=== PATIENT | male | born 1960 | race Caucasian/White ===

== ENCOUNTER → 2016-07-30 | Outpatient (CLI) | payer MEDICARE, MEDICAID ==
[~2016-07-30] MED LIST: /ADVA50050 INH; /RISE35TA OR; ADV250INH INH; ADVA45AE IN; ALBU17IN2 INH; BABY81CH OR; CALA240T PO; CALC12502; CHLO25TA PO; CLAR5CHW; CLAR5CHW OR; CLARITIN D; CRES5TAB OR; EFFE150C OR; EPI PEN SC; FERR325T OR; FLEXERIL OR; FLUT1SPR2; HYDR-3713 PO; LIDO5DIS EXT; LOPERAMIDE OR; LORA0.5T OR; LOSA25TA8 PO; LOVA1CAP17 PO; LOVAZA OR; MS C30TA2 OR; NAPR500T OR; NASONEX; ONDA4TAB6 PO; PREG100CA; RECL5INJ2 IV; RELP40TA PO; RELPAX OR; ROBA750T4 PO; SING10TA31; SING10TA31 OR; SOLARAZE; THERGRAN OR; TRAZ100T; TRAZ50TA PO; TRIA1CR TOP; TRIC145T19 OR; VENL150T PO; VICO5TAB OR; VITA-113 SL; VITA1CAP25 PO; VITATAB11 PO; ZANA4CAP OR; ZYRT10TA6 OR; [UNRECOGNIZED DRUG - OTHER] OR; amitiza PO; drisdol PO; lovaza PO; reclast INJ
--- NOTE | 2016-07-31 01:13 | ECWPNPC ---
PATIENT NAME: SHERON BACON : 1960 GENDER: MALE VISIT DATE: 07/30/2016 DISCHARGE DATE: 07/30/16 1137 VISIT LOCKED DATE TIME: PHYSICIAN: SHAKILA PEDERSEN PHYSICIAN PAGER NO: [phone] RESOURCE: SHAKILA PEDERSEN REASON FOR APPOINTMENT 1. NECK/BACK PAIN HISTORY OF PRESENT ILLNESS HISTORY OF PRESENT ILLNESS: PAIN THE PATIENT DESCRIBES THE PAIN... 55 YEAR OLD MALE PATIENT WITH HISTORY OF CHRONIC NECK AND BACK PAIN. PATIENT DESCRIBES THE PAIN ACHING WITH A PAIN SCORE OF 1/10. PATIENT HAS A CERVICAL FACET BLOCK DONE ON 05/11/16 AND REPORTS THE INJECTION HELPING SIGNIFICANTLY WITH HIS PAIN. MR. BACON REPORTS HAVING MINIMAL PAIN DUE TO THE LAST INJECTIONS. CURRENTLY THE PATIENT IS USING HYDROCODONE PRESCRIBED BY HIS PRIMARY CARE DOCTOR . PATIENT REPORTS HAVING A LITTLE ACHINESS IN HIS LOWER BACK AT TIMES BUT STATES HE IS ABLE TO MANAGE. PATIENT DENIES UNEXPLAINABLE WEIGHT LOSS, FEVER, CHILLS, NEW CHANGES ON HIS URINARY OR BOWEL CONTROL. FALL RISK SCREENING: SCREENING :NO FALLS IN THE PAST YEAR CURRENT MEDICATIONS TAKING EFFEXOR XR 150 MG CAPSULE EXTENDED RELEASE 24 HOUR 2 CAPSULES WITH FOOD ORALLY DAILY TAKING TRIAMCINOLONE ACETONIDE 0.1 % CREAM 1 APPLICATION TO AFFECTED AREA EXTERNALLY TO FACE TWICE A DAY PRN ECZEMA TAKING MULTIVITAMINS OTC TABLET 1 TAB ORALLY DAILY TAKING ZOFRAN 4 MG TABLET 1 TAB ORALLY EVERY 8 HOURS NEEDED TAKING LOSARTAN POTASSIUM 50 MG TABLET 1 TABLET ORALLY TWICE A DAY TAKING CHLORTHALIDONE 25 MG TABLET 1 TABLET IN THE MORNING ORALLY ONCE A DAY TAKING BLOOD GLUCOSE TEST STRIP 1 ONE TOUCH TEST STRIP 250.02 SUBCUTANEOUSLY DAILY TAKING LANCETS 1 LANCTES DEVICE DX:250.02 SUBCUTANEOUSLY DAILY TAKING METFORMIN HCL ER 500 MG TABLET EXTENDED RELEASE 24 HOUR 1 TABLET ORALLY TWICE DAILY TAKING DRISDOL 73862 UNIT CAPSULE 1 CAPSULE ORALLY EVERY OTHER WEEK TAKING CRESTOR 20 MG TABLET 1 TABLET ORALLY ONCE A DAY TAKING LOVAZA 1 GM CAPSULE 2 CAPSULES ORALLY TWICE A DAY TAKING VITAMIN B-12 1000 MCG TABLET 1 TABLET ORALLY ONCE A DAY TAKING ASPIR-81 81 MG TABLET DELAYED RELEASE 1 TABLET ORALLY ONCE A DAY TAKING ADVAIR DISKUS 250-50 MCG/DOSE MISCELLANEOUS 1 INHALATION EVERY 12 HRS TAKING PROVENTIL HFA 108 (90 BASE) MCG/ACT AEROSOL SOLUTION 2 PUFFS NEEDED INHALATION EVERY 4 HRS PRN WHEEZE TAKING LIDODERM 5 % PATCH 1 PATCH TO BOTH HIPS EXTERNALLY ONCE A DAY NEEDED ON 12 HOURS OFF 12 HOURS TAKING TENS UNIT ELECTRO PADS . . DIRECTED . NEEDED TAKING INDUSTRIAL BELT XL DX: 724.2 LUMBAR SUPPORT BELT DIRECTED . DAILY DURING WORK HOURS TAKING ZANAFLEX 4 MG TABLET 1 TABLET ORALLY EVERY 8 HOURS NEEDED FOR MUSCLE SPASTICITY MDD:3 TAKING HYDROCODONE-ACETAMINOPHEN 5-325 MG TABLET 1 TABLET NEEDED ORALLY EVERY 12 HRS PRN PAIN, MDD 2 TAKING EPIPEN 2-OSEAS 0.3 MG/0.3ML (1:1000) DEVICE INJECTABLE INTRAMUSCULAR ONCE NEEDED TAKING ZYRTEC ALLERGY 10 MG TABLET 1 TABLET ORALLY ONCE A DAY TAKING FLONASE 50 MCG/ACT SUSPENSION 2 NASALLY EVERY MORNING TAKING RELPAX 40 MG TABLET 1 TABLET AT ONSET OF HEADACHE, MAY REPEAT AFTER 2 HOURS IF HEADACHE RETURNS ORALLY DAILY PRN HEADACHE, NOTES: > 1 YEAR TAKING VOLTAREN 1 % GEL DIRECTED TRANSDERMAL FOUR TIMES DAILY TAKING TRAZODONE HCL 50 MG TABLET 2 TABLETS AT BEDTIME NEEDED ORALLY ONCE A DAY TAKING LACTULOSE 10 GM PACKET 1 PACKET ORALLY ONCE A DAY - STATES TAKES 15 GM MEDICATION LIST REVIEWED AND RECONCILED WITH THE PATIENT PAST MEDICAL HISTORY LUMBAR DJD-DIFFUSE, 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, DIFFUSE L2/3 AND L5/S1 BULGES BY 07/2014 MRI CHRONIC KIDNEY DISEASE STAGE III HYPERLIPIDEMIA 2B OSTEOPOROSIS NONALCOHOLIC FATTY LIVER DISEASE-SEEN BY AUGUST 2010 CT, FS 2010 FS2 LEVEL OF 45/NEGATIVE W/U-09/2010-REINDL/SEEN 10/2010 LIVER BIOPSY-MILDLY 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 (STAGE 2-3/4)//10/2014 FS 2 17 ANEMIA SECONDARY TO IRON DEFICIENCY MIGRAINE HEADACHES, COMMON TYPE-DECEMBER 2010 NORMAL MRA OF THE BRAIN/01/2011 NORMAL CTA BRAIN HISTORY OF BILATERAL NEPHROLITHIASIS ASTHMA MILD PERSISTENT CONSTIPATION CHRONIC OBSTRUCTIVE SLEEP APNEA VITAMIN B12 DEFICIENCY MUSHROOM ANAPHYLAXIS DYSPEPSIA/GERD ALLERGIC RHINITIS CHRONIC LEUKOPENIA DIABETES MELLITUS TYPE 2 HISTORY OF SBO, FEBRUARY 2010-LADI HISTORY OF NEPHROLITHIASIS-SEPTEMBER 2008, 24H URINE REMARKABLE FOR MILDLY ELEVATED CALCIUM AND URIC ACID ERECTILE DYSFUNCTION HISTORY OF HYPERCALCEMIA WITH SUPPRESSED PTH-SEPTEMBER 2009 WHOLE-BODY BONE SCAN WITH FOCAL UPTAKE BILATERAL RIBS AND COSTOVERTEBRAL JUNCTION/SEPTEMBER 2009 NEGATIVE WHOLE-BODY PET/CT SCAN AND BILATERAL RIB AND CHEST X-RAY ADENOMATOUS POLYP BY COLONOSCOPY OCTOBER 2010-REINDL/10/2011 NORMAL COLONOSCOPY-REINDL R HIP OA-MILD C CAM DEFORMITY SL FEMORAL HEAD BY 09/2013 BILATERAL TROCHANTERIC BURSITIS-MILD BY 09/2013 XRAY H/O GRANULOMA ANNULARE L DORSAL HAND ARTHRITIS TOES ALLERGIES CECLOR: HIVES: ALLERGY ERYTHROMYCIN: HIVES: ALLERGY PCN: HIVES: ALLERGY REGLAN: HIVES: ALLERGY MUSHROOMS: ANAPHYLAXIS: ALLERGY WATERMELON: HIVES: ALLERGY SURGICAL HISTORY NO SURGICAL HISTORY DOCUMENTED. FAMILY HISTORY NO FAMILY HISTORY DOCUMENTED. SOCIAL HISTORY GENERAL: TOBACCO USE ARE YOU A:NONSMOKER LEARNING BARRIERS / SPECIAL NEEDS ORIENTED TO PLAN OF CARE: PATIENT, PAIN MANAGEMENT PATIENT, ORIENTED TO PLAN OF CARE: PATIENT, PAIN MANAGEMENT PATIENT. NEW PATIENT PAIN DIARY TODAY'S VISITNOTES FROM 0-10, WHAT LEVEL IS YOUR PAIN TODAY?0 PAIN CLINIC PFS, CLERGY, PUBLIC HEALTH REFERRALS PFS REFERRAL NEEDED?NO CLERGY REFERRAL NEEDED?NO PUBLIC HEALTH REFERRAL NEEDED?NO WAS THE PROVIDER NOTIFIED OF ANY PERTINENT INFO?NO PFS REFERRAL NEEDED?NO CLERGY REFERRAL NEEDED?NO PUBLIC HEALTH REFERRAL NEEDED?NO WAS THE PROVIDER NOTIFIED OF ANY PERTINENT INFO?NO HOSPITALIZATION/MAJOR DIAGNOSTIC PROCEDURE NONE REVIEW OF SYSTEMS CONSTITUTIONAL: ANY CHANGE IN YOUR MEDICAL CONDITION? NO . CHILLS NO . FEVER NO . INFECTION: DO YOU HAVE NEW INFECTIONS? NO . DO YOU HAVE HISTORY OF MRSA? NO . MUSCULOSKELETAL: ANY NEW PATTERNS OF PAIN OR NUMBNESS? NO . GASTROENTEROLOGY: ANY NEW CHANGE IN BOWEL CONTROL? NO . GENITOURINARY: ANY NEW CHANGE IN BLADDER CONTROL? NO . IS THERE A CHANCE YOU COULD BE ? NO . HEMATOLOGY/LYMPH: DO YOU TAKE ANY BLOOD THINNERS? (FOR EXAMPLE- COUMADIN, PLAVIX, AGGRENOX, PLATEL, PRADAXA, OR XARELTO) NO . WHEN WAS YOUR LAST DOSE? DATE: TIME: . NEUROLOGY: HAVE YOU FALLEN IN THE PAST 6 MONTHS? NO . ANY NEW EXTREMITY NUMBNESS OR WEAKNESS? NO . CARDIOLOGY: DO YOU HAVE A PACEMAKER OR DEFIBRILLATOR? NO . RESPIRATORY: HAVE YOU BEEN SICK IN THE PAST WEEK? NO . FEVER NO . FLU LIKE SYMPTOMS? NO . COUGH NO . INTEGUMENTARY: DO YOU HAVE ANY RASHES OR OPEN SORES? NO . ALLERGIC/IMMUNO: ARE YOU ALLERGIC TO SHELLFISH OR IV DYE? NO . ANY NEW ALLERGIES? NO . PSYCHIATRIC: DO YOU HAVE THOUGHTS OF HURTING YOURSELF OR SOMEONE ELSE? NO . ARE YOU ABUSED, NEGLECTED, OR IN AN UNSAFE ENVIRONMENT? NO . ENDOCRINOLOGY: ARE YOU DIABETIC? YES . OTHER: DO YOU NEED ANY PRESCRIPTIONS? NO . IF YES, PLEASE LIST: ____ . ANY NEW PROBLEMS WITH YOUR MEDICATIONS? NO . WHEN DID YOU LAST EAT? ____ . WHEN DID YOU LAST DRINK? ____ . WHAT DID YOU LAST DRINK? ____ . NAME OF PERSON DRIVING YOU HOME? ____ . DO YOU HAVE ANY OTHER QUESTIONS OR CONCERNS NO . REVIEWED BY: PROVIDER: SHAKILA PEDERSEN MD . VITAL SIGNS WT 247 LBS, HT 74 IN, BMI 31.71 INDEX, BP 121/72 MM HG, HR 90 /MIN, RR 18 /MIN, TEMP 95.7 F, OXYGEN SAT % 95%, NA INITIALS SC 10:40, REVIEWED BY: CM. EXAMINATION : PATIENT IS ALERT O X 3 AND COOPERATIVE. TENDERNESS IN THE CERVICAL AREA. CT DONE ON 08/11/15 OF THE CERVICAL SPINE SHOWS OSTEOARTHRITIS AND BONE CYST IN RIGHT LAMINA OF C4. MRI OF THE LUMBAR SPINE DONE ON 08/09/14 SHOWS DISC BULGE AT L2-L3, L3-L4, L4-L5, AND L5-S1 WITH CANAL STENOSIS, AND FACET HYPERTROPHY. ASSESSMENTS SPONDYLOSIS WITHOUT MYELOPATHY OR RADICULOPATHY, CERVICAL REGION - M47.812 (PRIMARY) SPONDYLOSIS WITHOUT MYELOPATHY OR RADICULOPATHY, CERVICOTHORACIC REGION - M47.813 SPONDYLOSIS WITHOUT MYELOPATHY OR RADICULOPATHY, LUMBAR REGION - M47.816 SPONDYLOSIS WITHOUT MYELOPATHY OR RADICULOPATHY, LUMBOSACRAL REGION - M47.817 TREATMENT SPONDYLOSIS WITHOUT MYELOPATHY OR RADICULOPATHY, CERVICAL REGION NOTES: WE DISCUSSED SEVERAL ISSUES WITH MR. BACON'S PAIN MANAGEMENT CASE. AT THIS TIME THE PATIENT WILL CONTINUE USING THE SAME MEDICATION PRESCRIBED BY HIS PRIMARY DOCTOR. PATIENT AT THIS TIME DOES NOT NEED INTERVENTIONS HE HAS HAD A SIGNIFICANT DECREASE IN PAIN SINCE THE INJECTIONS. PATIENT WILL RETURN TO THE CLINIC IN 5 MONTHS BUT WAS ADVISED TO CALL IF PAIN WORSENS OR WITH ANY QUESTIONS OR CONCERNS. INSTRUCTIONS WERE GIVEN, QUESTIONS WERE ANSWERED, PATIENT REPORTS UNDERSTANDING AND AGREES WITH THE PLAN. I, LING MELISSA, DOCUMENTED THE ABOVE INFORMATION ACTING A SCRIBE FOR DR. PEDERSEN. I HAVE REVIEWED THE ABOVE DOCUMENT, WRITTEN BY LING DUNNE AND I VERIFY THAT IT IS ACCURATE. PROCEDURE CODES FA211 ESTABILISHED PATIENT [facility] CHARGE G8427 DOC MEDS VERIFIED W/PT OR RE G8708 PAIN ASSESS POS TOOL F/U PLAN DOC FOLLOW UP 4 MONTHS ELECTRONICALLY SIGNED BY SHAKILA PEDERSEN MD ON 07/30/2016 AT 06:04 PM EST DISCLAIMER : THIS IS A VISIT SUMMARY EXTRACTED FROM THE [employer] CHART. IT IS NOT A COPY OF THE [employer] PROGRESS NOTE. BRANDAN
== END ==
LOC: M PAIN 10:40
PROVIDERS: ATTEND Anesthesiology
DX: Z09 Encounter for follow-up examination after completed treatment for conditions other than malignant neoplasm (principal); M47.812 Spondylosis without myelopathy or radiculopathy, cervical region; M47.813 Spondylosis without myelopathy or radiculopathy, cervicothoracic region; M47.816 Spondylosis without myelopathy or radiculopathy, lumbar region; M47.817 Spondylosis without myelopathy or radiculopathy, lumbosacral region; M51.37 Other intervertebral disc degeneration, lumbosacral region; M51.27 Other intervertebral disc displacement, lumbosacral region; N18.3 Chronic kidney disease, stage 3 (moderate); E11.9 Type 2 diabetes mellitus without complications; E78.5 Hyperlipidemia, unspecified; M81.0 Age-related osteoporosis without current pathological fracture; K75.81 Nonalcoholic steatohepatitis (NASH); D50.9 Iron deficiency anemia, unspecified; G43.909 Migraine, unspecified, not intractable, without status migrainosus; J45.909 Unspecified asthma, uncomplicated; K59.04 Chronic idiopathic constipation; G47.33 Obstructive sleep apnea (adult) (pediatric); D51.9 Vitamin B12 deficiency anemia, unspecified; K30 Functional dyspepsia; D72.819 Decreased white blood cell count, unspecified; M16.11 Unilateral primary osteoarthritis, right hip; M19.079 Primary osteoarthritis, unspecified ankle and foot; Z91.018 Allergy to other foods; Z88.8 Allergy status to other drugs, medicaments and biological substances; Z79.84 Long term (current) use of oral hypoglycemic drugs; Z79.82 Long term (current) use of aspirin; Z79.891 Long term (current) use of opiate analgesic; Z87.19 Personal history of other diseases of the digestive system; Z87.2 Personal history of diseases of the skin and subcutaneous tissue

== ENCOUNTER → 2016-08-04 | Outpatient (CLI) | payer MEDICARE, MEDICAID ==
--- NOTE | 2016-08-06 12:42 | REP ---
PA and lateral views of the right hand 08/04/2016 Indication ganglion cyst of finger Comparison: Right hand series 09/29/2012 Findings: Flexion deformity is noted at the fifth DIP joint., with radial angulation of the fifth distal phalanx. There is mild flexion of the fifth PIP joint as well. There is focal nodular soft tissue prominence at the radial aspect of the mid portion of the fifth middle phalanx, which may be consistent with ganglion cyst. There is no acute fracture or dislocation within the right hand Carpal bones are intact. Impression: Flexion deformity within the fifth digit most pronounced at PIP joint. Small nodular focus of soft tissue prominence along the radial aspect of the mid shaft of fifth middle phalanx consistent with ganglion cyst. Consider Orthopedic evaluation Signed by Rosemarie Simms MD 08/06/2016 12:33 P
== END ==
LOC: M WUC 08:26
PROVIDERS: ATTEND Physician Assistant Medical
DX: M67.441 Ganglion, right hand (principal)
CPT/HCPCS: 73120; G0463

== ENCOUNTER → 2016-10-10 | Outpatient (CLI) | payer MEDICARE, MEDICAID ==
--- NOTE | 2016-10-14 07:37 | SLEEPCENT ---
DATE OF PROCEDURE: 10/10/2016 ORDERED BY: Maddie Lui. Nocturnal polysomnography was performed due to concern for the obstructive sleep apnea syndrome in this patient with a prior history of same who has not used pressure therapy in greater than 5 years. 8 hours and 51 minutes of data were reviewed. There were 503 minutes of sleep identified. Sleep latency was short at 5 minutes. Rapid eye movement (REM) sleep was delayed at 370 minutes. Sleep architecture showed poor progression and some fragmentation and sleep efficiency was good at 95.7% but REM time was reduced to one-third. Patient EKG showed a sinus mechanism with an average heart rate of 66 beats per minute. Rate variability was seen surrounding respiratory events. EEG showed course wave forms, possibly medication effect. No focal advert abnormalities were appreciated. There were only 51 respiratory events identified of 10 seconds in duration or greater for an apnea-hypopnea index of 6.1. The events were more central than obstructive, in total 40 central and mixed apneas to 11 obstructive events. Respiratory events were not stage related but were more frequent in the supine posture. Arousals from respiratory events occurred 4.3 times per hour when arousals from snoring were included. Oxygen saturations remained acceptable for much of the study. Occasional drops below 90% were seen. There was, however, some limb activity quite frequent in the early portion of the study. At least three trains of events and limb movement arousal index was 9.5. IMPRESSION: 1. Complex albeit mild sleep apnea (G47.31, G47.33). Apnea-hypopnea index 6.1 - supine predominant. 2. Periodic limb movement disorder (G47.61). Limb movement arousal index 9.5. RECOMMENDATION: Physician retraining for avoidance of the supine posture may be efficient to address this patient's respiratory events. Given that they were central in description, this may be a preferable approach than pressure therapy would. Interventions to reduce the frequency of arousal from limb activity is likely to result in improved efficiency of sleep.
== END ==
LOC: M SLEEP 20:00
PROVIDERS: ATTEND Nurse Practitioner Adult Health
DX: G47.31 Primary central sleep apnea (principal); G47.33 Obstructive sleep apnea (adult) (pediatric); G47.61 Periodic limb movement disorder

== ENCOUNTER → 2016-11-08 | Outpatient (REF) | payer MEDICARE, MEDICAID, OTHER | LOC: M SFHCPLAZ 11:41 | PROVIDERS: ATTEND Physician Assistant Medical | DX: L02.11 Cutaneous abscess of neck (principal) | CPT/HCPCS: 10060; 87070; 87077; 87186; 87205; G0463 ==

== ENCOUNTER → 2016-11-27 | Outpatient (CLI) | payer OTHER, MEDICAID ==
--- NOTE | 2016-11-30 11:02 | SLEEPCENT ---
DATE OF PROCEDURE: 11/27/2016 ORDERED BY: Maddie Lui. Nocturnal polysomnography was performed for the titration of pressure therapy in this patient with obstructive sleep apnea syndrome. For testing, the patient was fit with a ResMed AirFit F20 full face mask of medium size, 4 cm of water pressure was initially applied to the circuit and the lights were extinguished. 7 hours and 41 minutes of data were reviewed. There were 258 minutes of sleep identified. Sleep latency was prolonged at 147 minutes. REM latency was mildly prolonged at 201 minutes. Sleep architecture showed poor progression, some fragmentation early in study. Best sleep was seen late in the test. There was one rapid eye movement (REM) episode appreciated. Overall sleep efficiency was 56%. Patient's EKG showed a sinus rhythm with an average heart rate of 78 beats per minute. EEG showed normal wave forms for wake and sleep. Multiple pressure applications were made for a period of time late in the study. A Bilevel device was applied with the addition of backup rate due to central apneas. Best sleep was seen on a CPAP pressure of +8. Some mild snoring was noted despite this pressure but the patient did sleep through REM without respiratory event or significant oxygen desaturation. IMPRESSION: Obstructive sleep apnea syndrome (G47.33). RECOMMENDATION: Nightly use of pressure therapy 8 cm of water.
== END ==
LOC: M SLEEP 20:00
PROVIDERS: ATTEND Nurse Practitioner Adult Health
DX: G47.33 Obstructive sleep apnea (adult) (pediatric) (principal)

== ENCOUNTER → 2016-12-27 | Outpatient (CLI) | payer MEDICARE, MEDICAID | END | disposition home or self-care (01) | LOC: M PAIN 09:00 | PROVIDERS: ATTEND Anesthesiology | DX: G89.29 Other chronic pain (principal); M47.812 Spondylosis without myelopathy or radiculopathy, cervical region; M47.813 Spondylosis without myelopathy or radiculopathy, cervicothoracic region; M47.816 Spondylosis without myelopathy or radiculopathy, lumbar region; M47.817 Spondylosis without myelopathy or radiculopathy, lumbosacral region; M51.37 Other intervertebral disc degeneration, lumbosacral region; M51.27 Other intervertebral disc displacement, lumbosacral region; N18.3 Chronic kidney disease, stage 3 (moderate); E11.9 Type 2 diabetes mellitus without complications; E78.5 Hyperlipidemia, unspecified; M81.0 Age-related osteoporosis without current pathological fracture; K75.81 Nonalcoholic steatohepatitis (NASH); D50.9 Iron deficiency anemia, unspecified; G43.909 Migraine, unspecified, not intractable, without status migrainosus; J45.909 Unspecified asthma, uncomplicated; K59.04 Chronic idiopathic constipation; G47.33 Obstructive sleep apnea (adult) (pediatric); D51.9 Vitamin B12 deficiency anemia, unspecified; K30 Functional dyspepsia; D72.819 Decreased white blood cell count, unspecified; M16.11 Unilateral primary osteoarthritis, right hip; M19.079 Primary osteoarthritis, unspecified ankle and foot; Z91.018 Allergy to other foods; Z88.8 Allergy status to other drugs, medicaments and biological substances; Z79.84 Long term (current) use of oral hypoglycemic drugs; Z79.82 Long term (current) use of aspirin; Z79.891 Long term (current) use of opiate analgesic; Z87.19 Personal history of other diseases of the digestive system; Z87.2 Personal history of diseases of the skin and subcutaneous tissue ==

== ENCOUNTER → 2017-01-07 | Outpatient (CLI) | payer MEDICARE, MEDICAID ==
[~2017-01-07] MED LIST changes: +ASPI1TAB PO; +BUPIVACAINE HCL 0.25% 30 ML VIAL As Ordered ONE; +CRES20TA PO; +EFFE150C PO; +FLOM5CAP PO; +IMIT50TA PO; +ISOVUE-M 300 61% 15ML VIAL (Q9967) As Ordered ONE; +LACT10SO29 PO; +LIDO1OIN2 TOP; +LIDO5DIS41 TD; +LIDOCAINE 1% SDV INJ 30 ML VIAL As Ordered ONE; +METF-699 PO; +NAPR250T4 PO; +OMEG100011 PO; +THERTAB30 PO; +TIZA4CAP3 PO; +TRAZ50TA11 PO; +TRIAMCINOLONE ACETONIDE SUSP 40 MG/ML VIAL (J3301) As Ordered ONE; +TYLE650T35 PO; +VOLT1GEL15 TD; +ZYRT10CA PO
--- NOTE | 2017-01-18 23:21 | ECWPNPC ---
PATIENT NAME: SHERON BACON : 1960 GENDER: MALE VISIT DATE: 01/07/2017 DISCHARGE DATE: 01/07/17 1501 VISIT LOCKED DATE TIME: PHYSICIAN: SHAKILA PEDERSEN PHYSICIAN PAGER NO: [phone] RESOURCE: SHAKILA PEDERSEN REASON FOR APPOINTMENT 1. LFBT HISTORY OF PRESENT ILLNESS HISTORY OF PRESENT ILLNESS: PAIN THE PATIENT DESCRIBES THE PAIN... FALL RISK SCREENING: SCREENING :NO FALLS IN THE PAST YEAR CURRENT MEDICATIONS TAKING ZYRTEC ALLERGY 10 MG TABLET 1 TABLET ORALLY ONCE A DAY, NOTES: 01-07-17799 TAKING FLONASE 50 MCG/ACT SUSPENSION 2 NASALLY EVERY MORNING, NOTES: 01-06-172099 TAKING CRESTOR 20 MG TABLET 1 TABLET ORALLY ONCE A DAY, NOTES: 01-07-17799 TAKING BACTROBAN 2 % OINTMENT 1 THIN LAYER TO EACH NOSTRIL EXTERNALLY BID, NOTES: NONE TAKING HIBICLENS 4 % LIQUID APPLY TO BODY, SCALP FOR 10MIN.S IN SHOWER THEN RINSE EXTERNALLY DAILY, NOTES: NONE TAKING BLOOD GLUCOSE TEST STRIP 1 ONE TOUCH TEST STRIP 250.02 SUBCUTANEOUSLY DAILY TAKING METFORMIN HCL ER 500 MG TABLET EXTENDED RELEASE 24 HOUR 1 TABLET ORALLY TWICE DAILY, NOTES: 01-07-17799 TAKING DRISDOL 95241 UNIT CAPSULE 1 CAPSULE ORALLY EVERY OTHER WEEK, NOTES: 01-13-17 TAKING RECLAST 5 MG/100ML SOLUTION DIRECTED INTRAVENOUS YEARLY, NOTES: NOT YET TAKING EFFEXOR XR 150 MG CAPSULE EXTENDED RELEASE 24 HOUR 2 CAPSULES WITH FOOD ORALLY DAILY, NOTES: 01-06-172099 TAKING TRIAMCINOLONE ACETONIDE 0.1 % CREAM 1 APPLICATION TO AFFECTED AREA EXTERNALLY TO FACE TWICE A DAY PRN ECZEMA, NOTES: 01-07-17799 TAKING MULTIVITAMINS OTC TABLET 1 TAB ORALLY DAILY, NOTES: 01-07-17799 TAKING LANCETS 1 LANCTES DEVICE DX:250.02 SUBCUTANEOUSLY DAILY TAKING VITAMIN B-12 1000 MCG TABLET 1 TABLET ORALLY ONCE A DAY, NOTES: 01-06-172099 TAKING ASPIR-81 81 MG TABLET DELAYED RELEASE 1 TABLET ORALLY ONCE A DAY, NOTES: 01-06-172099 TAKING ADVAIR DISKUS 250-50 MCG/DOSE MISCELLANEOUS 1 INHALATION EVERY 12 HRS, NOTES: 01-06-172099 TAKING PROVENTIL HFA 108 (90 BASE) MCG/ACT AEROSOL SOLUTION 2 PUFFS NEEDED INHALATION EVERY 4 HRS PRN WHEEZE, NOTES: NONE TAKING INDUSTRIAL BELT XL DX: 724.2 LUMBAR SUPPORT BELT DIRECTED . DAILY DURING WORK HOURS TAKING HYDROCODONE-ACETAMINOPHEN 5-325 MG TABLET 1 TABLET NEEDED ORALLY EVERY 12 HRS PRN PAIN, MDD 2, NOTES: COUPLE WEEKS AGO TAKING EPIPEN 2-OSEAS 0.3 MG/0.3ML (1:1000) DEVICE INJECTABLE INTRAMUSCULAR ONCE NEEDED TAKING RELPAX 40 MG TABLET 1 TABLET AT ONSET OF HEADACHE, MAY REPEAT AFTER 2 HOURS IF HEADACHE RETURNS ORALLY DAILY PRN HEADACHE, NOTES: > 1 YEAR TAKING TRAZODONE HCL 50 MG TABLET 2 TABLETS AT BEDTIME NEEDED ORALLY ONCE A DAY, NOTES: NONE RECENT TAKING LACTULOSE 10 GM PACKET 1 PACKET ORALLY ONCE A DAY - STATES TAKES 15 GM TAKING VOLTAREN 1 % GEL DIRECTED TRANSDERMAL FOUR TIMES DAILY, NOTES: NONE RECENT TAKING TENS UNIT ELECTRO PADS . . DIRECTED . NEEDED TAKING LOSARTAN POTASSIUM 50 MG TABLET 1 TABLET ORALLY TWICE DAILY, NOTES: 01-07-17 0800 TAKING ZANAFLEX 4 MG TABLET 1 TABLET ORALLY EVERY 8 HOURS NEEDED FOR MUSCLE SPASTICITY MDD:3, NOTES: 01-06-17 2100 TAKING LOVAZA 1 GM CAPSULE TAKE TWO CAPSULES BY MOUTH TWICE A DAY , NOTES: 01-07-17 0800 TAKING ZOFRAN 4 MG TABLET 1 TAB USUALLY 1-2X/W ORALLY ONE TO TWO TIMES A WEEK NEEDED, NOTES: COUPLE DAYS AGO TAKING LIDODERM 5 % PATCH 2 PATCH TO BOTH HIPS EXTERNALLY ONCE A DAY NEEDED ON 12 HOURS OFF 12 HOURS, NOTES: 01-06-17 TAKING SASHA KNEE BRACE HINGED - MISCELLANEOUS DIRECTED WHILE OOBED WALKING R KNEE _ DAILY NOT-TAKING ZOFRAN 4 MG TABLET 1 TAB ORALLY EVERY 8 HOURS NEEDED MEDICATION LIST REVIEWED AND RECONCILED WITH THE PATIENT PAST MEDICAL HISTORY LUMBAR DJD-DIFFUSE, 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, DIFFUSE L2/3 AND L5/S1 BULGES BY 07/2014 MRI CHRONIC KIDNEY DISEASE STAGE III HYPERLIPIDEMIA 2B OSTEOPOROSIS NONALCOHOLIC FATTY LIVER DISEASE-SEEN BY AUGUST 2010 CT, FS 2010 FS2 LEVEL OF 45/NEGATIVE W/U-09/2010-REINDL/SEEN 10/2010 LIVER BIOPSY-MILDLY 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 (STAGE 2-3/4)//10/2014 FS 2 17 ANEMIA SECONDARY TO IRON DEFICIENCY MIGRAINE HEADACHES, COMMON TYPE-DECEMBER 2010 NORMAL MRA OF THE BRAIN/01/2011 NORMAL CTA BRAIN HISTORY OF BILATERAL NEPHROLITHIASIS ASTHMA MILD PERSISTENT CONSTIPATION CHRONIC OBSTRUCTIVE SLEEP APNEA VITAMIN B12 DEFICIENCY MUSHROOM ANAPHYLAXIS DYSPEPSIA/GERD ALLERGIC RHINITIS CHRONIC LEUKOPENIA DIABETES MELLITUS TYPE 2 HISTORY OF SBO, FEBRUARY 2010-LADI HISTORY OF NEPHROLITHIASIS-SEPTEMBER 2008, 24H URINE REMARKABLE FOR MILDLY ELEVATED CALCIUM AND URIC ACID ERECTILE DYSFUNCTION HISTORY OF HYPERCALCEMIA WITH SUPPRESSED PTH-SEPTEMBER 2009 WHOLE-BODY BONE SCAN WITH FOCAL UPTAKE BILATERAL RIBS AND COSTOVERTEBRAL JUNCTION/SEPTEMBER 2009 NEGATIVE WHOLE-BODY PET/CT SCAN AND BILATERAL RIB AND CHEST X-RAY ADENOMATOUS POLYP BY COLONOSCOPY OCTOBER 2010-REINDL/10/2011 NORMAL COLONOSCOPY-REINDL R HIP OA-MILD C CAM DEFORMITY SL FEMORAL HEAD BY 09/2013 BILATERAL TROCHANTERIC BURSITIS-MILD BY 09/2013 XRAY 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 CONSTITUTIONAL: ANY CHANGE IN YOUR MEDICAL CONDITION? NO . CHILLS NO . FEVER NO . INFECTION: DO YOU HAVE NEW INFECTIONS? NO . DO YOU HAVE HISTORY OF MRSA? NO . MUSCULOSKELETAL: ANY NEW PATTERNS OF PAIN OR NUMBNESS? NO . GASTROENTEROLOGY: ANY NEW CHANGE IN BOWEL CONTROL? NO . GENITOURINARY: ANY NEW CHANGE IN BLADDER CONTROL? NO . IS THERE A CHANCE YOU COULD BE ? NO . HEMATOLOGY/LYMPH: DO YOU TAKE ANY BLOOD THINNERS? (FOR EXAMPLE- COUMADIN, PLAVIX, AGGRENOX, PLATEL, PRADAXA, OR XARELTO) NO . WHEN WAS YOUR LAST DOSE? DATE: TIME: . NEUROLOGY: HAVE YOU FALLEN IN THE PAST 6 MONTHS? NO . ANY NEW EXTREMITY NUMBNESS OR WEAKNESS? NO . CARDIOLOGY: DO YOU HAVE A PACEMAKER OR DEFIBRILLATOR? NO . RESPIRATORY: HAVE YOU BEEN SICK IN THE PAST WEEK? NO . FEVER NO . FLU LIKE SYMPTOMS? NO . COUGH NO . INTEGUMENTARY: DO YOU HAVE ANY RASHES OR OPEN SORES? NO . ALLERGIC/IMMUNO: ARE YOU ALLERGIC TO SHELLFISH OR IV DYE? NO . ANY NEW ALLERGIES? NO . PSYCHIATRIC: DO YOU HAVE THOUGHTS OF HURTING YOURSELF OR SOMEONE ELSE? NO . ARE YOU ABUSED, NEGLECTED, OR IN AN UNSAFE ENVIRONMENT? NO . ENDOCRINOLOGY: ARE YOU DIABETIC? YES FSBS= 151 TOOK AM DIABETIC MEDS . OTHER: DO YOU NEED ANY PRESCRIPTIONS? NO . IF YES, PLEASE LIST: ____ . ANY NEW PROBLEMS WITH YOUR MEDICATIONS? NO . WHEN DID YOU LAST EAT? 01-06-17 7PM . WHEN DID YOU LAST DRINK? 01-07-17 10AM . WHAT DID YOU LAST DRINK? SODA . NAME OF PERSON DRIVING YOU HOME? DEVIN BACON . DO YOU HAVE ANY OTHER QUESTIONS OR CONCERNS NO . VITAL SIGNS WT 236.4 LBS, HT 74 IN, BMI 30.35 INDEX, BP 120/72 MM HG, HR 87 /MIN, RR 18 /MIN, TEMP 98.9 F, OXYGEN SAT % 99%, NA INITIALS SC 12:24, REVIEWED BY: CM. ASSESSMENTS SPONDYLOSIS WITHOUT MYELOPATHY OR RADICULOPATHY, LUMBAR REGION - M47.816 (PRIMARY) SPONDYLOSIS WITHOUT MYELOPATHY OR RADICULOPATHY, LUMBOSACRAL REGION - M47.817 PROCEDURES PN LUMBAR FACET BLOCK THERAPEUTIC PRE PROCEDURE DIAGNOSIS LUMBAR SPONDYLOSIS, LUMBOSACRAL SPONDYLOSIS POST PROCEDURE DIAGNOSIS LUMBAR SPONDYLOSIS, LUMBOSACRAL SPONDYLOSIS PROCEDURE BILATERAL L4-L5 AND BILATERAL L5-S1 LUMBAR FACET THERAPEUTIC BLOCK SURGEON DR. SHAKILA PEDERSEN LIFE EDUCATOR NONE ANESTHESIA LOCAL PRE PROCEDURE NOTE THE PATIENT HAS A HISTORY OF CHRONIC LOW BACK PAIN. I EVALUATE THE PATIENT AND REVIEWED THE CHART. I WENT OVER THE RISKS, ALTERNATIVES, AND BENEFITS ASSOCIATED WITH THIS PROCEDURE. THE PATIENT WOULD LIKE TO PROCEED AND GIVE CONSENT TO PERFORMED THE PROCEDURE. THE PATIENT DENIES UNEXPLAINABLE WEIGHT LOSS, FEVER, CHILLS, OR NEW CHANGES IN URINARY OR BOWEL CONTROL DESCRIPTION OF PROCEDURE THE PATIENT WAS BROUGHT TO THE PROCEDURE ROOM AND PLACED IN THE PRONE POSITION. THE LUMBOSACRAL AREA WAS CLEANED WITH CHLORAPREP SOLUTION AND DRAPED ASEPTICALLY. THE PROCEDURE WAS DONE UNDER STERILE CONDITIONS. I CHECKED LATERALITY AND THE LEVEL WHERE THE PROCEDURE WAS GOING TO BE PERFORMED WITH THE PATIENT AND THE SUPPORTING STAFF AT THE MOMENT OF THE TIME OUT IN THE PROCEDURE ROOM. UNDER FLUOROSCOPIC GUIDANCE, THE TARGET POINT WAS SELECTED AT THE RIGHT AND LEFT L4-L5 AND RIGHT AND LEFT L5-S1 FACET JOINT. TARGET POINT WAS SELECTED AFTER LATERAL ROTATION AND TILT OF THE MAGNIFIER OF THE C-ARM. LIDOCAINE 0.5% WAS USED TO NUMB THE SKIN AND THE SUBCUTANEOUS TISSUE BELOW IT. SPINAL NEEDLES, 22-GAUGE, WERE ADVANCED UNDER FLUOROSCOPIC GUIDANCE AND FOLLOWING PATIENT FEEDBACK UNTIL THE TARGETS WERE TOUCHED. THE POSITION OF THE NEEDLES WAS VERIFIED WITH AP AND LATERAL VIEWS. AFTER PROPER POSITION OF THE NEEDLES WAS ACHIEVED, ISOVUE-M DYE 30% 0.1 ML WAS INJECTED SHOWING ADEQUATE SPREAD OF THE DYE. THEN A SOLUTION OF 1.9 ML OF BUPIVACAINE 0.125% OF KENALOG 10 MG WAS INJECTED AT EACH SITE. THERE WAS NO EVIDENCE OF BLOOD, PARESTHESIA OR CEREBROSPINAL FLUID DURING THE PROCEDURE. THE PATIENT WAS SENT TO THE RECOVERY ROOM. THE PATIENT WAS MOVING THE EXTREMITIES AND DOING WELL. THERE WAS NO COMPLICATION DURING THE PROCEDURE. FLUOROSCOPY TIME WAS 13 SECONDS POST PROCEDURE NOTE THE PATIENT WILL BE SEEN IN A FOLLOW UP IN THE NEXT FEW WEEKS. INSTRUCTIONS WERE GIVEN, QUESTIONS WERE ANSWERED, AND THE PATIENT EXPRESSED UNDERSTANDING AND AGREES WITH THE PLAN. I, LING MELISSA, DOCUMENTED THE ABOVE INFORMATION ACTING A SCRIBE FOR DR. PEDERSEN. I HAVE REVIEWED THE ABOVE DOCUMENT, WRITTEN BY LING MELISSA SCRIBTirso AND I VERIFY THAT IT IS ACCURATE DIAGNOSTIC IMAGING [facility] FACET BLOCK (PAIN)[id number] PROCEDURE CODES 37200 INJ PARAVERT F JNT L/S 1 LEV 73227 INJ PARAVERT F JNT L/S 2 LEV 6045F RADXPS IN END [id number] PXD DISPOSITION & COMMUNICATION FOLLOW UP 3 WEEKS ELECTRONICALLY SIGNED BY SHAKILA PEDERSEN MD ON 01/18/2017 AT 08:51 PM EDT DISCLAIMER : THIS IS A VISIT SUMMARY EXTRACTED FROM THE [employer] CHART. IT IS NOT A COPY OF THE [employer] PROGRESS NOTE. MTDD
== END | disposition home or self-care (01) ==
LOC: M PAIN 11:40
PROVIDERS: ATTEND Anesthesiology
DX: G89.29 Other chronic pain (principal); M47.816 Spondylosis without myelopathy or radiculopathy, lumbar region; M47.817 Spondylosis without myelopathy or radiculopathy, lumbosacral region; M51.37 Other intervertebral disc degeneration, lumbosacral region; M51.27 Other intervertebral disc displacement, lumbosacral region; N18.3 Chronic kidney disease, stage 3 (moderate); E11.9 Type 2 diabetes mellitus without complications; E78.5 Hyperlipidemia, unspecified; M81.0 Age-related osteoporosis without current pathological fracture; K75.81 Nonalcoholic steatohepatitis (NASH); D50.9 Iron deficiency anemia, unspecified; G43.909 Migraine, unspecified, not intractable, without status migrainosus; J45.909 Unspecified asthma, uncomplicated; K59.04 Chronic idiopathic constipation; G47.33 Obstructive sleep apnea (adult) (pediatric); D51.9 Vitamin B12 deficiency anemia, unspecified; K30 Functional dyspepsia; D72.819 Decreased white blood cell count, unspecified; M16.11 Unilateral primary osteoarthritis, right hip; M19.079 Primary osteoarthritis, unspecified ankle and foot; Z91.018 Allergy to other foods; Z88.8 Allergy status to other drugs, medicaments and biological substances; Z79.84 Long term (current) use of oral hypoglycemic drugs; Z79.82 Long term (current) use of aspirin; Z79.891 Long term (current) use of opiate analgesic; Z87.19 Personal history of other diseases of the digestive system; Z87.2 Personal history of diseases of the skin and subcutaneous tissue; Z79.899 Other long term (current) drug therapy
CPT/HCPCS: 36415; 64493; 64494; 80053; 80061; 82105; 82747; 83036; 84443; 84550; 85025; 85610; 85730; J3301; Q9967

== ENCOUNTER → 2017-01-07 | Outpatient (REF) | payer MEDICARE, MEDICAID ==
[~2017-01-07] MED LIST changes: -ASPI1TAB PO; -BUPIVACAINE HCL 0.25% 30 ML VIAL As Ordered ONE; -CRES20TA PO; -EFFE150C PO; -FLOM5CAP PO; -IMIT50TA PO; -ISOVUE-M 300 61% 15ML VIAL (Q9967) As Ordered ONE; -LACT10SO29 PO; -LIDO1OIN2 TOP; -LIDO5DIS41 TD; -LIDOCAINE 1% SDV INJ 30 ML VIAL As Ordered ONE; -METF-699 PO; -NAPR250T4 PO; -OMEG100011 PO; -THERTAB30 PO; -TIZA4CAP3 PO; -TRAZ50TA11 PO; -TRIAMCINOLONE ACETONIDE SUSP 40 MG/ML VIAL (J3301) As Ordered ONE; -TYLE650T35 PO; -VOLT1GEL15 TD; -ZYRT10CA PO
[2017-01-07 12:13] LABS: BASO % 1.1 % (0.0-1.0); EOS # 0.2 K/mm3 (0.0-0.50); EOS % 5.3 % (0.0-3.0); LARGE UNSTAINED CELL # 0.1 K/mm3 (0.0-0.4); LARGE UNSTAINED CELL % 1.2 % (0.0-4.0); LYMPH # 0.7 K/mm3 (1.5-4.5); LYMPH % 13.7 % (24.0-44.0); MEAN CORPUSCULAR HEMOGLOBIN 29.3 pg (27.0-33.0); MEAN CORPUSCULAR HGB CONC 33.3 g/dl (32.0-36.5); MEAN CORPUSCULAR VOLUME 87.8 fl (80.0-96.0); MONO # 0.3 K/mm3 (0.0-0.8); MONO % 5.8 % (0.0-5.0); NEUTROPHILS # 3.4 K/mm3 (1.8-7.7); NEUTROPHILS % 72.9 % (36.0-66.0); PLATELET COUNT, AUTOMATED 187 k/mm3 (150-450); WHITE BLOOD COUNT 4.7 K/mm3 (4.0-10.0)
[2017-01-07 12:27] LABS: INR 0.91
[2017-01-07 12:39] LABS: ALBUMIN 4.1 GM/DL (3.2-5.2); ALBUMIN/GLOBULIN RATIO 1.41 (1.00-1.93); ALKALINE PHOSPHATASE 144 U/L (45-117); ALT/SGPT 62 U/L (12-78); ANION GAP 8 MEQ/L (8-16); AST/SGOT 35 U/L (15-37); BILIRUBIN,TOTAL 0.5 MG/DL (0.2-1.0); BLOOD UREA NITROGEN 14 MG/DL (7-18); CALCIUM LEVEL 9.5 MG/DL (8.5-10.1); CARBON DIOXIDE LEVEL 27 MEQ/L (21-32); CHLORIDE LEVEL 108 MEQ/L (98-107); CHOLESTEROL LEVEL 95 MG/DL (<200); CREATININE FOR GFR 1.04 MG/DL (0.70-1.30); GLOMERULAR FILTRATION RATE > 60.0 (>56); GLUCOSE, FASTING 130 MG/DL (70-105); POTASSIUM SERUM 4.5 MEQ/L (3.5-5.1); SODIUM LEVEL 143 MEQ/L (136-145); TRIGLYCERIDES LEVEL 143 MG/DL (<150); URIC ACID 5.9 MG/DL (3.5-7.2)
[2017-01-07 14:00] LABS: PRETREATED FOLATE FOR RBCFOL 23.9 NG/ML
--- NOTE | 2017-01-07 15:49 | REP ---
FACET BLOCK: The images were reviewed with Dr. Malhotra. The patient has a history of low back pain. The portable C-Arm is provided in the OR for Dr. Larios for fluoroscopic guidance. Two intraoperative fluoroscopic spot films were obtained for needle placement verification for bilateral lumbar facet injection. The films are on the PACs system and are available for review. 13 seconds of fluoroscopy time was utilized for this procedure.
== END ==
LOC: M SFHCPLAZ 07:52
PROVIDERS: ATTEND Family Medicine
DX: K76.0 Fatty (change of) liver, not elsewhere classified (principal); E11.9 Type 2 diabetes mellitus without complications; M19.90 Unspecified osteoarthritis, unspecified site

== ENCOUNTER → 2017-01-14 | Outpatient (REF) | payer MEDICARE, MEDICAID ==
[~2017-01-14] MED LIST changes: +ASPI1TAB PO; +CRES20TA PO; +EFFE150C PO; +FLOM5CAP PO; +IMIT50TA PO; +LACT10SO29 PO; +LIDO1OIN2 TOP; +LIDO5DIS41 TD; +METF-699 PO; +NAPR250T4 PO; +OMEG100011 PO; +THERTAB30 PO; +TIZA4CAP3 PO; +TRAZ50TA11 PO; +TYLE650T35 PO; +VOLT1GEL15 TD; +ZYRT10CA PO
[2017-01-14 11:44] LABS: BASO % 0.4 % (0.0-1.0); EOS # 0.2 K/mm3 (0.0-0.50); EOS % 2.4 % (0.0-3.0); LARGE UNSTAINED CELL # 0.1 K/mm3 (0.0-0.4); LARGE UNSTAINED CELL % 1.5 % (0.0-4.0); LYMPH # 1.2 K/mm3 (1.5-4.5); LYMPH % 12.5 % (24.0-44.0); MEAN CORPUSCULAR HEMOGLOBIN 30.6 pg (27.0-33.0); MEAN CORPUSCULAR HGB CONC 34.9 g/dl (32.0-36.5); MEAN CORPUSCULAR VOLUME 87.9 fl (80.0-96.0); MONO # 0.5 K/mm3 (0.0-0.8); MONO % 5.9 % (0.0-5.0); NEUTROPHILS # 6.8 K/mm3 (1.8-7.7); NEUTROPHILS % 77.1 % (36.0-66.0); PLATELET COUNT, AUTOMATED 194 k/mm3 (150-450); RED CELL DISTRIBUTION WIDTH 14.2 % (11.5-14.5); RETIC HEMOGLOBIN CONTENT CHr 33.4 PG (24-36); RETICULOCYTE ABSOLUTE ADVIA212 162 x10(9)/L (17-77); WHITE BLOOD COUNT 8.8 K/mm3 (4.0-10.0)
[2017-01-14 12:03] LABS: VITAMIN B12 LEVEL 1044 PG/ML (247-911)
[2017-01-14 12:27] LABS: FERRITIN 89 NG/ML (26-388); PERCENT SATURATION 13.5 % (19.7-37.4); TOTAL IRON BINDING CAPACITY 416 UG/DL (250-450); TOTAL PROTEIN 7.7 GM/DL (6.4-8.2)
[2017-01-20 10:29] LABS: ALBUMIN 4.67 GM/DL (3.29-5.55); ALBUMIN % 60.6 % (55.8-66.1); GAMMA GLOBULIN % 11.2 % (11.1-18.8)
== END ==
LOC: M SFHCPLAZ 09:17
PROVIDERS: ATTEND Family Medicine
DX: D64.9 Anemia, unspecified (principal)
CPT/HCPCS: 36415; 82607; 82728; 83550; 84165; 85025; 85046; G0463

== ENCOUNTER → 2017-01-24 | Outpatient (CLI) | payer MEDICARE, MEDICAID ==
--- NOTE | 2017-01-24 23:26 | REP ---
Clinical: Nephrolithiasis. Comparison: 07/01/2014. Findings: Evaluation of the urinary check system demonstrates 12 mm nonobstructing left intrarenal calculus along with mild bilateral chronic perinephric stranding and small bilateral hypodensities suggesting cysts. No hydroureteronephrosis or obstructing ureteral calculi identified. The bladder is normal. Liver, spleen, pancreas, and bilateral adrenal glands are normal for noncontrast evaluation. Splenic calcifications compatible with prior granulomatous disease. The enteric system is without obstruction or acute inflammatory process. Pelvis demonstrates normal bladder and age appropriate prostate/seminal vesicles. No free air. No free fluid. No significant intraperitoneal or retroperitoneal adenopathy. Abdominal aorta without aneurysm. Musculoskeletal structures are intact. Impression: 12 mm nonobstructing left renal calculus along with mild chronic-appearing bilateral perinephric stranding and subcentimeter bilateral renal cysts. Signed by Reggie Patel MD 01/24/2017 11:18 P
== END ==
LOC: M RAD 09:27
PROVIDERS: ATTEND Family Medicine
DX: N28.1 Cyst of kidney, acquired (principal)

== ENCOUNTER 2017-01-28 07:31 | Outpatient (CLI) | payer MEDICARE, MEDICAID ==
[~2017-01-28 07:31] MED LIST changes: -ASPI1TAB PO; -CRES20TA PO; -EFFE150C PO; -FLOM5CAP PO; -IMIT50TA PO; -LACT10SO29 PO; -LIDO1OIN2 TOP; -LIDO5DIS41 TD; -METF-699 PO; -NAPR250T4 PO; -OMEG100011 PO; -THERTAB30 PO; -TIZA4CAP3 PO; -TRAZ50TA11 PO; -TYLE650T35 PO; -VOLT1GEL15 TD; -ZYRT10CA PO
[2017-01-28] MEDS ORDERED: ZOLEDRONIC ACID 5 MG in APPROPRIATE DILUENT 1 EA IV ONE (08:00)
[2017-02-11] MEDS ORDERED: THERTAB30 PO (16:24)
[2017-02-11] MEDS ORDERED: LACT10SO29 PO (16:24)
[2017-02-11] MEDS ORDERED: TRAZ50TA11 PO (16:24)
[2017-02-11] MEDS ORDERED: METF-699 PO (16:24)
[2017-02-11] MEDS ORDERED: VOLT1GEL15 TD (16:24)
[2017-02-11] MEDS ORDERED: ZYRT10CA PO (16:24)
[2017-02-11] MEDS ORDERED: LIDO1OIN2 TOP (16:24)
[2017-02-11] MEDS ORDERED: CRES20TA PO (16:24)
[2017-02-11] MEDS ORDERED: CHLO25TA PO (16:24)
[2017-02-11] MEDS ORDERED: ASPI1TAB PO (16:24)
[2017-02-11] MEDS ORDERED: EFFE150C PO (16:24)
[2017-03-14] MEDS ORDERED: IMIT50TA PO (16:58)
[2017-03-14] MEDS ORDERED: LOVA1CAP17 PO (16:58)
[2017-04-11] MEDS ORDERED: TIZA4CAP3 PO (15:45)
[2017-04-11] MEDS ORDERED: LIDO5DIS41 TD (15:45)
[2017-04-11] MEDS ORDERED: EFFE150C PO (15:45)
[2017-04-11] MEDS ORDERED: NAPR250T4 PO (15:45)
[2017-04-11] MEDS ORDERED: ADV250INH INH (15:45)
[2017-04-11] MEDS ORDERED: OMEG100011 PO (15:47)
== END 2017-01-28 08:20 | disposition home or self-care (01) ==
LOC: M INFU 07:31
PROVIDERS: ATTEND Family Medicine
DX: M85.9 Disorder of bone density and structure, unspecified (principal); Z88.1 Allergy status to other antibiotic agents; Z88.8 Allergy status to other drugs, medicaments and biological substances; Z88.0 Allergy status to penicillin; Z91.048 Other nonmedicinal substance allergy status; Z91.018 Allergy to other foods; Z79.82 Long term (current) use of aspirin; Z79.899 Other long term (current) drug therapy
CPT/HCPCS: 96365; J3489

== ENCOUNTER → 2017-02-02 | Outpatient (CLI) | payer MEDICARE, MEDICAID ==
[~2017-02-02] MED LIST changes: +ASPI1TAB PO; +CRES20TA PO; +EFFE150C PO; +FLOM5CAP PO; +IMIT50TA PO; +LACT10SO29 PO; +LIDO1OIN2 TOP; +LIDO5DIS41 TD; +METF-699 PO; +NAPR250T4 PO; +OMEG100011 PO; +THERTAB30 PO; +TIZA4CAP3 PO; +TRAZ50TA11 PO; +TYLE650T35 PO; +VOLT1GEL15 TD; +ZYRT10CA PO
--- NOTE | 2017-02-17 00:47 | ECWPNPC ---
PATIENT NAME: SHERON BACON : 1960 GENDER: MALE VISIT DATE: 02/02/2017 DISCHARGE DATE: 02/02/17 1617 VISIT LOCKED DATE TIME: PHYSICIAN: SHAKILA PEDERSEN PHYSICIAN PAGER NO: [phone] RESOURCE: SHAKILA PEDERSEN REASON FOR APPOINTMENT 1. LOW BACK PAIN HISTORY OF PRESENT ILLNESS HISTORY OF PRESENT ILLNESS: PAIN THE PATIENT DESCRIBES THE PAIN... 56 YEAR OLD MALE PATIENT WITH HISTORY OF CHRONIC LOW BACK PAIN. PATIENT DESCRIBES THE PAIN ACHING AND THROBBING WITH A PAIN SCORE OF 2/10. PATIENT RECEIVED A LUMBAR FACET BLOCK ON 01/07/17 AND REPORTS HAVING OVER 50% RELIEF FROM PAIN WITH INCREASED MOBILITY AND FUNCTIONALITY SINCE THE INJECTION. PATIENT IS CURRENTLY USING HYDROCODONE NEEDED AND SOME DAYS NOT USE THE MEDICATION AT ALL. PATIENT DENIES UNEXPLAINABLE WEIGHT LOSS, FEVER, CHILLS, NEW CHANGES ON HER URINARY OR BOWEL CONTROL. FALL RISK SCREENING: SCREENING :NO FALLS IN THE PAST YEAR CURRENT MEDICATIONS TAKING LOSARTAN POTASSIUM 50 MG TABLET 1 TABLET ORALLY TWICE A DAY TAKING CHLORTHALIDONE 25 MG TABLET 1 TABLET IN THE MORNING ORALLY ONCE A DAY TAKING DRISDOL 33426 UNIT CAPSULE 1 CAPSULE ORALLY EVERY OTHER WEEK TAKING CRESTOR 20 MG TABLET 1 TABLET ORALLY ONCE A DAY TAKING VITAMIN B-12 1000 MCG TABLET 1 TABLET ORALLY ONCE A DAY TAKING ASPIR-81 81 MG TABLET DELAYED RELEASE 1 TABLET ORALLY ONCE A DAY TAKING ADVAIR DISKUS 250-50 MCG/DOSE MISCELLANEOUS 1 INHALATION EVERY 12 HRS TAKING PROVENTIL HFA 108 (90 BASE) MCG/ACT AEROSOL SOLUTION 2 PUFFS NEEDED INHALATION EVERY 4 HRS PRN WHEEZE TAKING LIDODERM 5 % PATCH 1 PATCH TO BOTH HIPS EXTERNALLY ONCE A DAY ON 12 HOURS OFF 12 HOURS TAKING TENS UNIT ELECTRO PADS . . DIRECTED . NEEDED TAKING INDUSTRIAL BELT XL DX: 724.2 LUMBAR SUPPORT BELT DIRECTED . DAILY DURING WORK HOURS TAKING HYDROCODONE-ACETAMINOPHEN 5-325 MG TABLET 1 TABLET NEEDED ORALLY EVERY 12 HRS PRN PAIN, MDD 2 TAKING EPIPEN 2-OSEAS 0.3 MG/0.3ML (1:1000) DEVICE INJECTABLE INTRAMUSCULAR ONCE NEEDED TAKING ZYRTEC ALLERGY 10 MG TABLET 1 TABLET ORALLY ONCE A DAY TAKING FLONASE 50 MCG/ACT SUSPENSION 2 NASALLY EVERY MORNING TAKING RELPAX 40 MG TABLET 1 TABLET AT ONSET OF HEADACHE, MAY REPEAT AFTER 2 HOURS IF HEADACHE RETURNS ORALLY QD PRN HEADACHE TAKING RECLAST 5 MG/100ML SOLUTION DIRECTED INTRAVENOUS YEARLY, NOTES: NOT YET TAKING EFFEXOR XR 150 MG CAPSULE EXTENDED RELEASE 24 HOUR 2 CAPSULES WITH FOOD ORALLY DAILY, NOTES: 01-06-172099 TAKING TRIAMCINOLONE ACETONIDE 0.1 % CREAM 1 APPLICATION TO AFFECTED AREA EXTERNALLY TO FACE TWICE A DAY PRN ECZEMA, NOTES: 01-07-17799 TAKING MULTIVITAMINS OTC TABLET 1 TAB ORALLY DAILY, NOTES: 01-07-17799 TAKING TRAZODONE HCL 50 MG TABLET 2 TABLETS AT BEDTIME NEEDED ORALLY ONCE A DAY, NOTES: NONE RECENT TAKING LOSARTAN POTASSIUM 50 MG TABLET 1 TABLET ORALLY TWICE DAILY, NOTES: 01-07-17799 TAKING ZOFRAN 4 MG TABLET 1 TAB USUALLY 1-2X/W ORALLY ONE TO TWO TIMES A WEEK NEEDED, NOTES: COUPLE DAYS AGO TAKING SASHA KNEE BRACE HINGED - MISCELLANEOUS DIRECTED WHILE OOBED WALKING R KNEE _ DAILY TAKING BLOOD GLUCOSE MONITOR SYSTEM W/DEVICE KIT ONE TOUCH VERIO FLEX DX: E11.9 DAILY TAKING LANCETS - MISCELLANEOUS DX: E11.9 ONE TOUCH VERIO FLEX INTRADERMALLY DAILY TAKING BLOOD GLUCOSE TEST - STRIP DIRECTED INTRADERMALLY DX: E11.9 DAILY TAKING LACTULOSE 10 GM/15ML SOLUTION 30 ML ORALLY ONCE A DAY - STATES TAKES 15 GM TAKING VOLTAREN 1 % GEL DIRECTED TRANSDERMAL FOUR TIMES DAILY TAKING BLOOD GLUCOSE TEST STRIP 1 ONE TOUCH TEST STRIP 250.02 SUBCUTANEOUSLY DAILY TAKING LANCETS 1 LANCTES DEVICE DX:250.02 SUBCUTANEOUSLY DAILY TAKING METFORMIN HCL ER 500 MG TABLET EXTENDED RELEASE 24 HOUR 1 TABLET ORALLY TWICE DAILY TAKING LOVAZA 1 GM CAPSULE 2 CAPSULES ORALLY TWICE A DAY TAKING ZANAFLEX 4 MG TABLET 1 TABLET ORALLY EVERY 8 HOURS NEEDED FOR MUSCLE SPASTICITY MDD:3 PAST MEDICAL HISTORY LUMBAR DJD-DIFFUSE, 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, DIFFUSE L2/3 AND L5/S1 BULGES BY 07/2014 MRI CHRONIC KIDNEY DISEASE STAGE III HYPERLIPIDEMIA 2B OSTEOPOROSIS NONALCOHOLIC FATTY LIVER DISEASE-SEEN BY AUGUST 2010 CT, FS 2010 FS2 LEVEL OF 45/NEGATIVE W/U-09/2010-REINDL/SEEN 10/2010 LIVER BIOPSY-MILDLY 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 (STAGE 2-3/4)//10/2014 FS 2 17 ANEMIA SECONDARY TO IRON DEFICIENCY MIGRAINE HEADACHES, COMMON TYPE-DECEMBER 2010 NORMAL MRA OF THE BRAIN/01/2011 NORMAL CTA BRAIN HISTORY OF BILATERAL NEPHROLITHIASIS ASTHMA MILD PERSISTENT CONSTIPATION CHRONIC OBSTRUCTIVE SLEEP APNEA VITAMIN B12 DEFICIENCY MUSHROOM ANAPHYLAXIS DYSPEPSIA/GERD ALLERGIC RHINITIS CHRONIC LEUKOPENIA DIABETES MELLITUS TYPE 2 HISTORY OF SBO, FEBRUARY 2010-LADI HISTORY OF NEPHROLITHIASIS-SEPTEMBER 2008, 24H URINE REMARKABLE FOR MILDLY ELEVATED CALCIUM AND URIC ACID ERECTILE DYSFUNCTION HISTORY OF HYPERCALCEMIA WITH SUPPRESSED PTH-SEPTEMBER 2009 WHOLE-BODY BONE SCAN WITH FOCAL UPTAKE BILATERAL RIBS AND COSTOVERTEBRAL JUNCTION/SEPTEMBER 2009 NEGATIVE WHOLE-BODY PET/CT SCAN AND BILATERAL RIB AND CHEST X-RAY ADENOMATOUS POLYP BY COLONOSCOPY OCTOBER 2010-REINDL/10/2011 NORMAL COLONOSCOPY-REINDL R HIP OA-MILD C CAM DEFORMITY SL FEMORAL HEAD BY 09/2013 BILATERAL TROCHANTERIC BURSITIS-MILD BY 09/2013 XRAY 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 SISTER ACQUIRED, A NURSE 10/2016 ALLERGIES CECLOR: HIVES: ALLERGY ERYTHROMYCIN: HIVES: ALLERGY PCN: HIVES: ALLERGY REGLAN: HIVES: ALLERGY MUSHROOMS: ANAPHYLAXIS: ALLERGY WATERMELON: HIVES: ALLERGY REVIEW OF SYSTEMS REVIEWED BY: PROVIDER: SHAKILA PEDERSEN MD . CONSTITUTIONAL: ANY CHANGE IN YOUR MEDICAL CONDITION? NO . CHILLS NO . FEVER NO . INFECTION: DO YOU HAVE NEW INFECTIONS? NO . DO YOU HAVE HISTORY OF MRSA? NO . MUSCULOSKELETAL: ANY NEW PATTERNS OF PAIN OR NUMBNESS? NO . GASTROENTEROLOGY: ANY NEW CHANGE IN BOWEL CONTROL? NO . GENITOURINARY: ANY NEW CHANGE IN BLADDER CONTROL? NO . IS THERE A CHANCE YOU COULD BE ? NO . HEMATOLOGY/LYMPH: DO YOU TAKE ANY BLOOD THINNERS? (FOR EXAMPLE- COUMADIN, PLAVIX, AGGRENOX, PLATEL, PRADAXA, OR XARELTO) NO . WHEN WAS YOUR LAST DOSE? DATE: TIME: . NEUROLOGY: HAVE YOU FALLEN IN THE PAST 6 MONTHS? NO . ANY NEW EXTREMITY NUMBNESS OR WEAKNESS? NO . CARDIOLOGY: DO YOU HAVE A PACEMAKER OR DEFIBRILLATOR? NO . RESPIRATORY: HAVE YOU BEEN SICK IN THE PAST WEEK? NO . FEVER NO . FLU LIKE SYMPTOMS? NO . COUGH NO . INTEGUMENTARY: DO YOU HAVE ANY RASHES OR OPEN SORES? NO . ALLERGIC/IMMUNO: ARE YOU ALLERGIC TO SHELLFISH OR IV DYE? NO . ANY NEW ALLERGIES? NO . PSYCHIATRIC: DO YOU HAVE THOUGHTS OF HURTING YOURSELF OR SOMEONE ELSE? NO . ARE YOU ABUSED, NEGLECTED, OR IN AN UNSAFE ENVIRONMENT? NO . ENDOCRINOLOGY: ARE YOU DIABETIC? YES . OTHER: DO YOU NEED ANY PRESCRIPTIONS? NO . IF YES, PLEASE LIST: ____ . ANY NEW PROBLEMS WITH YOUR MEDICATIONS? NO . WHEN DID YOU LAST EAT? ____ . WHEN DID YOU LAST DRINK? ____ . WHAT DID YOU LAST DRINK? ____ . NAME OF PERSON DRIVING YOU HOME? ____ . DO YOU HAVE ANY OTHER QUESTIONS OR CONCERNS NO . VITAL SIGNS WT 238.0 LBS, HT 74 IN, BMI 30.55 INDEX, BP 142/81 MM HG, HR 104 /MIN, RR 16 /MIN, TEMP 96.0 F, OXYGEN SAT % 98%, NA INITIALS TL 1514, REVIEWED BY: KG. EXAMINATION : PATIENT IS ALERT O X 3 AND COOPERATIVE. TENDERNESS IN THE CERVICAL AREA. BANDS OF TISSUE, RESTRICTION OF MOVEMENT, AND PRESENCE OF TRIGGER POINTS IN THE THORACIC AND LOWER BACK. CT DONE ON 08/11/15 OF THE CERVICAL SPINE SHOWS OSTEOARTHRITIS AND BONE CYST IN RIGHT LAMINA OF C4. MRI OF THE LUMBAR SPINE DONE ON 08/09/14 SHOWS DISC BULGE AT L2-L3, L3-L4, L4-L5, AND L5-S1 WITH CANAL STENOSIS, AND FACET HYPERTROPHY. ASSESSMENTS MYALGIA - M79.1 (PRIMARY) SPONDYLOSIS WITHOUT MYELOPATHY OR RADICULOPATHY, LUMBAR REGION - M47.816 SPONDYLOSIS WITHOUT MYELOPATHY OR RADICULOPATHY, LUMBOSACRAL REGION - M47.817 TREATMENT MYALGIA NOTES: WE DISCUSSED SEVERAL ISSUES WITH MR. BACON'S PAIN MANAGEMENT CASE. AT THIS TIME THE PATIENT WILL CONTINUE WITH THE SAME MEDICATION PRESCRIBED BY HIS PRIMARY DOCTOR. PATIENT REPORTS HIS LOWER BACK INCREASING IN PAIN. AT THIS TIME THE PATIENT IS STILL DOING VERY WELL FROM THE LUMBAR FACET ON 01/07/17 AND STATES THAT HE HAS HAD OVER 50% RELIEF FROM THE PAIN AND HAS NOT USED ANY PAIN MEDICATION SINCE. PATIENT WILL RETURN TO THE CLINIC IN 2 MONTHS BUT WAS ADVISED TO CALL IF THE PAINS SIGNIFICANTLY INCREASES. INSTRUCTIONS WERE GIVEN, QUESTIONS WERE ANSWERED, PATIENT REPORTS UNDERSTANDING AND AGREES WITH THE PLAN. ILING, DOCUMENTED THE ABOVE INFORMATION ACTING A SCRIBE FOR DR. PEDERSEN. I HAVE REVIEWED THE ABOVE DOCUMENT, WRITTEN BY LING DUNNE AND I VERIFY THAT IT IS ACCURATE. PROCEDURE CODES FA211 ESTABILISHED PATIENT [facility] FACILITY CHARGE G8427 DOC MEDS VERIFIED W/PT OR RE G8730 PAIN ASSESS POS TOOL F/U PLAN DOC DISPOSITION & COMMUNICATION ELECTRONICALLY SIGNED BY SHAKILA PEDERSEN MD ON 02/14/2017 AT 01:17 PM EDT DISCLAIMER : THIS IS A VISIT SUMMARY EXTRACTED FROM THE [employer] CHART. IT IS NOT A COPY OF THE [employer] PROGRESS NOTE. HERVED
== END ==
LOC: M PAIN 15:00
PROVIDERS: ATTEND Anesthesiology
DX: M79.1 Myalgia (principal); M47.816 Spondylosis without myelopathy or radiculopathy, lumbar region; M47.817 Spondylosis without myelopathy or radiculopathy, lumbosacral region; G89.29 Other chronic pain; M54.5 Low back pain; I12.9 Hypertensive chronic kidney disease with stage 1 through stage 4 chronic kidney disease, or unspecified chronic kidney disease; E11.9 Type 2 diabetes mellitus without complications; E78.5 Hyperlipidemia, unspecified; M81.0 Age-related osteoporosis without current pathological fracture; N18.2 Chronic kidney disease, stage 2 (mild); J45.30 Mild persistent asthma, uncomplicated; Z79.82 Long term (current) use of aspirin; Z79.891 Long term (current) use of opiate analgesic; Z79.84 Long term (current) use of oral hypoglycemic drugs; Z88.0 Allergy status to penicillin; Z88.8 Allergy status to other drugs, medicaments and biological substances; Z91.018 Allergy to other foods

== ENCOUNTER → 2017-02-07 | Outpatient (CLI) | payer MEDICARE, MEDICAID ==
[2017-02-07 19:25] LABS: ANION GAP 5 MEQ/L (8-16); BLOOD UREA NITROGEN 17 MG/DL (7-18); CALCIUM LEVEL 9.5 MG/DL (8.5-10.1); CARBON DIOXIDE LEVEL 24 MEQ/L (21-32); CHLORIDE LEVEL 109 MEQ/L (98-107); CREATININE FOR GFR 1.09 MG/DL (0.70-1.30); GLOMERULAR FILTRATION RATE > 60.0 (>56); GLUCOSE, FASTING 112 MG/DL (70-105); POTASSIUM SERUM 4.5 MEQ/L (3.5-5.1); SODIUM LEVEL 138 MEQ/L (136-145)
[2017-02-07 19:28] LABS: MICROSCOPIC INDICATED? MAN YES (NO)
[2017-02-07 20:00] LABS: MEAN CORPUSCULAR HEMOGLOBIN 29.8 pg (27.0-33.0); MEAN CORPUSCULAR HGB CONC 33.5 g/dl (32.0-36.5); MEAN CORPUSCULAR VOLUME 88.7 fl (80.0-96.0); WHITE BLOOD COUNT 7.1 K/mm3 (4.0-10.0)
[2017-02-07 20:47] LABS: RBC, URINE NONE SEEN /hpf (0-3); SQUAMOUS EPITHELIAL CELL URINE SMALL AMOUNT /hpf (SMALL AMT)
[2017-02-07 20:49] LABS: BACTERIA, URINE NONE SEEN; MICROSCOPIC EXAM PERFORMED
== END ==
LOC: M SMT 14:55
PROVIDERS: ATTEND Nurse Practitioner Women's Health
DX: Z01.818 Encounter for other preprocedural examination (principal); N20.0 Calculus of kidney
CPT/HCPCS: 36415; 80048; 81000; 85027; 87086; G0463

== ENCOUNTER 2017-02-17 06:03 | Day surgery (SDC) | payer MEDICARE, MEDICAID ==
[~2017-02-17] VITALS: Ht 188 cm; Wt 106.1 kg
[~2017-02-17 06:03] MED LIST changes: -FLOM5CAP PO; -IMIT50TA PO; -LIDO5DIS41 TD; -NAPR250T4 PO; -OMEG100011 PO; -TIZA4CAP3 PO; -TYLE650T35 PO
[2017-02-17] MEDS ORDERED: LR 1,000 ML IV SCH (06:30)
[2017-02-17] MEDS ORDERED: CLINDAMYCIN 900 MG/50 ML PREMIX BAG As Ordered ONE (06:52)
[2017-02-17] MEDS ORDERED: CLINDAMYCIN 900 MG in APPROPRIATE DILUENT 1 EA IV ONE (07:00)
--- NOTE | 2017-02-17 07:34 | REP ---
Clinical: Nephrolithiasis. Correlation: CT dated 01/24/2017. Findings: Single supine view of the abdomen and pelvis demonstrates nonspecific bowel gas pattern. Left renal calculi are again identified and essentially unchanged when correlated with recent CT. A 2 mm calcification in the left yadira pelvis correlates with phlebolith on CT imaging. Impression: Limited evaluation. Left intrarenal calcifications essentially unchanged compared to prior CT. Signed by Reggie Patel MD 02/17/2017 07:25 A
[2017-02-17] MEDS ORDERED: PROPOFOL 200 MG/20 ML VIAL As Ordered ONE (07:44)
[2017-02-17] MEDS ORDERED: ONDANSETRON 4MG/2ML VIAL (J2405) As Ordered ONE (07:44)
[2017-02-17] MEDS ORDERED: fentaNYL 100 MCG/2 ML INJECTION (J3010) As Ordered ONE (07:44)
[2017-02-17] MEDS ORDERED: LIDOCAINE 2% INJ 100 MG/5 ML SDV (FOR ANES.) As Ordered ONE (07:44)
[2017-02-17] MEDS ORDERED: MIDAZOLAM INJ 2 MG/2 ML VIAL (J2250) As Ordered ONE (07:44)
[2017-02-17] MEDS ORDERED: FLOM5CAP PO (07:48)
[2017-02-17 09:00] VITALS: BP 136/79
--- NOTE | 2017-02-17 18:18 | ECGEPIP ---
Stationary ECG Study [facility] Test Date: 2017-02-17 Pat Name: SHERON BACON Department: Room: - Gender: M Surgery Nurse: : 1960 Requested By: EMERSON Jean Order Number: [id number] Reading MD: Conrado Hyde Measurements Intervals Bedias Rate: 71 P: -11 GA: 169 QRS: -40 QRSD: 129 T: 42 QT: 374 QTc: 408 Interpretive Statements Normal sinus rhythm LA conduction disturbance? Left axis deviation, incomplete LBBB and voltage criteria for LVH by Shaji. Increased QRS duration from last tracing 08/11/15. Electronically Signed On 02-17-2017 18:18:12 EDT by Conrado Hyde
--- NOTE | 2017-02-18 10:26 | RO ---
DATE OF PROCEDURE: 02/17/2017 PREPROCEDURE DIAGNOSIS: Left kidney stone. POSTPROCEDURE DIAGNOSIS: Left kidney stone. FINDINGS: 1.2 cm left kidney stone in lower pole. PROCEDURE: Left extracorporeal shock wave lithotripsy. SURGEON: Pepe Harrell MD SHUTDOWN COORDINATOR: None. ANESTHESIA: MAC. COMPLICATIONS: None. ESTIMATED BLOOD LOSS: N/A. HISTORY OF THE PRESENT ILLNESS: This is a 56-year-old male patient that has a 1.2 cm left lower pole kidney stone. The patient has consented for a left extracorporeal shock wave lithotripsy. DESCRIPTION OF OPERATION: With the patient under MAC anesthesia in supine position after finding the stone with x-ray and ultrasound, we gave a total of 2500 impulses at a power of 1 to 20. The first 100 shockwave lithotripsies were done at a level of 1 to 5, the following 100 shockwave lithotripsies were at level of 5 to 10, and the following 2300 shockwave lithotripsies were done at a level of 10 to 20. The patient tolerated well the procedure. There were no complications. PLAN: The patient will go home with Vicodin that he already has at his house and Flomax once a day for 30 days. Followup at [facility] in about 2 to 3 weeks. At that moment in time, we will decide if he needs a second session or not of shockwave lithotripsy.
[2017-03-14] MEDS ORDERED: LOVA1CAP17 PO (16:58)
[2017-03-14] MEDS ORDERED: IMIT50TA PO (16:58)
[2017-04-11] MEDS ORDERED: EFFE150C PO (15:45)
[2017-04-11] MEDS ORDERED: NAPR250T4 PO (15:45)
[2017-04-11] MEDS ORDERED: TIZA4CAP3 PO (15:45)
[2017-04-11] MEDS ORDERED: ADV250INH INH (15:45)
[2017-04-11] MEDS ORDERED: LIDO5DIS41 TD (15:45)
[2017-04-11] MEDS ORDERED: OMEG100011 PO (15:47)
== END 2017-02-17 09:15 | disposition home or self-care (01) ==
LOC: M SDC 06:03
PROVIDERS: ATTEND Urology
DX: N20.0 Calculus of kidney (principal); E11.22 Type 2 diabetes mellitus with diabetic chronic kidney disease; I25.10 Atherosclerotic heart disease of native coronary artery without angina pectoris; I12.9 Hypertensive chronic kidney disease with stage 1 through stage 4 chronic kidney disease, or unspecified chronic kidney disease; N18.3 Chronic kidney disease, stage 3 (moderate); J45.909 Unspecified asthma, uncomplicated; F32.9 Major depressive disorder, single episode, unspecified; E78.00 Pure hypercholesterolemia, unspecified; G47.33 Obstructive sleep apnea (adult) (pediatric); M54.9 Dorsalgia, unspecified; K76.0 Fatty (change of) liver, not elsewhere classified; D50.9 Iron deficiency anemia, unspecified; D72.819 Decreased white blood cell count, unspecified; Z86.14 Personal history of Methicillin resistant Staphylococcus aureus infection; Z86.11 Personal history of tuberculosis; M19.90 Unspecified osteoarthritis, unspecified site; Z79.899 Other long term (current) drug therapy; Z79.84 Long term (current) use of oral hypoglycemic drugs; Z79.51 Long term (current) use of inhaled steroids; Z79.82 Long term (current) use of aspirin; Z91.018 Allergy to other foods; Z88.1 Allergy status to other antibiotic agents; Z88.8 Allergy status to other drugs, medicaments and biological substances; Z88.0 Allergy status to penicillin; Z91.048 Other nonmedicinal substance allergy status
CPT/HCPCS: 50590; 74000; 93005; J2250; J2405; J3010

== ENCOUNTER → 2017-03-11 | Outpatient (CLI) | payer MEDICARE ==
[~2017-03-11] MED LIST changes: +FLOM5CAP PO; +IMIT50TA PO; +LIDO5DIS41 TD; +NAPR250T4 PO; +OMEG100011 PO; +TIZA4CAP3 PO; +TYLE650T35 PO
--- NOTE | 2017-03-11 10:55 | REP ---
KUB: Two views. HISTORY: Kidney stone. COMPARISON STUDY: February 17, 2017. Comparison CT study January 24, 2017. FINDINGS: There is a surgical clip in the right lower quadrant and there are skin richard in the left inguinal region. There is more bowel gas overlying the kidneys today. However, there appears to be opaque calcific material projecting at the level of the lower pole and mid pole of the left kidney. This appears smaller suggesting interval treatment. The two calcific opacities measure 4 and 6 mm in greatest diameter in the mid and lower pole respectively. There is a 4 mm calcification over the left psoas muscle at the level of the transverse process of L4 which may be a left ureteral stone. This is a new finding. IMPRESSION: There are two areas of intrarenal calcification apparent in the left kidney. A possible left mid ureteral stone is seen. Signed by Duane Camargo MD 03/11/2017 11:50 A
== END ==
LOC: M SMT 08:47
PROVIDERS: ATTEND Nurse Practitioner Women's Health
DX: N20.0 Calculus of kidney (principal)

== ENCOUNTER → 2017-03-14 | Outpatient (REF) | payer MEDICARE, MEDICAID ==
[2017-03-14 18:58] LABS: INR 1.01
[2017-03-14 18:59] LABS: ANION GAP 11 MEQ/L (8-16); BLOOD UREA NITROGEN 14 MG/DL (7-18); CALCIUM LEVEL 9.6 MG/DL (8.5-10.1); CARBON DIOXIDE LEVEL 25 MEQ/L (21-32); CHLORIDE LEVEL 107 MEQ/L (98-107); GLOMERULAR FILTRATION RATE > 60.0 (>56); GLUCOSE, FASTING 191 MG/DL (70-105); POTASSIUM SERUM 4.9 MEQ/L (3.5-5.1); SODIUM LEVEL 143 MEQ/L (136-145)
[2017-03-14 19:42] LABS: MEAN CORPUSCULAR HGB CONC 33.8 g/dl (32.0-36.5); MEAN CORPUSCULAR VOLUME 88.9 fl (80.0-96.0); RED CELL DISTRIBUTION WIDTH 14.3 % (11.5-14.5); WHITE BLOOD COUNT 5.7 K/mm3 (4.0-10.0)
== END ==
LOC: M LAB REF 17:17
PROVIDERS: ATTEND Nurse Practitioner Women's Health
DX: Z01.818 Encounter for other preprocedural examination (principal); N20.0 Calculus of kidney; Z79.01 Long term (current) use of anticoagulants

== ENCOUNTER 2017-03-17 08:49 | Day surgery (SDC) | payer MEDICARE, MEDICAID ==
[~2017-03-17] VITALS: Ht 188 cm; Wt 108.0 kg
[~2017-03-17 08:49] MED LIST changes: -LIDO5DIS41 TD; -NAPR250T4 PO; -OMEG100011 PO; -TIZA4CAP3 PO; -TYLE650T35 PO
[2017-03-17] MEDS ORDERED: CIPROFLOXACIN 400 MG in APPROPRIATE DILUENT 1 EA IV ONE (09:00)
[2017-03-17] MEDS ORDERED: LR 1,000 ML IV SCH ×2 (09:00→12:15)
[2017-03-17] MEDS ORDERED: LIDOCAINE 2% INJ 100 MG/5 ML SDV (FOR ANES.) As Ordered ONE (10:05)
[2017-03-17] MEDS ORDERED: PROPOFOL 200 MG/20 ML VIAL As Ordered ONE (10:05)
[2017-03-17] MEDS ORDERED: MIDAZOLAM INJ 2 MG/2 ML VIAL (J2250) As Ordered ONE (10:06)
[2017-03-17] MEDS ORDERED: fentaNYL 100 MCG/2 ML INJECTION (J3010) As Ordered ONE (10:06)
[2017-03-17] MEDS ORDERED: FLOM5CAP PO (10:22)
[2017-03-17] MEDS ORDERED: TYLE650T35 PO (10:22)
[2017-03-17] MEDS ORDERED: KETAMINE HCL 200 MG/20 ML VIAL As Ordered ONE (11:09)
[2017-03-17] MEDS ORDERED: ONDANSETRON 4MG/2ML VIAL (J2405) As Ordered ONE (11:22)
--- NOTE | 2017-03-17 11:50 | RO ---
DATE OF PROCEDURE: 03/17/2017 PREPROCEDURE DIAGNOSIS: Left renal stone. POSTPROCEDURE DIAGNOSIS: Left ureteral stone of about 7 mm in diameter. SURGERY PERFORMED: Left extracorporeal shock wave lithotripsy (ESWL) of a left ureteral stone, 3000 shockwaves lithotripsy. SURGEON: Dr. Pepe Harrell BOTTOM FINISHER: None. ANESTHESIA: MAC. COMPLICATIONS: None. ESTIMATED BLOOD LOSS: N/A. HISTORY OF THE PRESENT ILLNESS: A 56-year-old male patient that has a 7 mm stone in the proximal ureter and has a left hydronephrosis. The patient has left flank pain. For this reason, he has consented for a left extracorporeal shock wave lithotripsy of a left ureteral stone. DESCRIPTION OF OPERATION: With the patient under general anesthesia in supine position after finding the stone with x-ray, we gave a total of 3000 impulses at a power of 1 to 20. The first 100 shockwave lithotripsies were at a level of 1 to 5, the following shockwave lithotripsies were done at a level of 6 t0 10, and the following 100 shockwave lithotripsies were done at a level of 11 to 15, the final 2700 shockwave lithotripsies were done at a level of 16 to 20. The patient tolerated well the procedure. He will go home today with Flomax and pain medication. Followup at [facility] in about 3 weeks.
[2017-03-17] MEDS ORDERED: NORCO, ANEXSIA 5/325MG TABLET (HYDROcodone/ACETAMINOPHEN) PO PRN (12:15)
[2017-03-17] MEDS ORDERED: ONDANSETRON 4MG/2ML VIAL (J2405) IV PRN (12:15)
[2017-03-17 12:45] VITALS: BP 146/76
--- NOTE | 2017-03-17 15:03 | REP ---
KUB: Single view. HISTORY: Left renal stones. COMPARISON STUDY: March 11, 2017. FINDINGS: There is no longer evidence of intrarenal calcific material. There are linearly aligned calcifications overlying the transverse process of L4 on the left at the level of the psoas. This may be a left ureteral calculi. There are skin richard in the left groin. A clip is noted on the right. IMPRESSION: Question linearly aligned calcifications in the left mid ureter. No upper tract calculi seen. Signed by Duane Camargo MD 03/18/2017 10:03 A
[2017-04-11] MEDS ORDERED: ADV250INH INH (15:45)
[2017-04-11] MEDS ORDERED: EFFE150C PO (15:45)
[2017-04-11] MEDS ORDERED: LIDO5DIS41 TD (15:45)
[2017-04-11] MEDS ORDERED: TIZA4CAP3 PO (15:45)
[2017-04-11] MEDS ORDERED: NAPR250T4 PO (15:45)
[2017-04-11] MEDS ORDERED: OMEG100011 PO (15:47)
== END 2017-03-17 12:52 | disposition home or self-care (01) ==
LOC: M SDC 08:49
PROVIDERS: ATTEND Urology
DX: N20.1 Calculus of ureter (principal); N13.30 Unspecified hydronephrosis; E11.22 Type 2 diabetes mellitus with diabetic chronic kidney disease; I25.10 Atherosclerotic heart disease of native coronary artery without angina pectoris; I12.9 Hypertensive chronic kidney disease with stage 1 through stage 4 chronic kidney disease, or unspecified chronic kidney disease; N18.3 Chronic kidney disease, stage 3 (moderate); J45.30 Mild persistent asthma, uncomplicated; F32.9 Major depressive disorder, single episode, unspecified; K59.04 Chronic idiopathic constipation; E53.8 Deficiency of other specified B group vitamins; K21.9 Gastro-esophageal reflux disease without esophagitis; E78.5 Hyperlipidemia, unspecified; M81.0 Age-related osteoporosis without current pathological fracture; G47.33 Obstructive sleep apnea (adult) (pediatric); M51.36 Other intervertebral disc degeneration, lumbar region; M51.27 Other intervertebral disc displacement, lumbosacral region; N52.9 Male erectile dysfunction, unspecified; K76.0 Fatty (change of) liver, not elsewhere classified; D50.9 Iron deficiency anemia, unspecified; D72.819 Decreased white blood cell count, unspecified; Z86.14 Personal history of Methicillin resistant Staphylococcus aureus infection; Z86.11 Personal history of tuberculosis; M19.90 Unspecified osteoarthritis, unspecified site; Z79.899 Other long term (current) drug therapy; Z79.84 Long term (current) use of oral hypoglycemic drugs; Z79.51 Long term (current) use of inhaled steroids; Z79.82 Long term (current) use of aspirin; Z91.018 Allergy to other foods; Z88.1 Allergy status to other antibiotic agents; Z88.8 Allergy status to other drugs, medicaments and biological substances; Z88.0 Allergy status to penicillin; Z91.048 Other nonmedicinal substance allergy status
CPT/HCPCS: 50590; 74000; J0744; J2250; J2405; J3010

== ENCOUNTER → 2017-04-08 | Outpatient (CLI) | payer MEDICARE, MEDICAID ==
[~2017-04-08] MED LIST changes: +LIDO5DIS41 TD; +NAPR250T4 PO; +OMEG100011 PO; +TIZA4CAP3 PO; +TYLE650T35 PO
--- NOTE | 2017-05-02 00:14 | ECWPNPC ---
PATIENT NAME: SHERON BACON : 1960 GENDER: MALE VISIT DATE: 04/08/2017 DISCHARGE DATE: 04/08/17 1619 VISIT LOCKED DATE TIME: PHYSICIAN: MERE ZURITA PHYSICIAN PAGER NO: [phone] RESOURCE: MERE ZURITA REASON FOR APPOINTMENT 1. LOW BACK HISTORY OF PRESENT ILLNESS HISTORY OF PRESENT ILLNESS: HERE FOR F/U OF CHRONIC LOW BACK PAIN WITH BILATERAL LEG PAIN L>R.RATING PAIN VAS 3/10.DESCRIBES PAIN SHARP,ACHING AND STABBING PAIN.PAIN IS AGGREVATED WITH INCRESED ACTIVITY AND IMPROVES WHEN HE LAYS ON HIS SIDE. PAIN THE PATIENT DESCRIBES THE PAIN... FALL RISK SCREENING: SCREENING :NO FALLS IN THE PAST YEAR CURRENT MEDICATIONS TAKING DRISDOL 11210 UNIT CAPSULE 1 CAPSULE ORALLY EVERY OTHER WEEK TAKING CRESTOR 20 MG TABLET 1 TABLET ORALLY ONCE A DAY TAKING VITAMIN B-12 1000 MCG TABLET 1 TABLET ORALLY ONCE A DAY TAKING ASPIR-81 81 MG TABLET DELAYED RELEASE 1 TABLET ORALLY ONCE A DAY TAKING ADVAIR DISKUS 250-50 MCG/DOSE MISCELLANEOUS 1 INHALATION EVERY 12 HRS TAKING PROVENTIL HFA 108 (90 BASE) MCG/ACT AEROSOL SOLUTION 2 PUFFS NEEDED INHALATION EVERY 4 HRS PRN WHEEZE TAKING LIDODERM 5 % PATCH 1 PATCH TO BOTH HIPS EXTERNALLY ONCE A DAY ON 12 HOURS OFF 12 HOURS TAKING TENS UNIT ELECTRO PADS . . DIRECTED . NEEDED TAKING INDUSTRIAL BELT XL DX: 724.2 LUMBAR SUPPORT BELT DIRECTED . DAILY DURING WORK HOURS TAKING HYDROCODONE-ACETAMINOPHEN 5-325 MG TABLET 1 TABLET NEEDED ORALLY EVERY 12 HRS PRN PAIN, MDD 2 TAKING EPIPEN 2-OSEAS 0.3 MG/0.3ML (1:1000) DEVICE INJECTABLE INTRAMUSCULAR ONCE NEEDED TAKING ZYRTEC ALLERGY 10 MG TABLET 1 TABLET ORALLY ONCE A DAY TAKING FLONASE 50 MCG/ACT SUSPENSION 2 NASALLY EVERY MORNING TAKING RELPAX 40 MG TABLET 1 TABLET AT ONSET OF HEADACHE, MAY REPEAT AFTER 2 HOURS IF HEADACHE RETURNS ORALLY QD PRN HEADACHE TAKING RECLAST 5 MG/100ML SOLUTION DIRECTED INTRAVENOUS YEARLY, NOTES: NOT YET TAKING EFFEXOR XR 150 MG CAPSULE EXTENDED RELEASE 24 HOUR 2 CAPSULES WITH FOOD ORALLY DAILY, NOTES: 01-06-172099 TAKING TRIAMCINOLONE ACETONIDE 0.1 % CREAM 1 APPLICATION TO AFFECTED AREA EXTERNALLY TO FACE TWICE A DAY PRN ECZEMA, NOTES: 01-07-17 0800 TAKING MULTIVITAMINS OTC TABLET 1 TAB ORALLY DAILY, NOTES: 01-07-17 08 TAKING TRAZODONE HCL 50 MG TABLET 2 TABLETS AT BEDTIME NEEDED ORALLY ONCE A DAY, NOTES: NONE RECENT TAKING SASHA KNEE BRACE HINGED - MISCELLANEOUS DIRECTED WHILE OOBED WALKING R KNEE _ DAILY TAKING BLOOD GLUCOSE MONITOR SYSTEM W/DEVICE KIT ONE TOUCH VERIO FLEX DX: E11.9 DAILY TAKING LANCETS - MISCELLANEOUS DX: E11.9 ONE TOUCH VERIO FLEX INTRADERMALLY DAILY TAKING BLOOD GLUCOSE TEST - STRIP DIRECTED INTRADERMALLY DX: E11.9 DAILY TAKING LACTULOSE 10 GM/15ML SOLUTION 30 ML ORALLY ONCE A DAY - STATES TAKES 15 GM TAKING VOLTAREN 1 % GEL DIRECTED TRANSDERMAL FOUR TIMES DAILY TAKING BLOOD GLUCOSE TEST STRIP 1 ONE TOUCH TEST STRIP 250.02 SUBCUTANEOUSLY DAILY TAKING LANCETS 1 LANCTES DEVICE DX:250.02 SUBCUTANEOUSLY DAILY TAKING METFORMIN HCL ER 500 MG TABLET EXTENDED RELEASE 24 HOUR 1 TABLET ORALLY TWICE DAILY TAKING LOVAZA 1 GM CAPSULE 2 CAPSULES ORALLY TWICE A DAY TAKING ZANAFLEX 4 MG TABLET 1 TABLET ORALLY EVERY 8 HOURS NEEDED FOR MUSCLE SPASTICITY MDD:3 TAKING LOSARTAN POTASSIUM 50 MG TABLET 1 TABLET ORALLY TWICE A DAY TAKING ZOFRAN 4 MG TABLET 1 TAB USUALLY 1-2X/W ORALLY ONE TO TWO TIMES A WEEK NEEDED TAKING SUMATRIPTAN SUCCINATE 50 MG TABLET 1 TABLET NEEDED ORALLY TWICE A DAY, PRN MIGRAINE-MAY TAKE SECOND DOSE 2H APART TAKING DICLOFENAC SODIUM 1 % GEL APPLY TO AFFECTED AREA(S) FOUR TIMES A DAY DIRECTED NOT-TAKING CHLORTHALIDONE 25 MG TABLET 1 TABLET IN THE MORNING ORALLY ONCE A DAY MEDICATION LIST REVIEWED AND RECONCILED WITH THE PATIENT PAST MEDICAL HISTORY LUMBAR DJD-DIFFUSE, 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, DIFFUSE L2/3 AND L5/S1 BULGES BY 07/2014 MRI CHRONIC KIDNEY DISEASE STAGE III HYPERLIPIDEMIA 2B OSTEOPOROSIS NONALCOHOLIC FATTY LIVER DISEASE-SEEN BY AUGUST 2010 CT, FS 2010 FS2 LEVEL OF 45/NEGATIVE W/U-09/2010-REINDL/SEEN 10/2010 LIVER BIOPSY-MILDLY 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 (STAGE 2-3/4)/ FS 2 17 ANEMIA SECONDARY TO IRON DEFICIENCY MIGRAINE HEADACHES, COMMON TYPE-DECEMBER 2010 NORMAL MRA OF THE BRAIN/01/2011 NORMAL CTA BRAIN HISTORY OF BILATERAL NEPHROLITHIASIS ASTHMA MILD PERSISTENT CONSTIPATION CHRONIC OBSTRUCTIVE SLEEP APNEA VITAMIN B12 DEFICIENCY MUSHROOM ANAPHYLAXIS DYSPEPSIA/GERD ALLERGIC RHINITIS CHRONIC LEUKOPENIA DIABETES MELLITUS TYPE 2 HISTORY OF SBO, FEBRUARY 2010-LADI HISTORY OF NEPHROLITHIASIS-SEPTEMBER 2008, 24H URINE REMARKABLE FOR MILDLY ELEVATED CALCIUM AND URIC ACID ERECTILE DYSFUNCTION HISTORY OF HYPERCALCEMIA WITH SUPPRESSED PTH-SEPTEMBER 2009 WHOLE-BODY BONE SCAN WITH FOCAL UPTAKE BILATERAL RIBS AND COSTOVERTEBRAL JUNCTION/SEPTEMBER 2009 NEGATIVE WHOLE-BODY PET/CT SCAN AND BILATERAL RIB AND CHEST X-RAY ADENOMATOUS POLYP BY COLONOSCOPY OCTOBER 2010-REINDL/10/2011 NORMAL COLONOSCOPY-REINDL R HIP OA-MILD C CAM DEFORMITY SL FEMORAL HEAD BY 09/2013 BILATERAL TROCHANTERIC BURSITIS-MILD BY 09/2013 XRAY 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 SISTER ACQUIRED, A NURSE 10/2016 ALLERGIES CECLOR: HIVES: ALLERGY ERYTHROMYCIN: HIVES: ALLERGY PCN: HIVES: ALLERGY REGLAN: HIVES: ALLERGY MUSHROOMS: ANAPHYLAXIS: ALLERGY WATERMELON: HIVES: ALLERGY REVIEW OF SYSTEMS REVIEWED BY: PROVIDER: MERE LIU . CONSTITUTIONAL: ANY CHANGE IN YOUR MEDICAL CONDITION? GOT RID OF KIDNEY STONES . CHILLS NO . FEVER NO . INFECTION: DO YOU HAVE NEW INFECTIONS? NO . DO YOU HAVE HISTORY OF MRSA? NO . MUSCULOSKELETAL: ANY NEW PATTERNS OF PAIN OR NUMBNESS? NO . GASTROENTEROLOGY: ANY NEW CHANGE IN BOWEL CONTROL? NO . GENITOURINARY: ANY NEW CHANGE IN BLADDER CONTROL? NO . IS THERE A CHANCE YOU COULD BE ? NO . HEMATOLOGY/LYMPH: DO YOU TAKE ANY BLOOD THINNERS? (FOR EXAMPLE- COUMADIN, PLAVIX, AGGRENOX, PLATEL, PRADAXA, OR XARELTO) NO . WHEN WAS YOUR LAST DOSE? DATE: TIME: . NEUROLOGY: HAVE YOU FALLEN IN THE PAST 6 MONTHS? NO . ANY NEW EXTREMITY NUMBNESS OR WEAKNESS? NO . CARDIOLOGY: DO YOU HAVE A PACEMAKER OR DEFIBRILLATOR? NO . RESPIRATORY: HAVE YOU BEEN SICK IN THE PAST WEEK? NO . FEVER NO . FLU LIKE SYMPTOMS? NO . COUGH NO . INTEGUMENTARY: DO YOU HAVE ANY RASHES OR OPEN SORES? NO . ALLERGIC/IMMUNO: ARE YOU ALLERGIC TO SHELLFISH OR IV DYE? NO . ANY NEW ALLERGIES? NO . PSYCHIATRIC: DO YOU HAVE THOUGHTS OF HURTING YOURSELF OR SOMEONE ELSE? NO . ARE YOU ABUSED, NEGLECTED, OR IN AN UNSAFE ENVIRONMENT? NO . ENDOCRINOLOGY: ARE YOU DIABETIC? NO . OTHER: DO YOU NEED ANY PRESCRIPTIONS? NO . IF YES, PLEASE LIST: ____ . ANY NEW PROBLEMS WITH YOUR MEDICATIONS? NO . WHEN DID YOU LAST EAT? ____ . WHEN DID YOU LAST DRINK? ____ . WHAT DID YOU LAST DRINK? ____ . NAME OF PERSON DRIVING YOU HOME? ____ . DO YOU HAVE ANY OTHER QUESTIONS OR CONCERNS NO . VITAL SIGNS WT 250 LBS, HT 74 IN, BMI 32.09 INDEX, BP 133/84 MM HG, HR 113 /MIN, RR 18 /MIN, TEMP 98.1 F, OXYGEN SAT % 98%, NA INITIALS SC 15:35, REVIEWED BY: NL. EXAMINATION GENERAL EXAMINATION: LUNGS:LUNG SOUNDS ARE CLEAR. HEART:HEART RATE REGULAR. MUSCULOSKELETAL:*, MUSCLE STRENGTH TESTING 5/5 BILATERAL, PALPATION: NEGATIVE FOR PAIN OVER L/S SPINE. NEGATIVE FOR PAIN OVER L/S PARSPINALS,SPECIFIC POINT TENDERNESS OVER BILATERAL SIJ. ASSESSMENTS SACROILIAC INFLAMMATION - M46.1 (PRIMARY) LUMBOSACRAL SPONDYLOSIS WITHOUT MYELOPATHY - M47.817 TREATMENT SACROILIAC INFLAMMATION NOTES: BILAT. SIJPT 2XWK [id number] BACK. PREVENTIVE MEDICINE DISCUSSED PRE PROCEDURE CARE WITH PT UNDERSTANDING EXPRESSED. PROCEDURE CODES FA211 ESTABILISHED PATIENT [facility] FACILITY CHARGE DISPOSITION & COMMUNICATION FOLLOW UP 2WK POST (REASON: BILAT. SIJ) ELECTRONICALLY SIGNED BY NOE IRVIN ON 05/01/2017 AT 07:27 PM EDT DISCLAIMER : THIS IS A VISIT SUMMARY EXTRACTED FROM THE [employer] CHART. IT IS NOT A COPY OF THE [employer] PROGRESS NOTE. BRANDAN
== END ==
LOC: M PAIN 15:00
PROVIDERS: ATTEND Nurse Practitioner Family
DX: M46.1 Sacroiliitis, not elsewhere classified (principal); M47.817 Spondylosis without myelopathy or radiculopathy, lumbosacral region; M54.5 Low back pain; M79.604 Pain in right leg; M79.605 Pain in left leg; G89.29 Other chronic pain; I12.9 Hypertensive chronic kidney disease with stage 1 through stage 4 chronic kidney disease, or unspecified chronic kidney disease; E11.9 Type 2 diabetes mellitus without complications; E78.5 Hyperlipidemia, unspecified; N18.2 Chronic kidney disease, stage 2 (mild); G43.009 Migraine without aura, not intractable, without status migrainosus; E55.9 Vitamin D deficiency, unspecified; J30.9 Allergic rhinitis, unspecified; Z79.82 Long term (current) use of aspirin; Z79.84 Long term (current) use of oral hypoglycemic drugs; Z79.891 Long term (current) use of opiate analgesic; Z79.899 Other long term (current) drug therapy; Z88.0 Allergy status to penicillin; Z88.1 Allergy status to other antibiotic agents; Z88.8 Allergy status to other drugs, medicaments and biological substances; Z91.018 Allergy to other foods

== ENCOUNTER → 2017-04-12 | Outpatient (CLI) | payer MEDICARE, MEDICAID ==
[2017-04-12 13:20] LABS: IONIZED CALCIUM 5.3 MG/DL (4.5-5.3)
[2017-04-12 13:59] LABS: ANION GAP 7 MEQ/L (8-16); BLOOD UREA NITROGEN 23 MG/DL (7-18); CALCIUM LEVEL 9.9 MG/DL (8.5-10.1); CARBON DIOXIDE LEVEL 29 MEQ/L (21-32); CHLORIDE LEVEL 110 MEQ/L (98-107); CREATININE FOR GFR 1.06 MG/DL (0.70-1.30); GLOMERULAR FILTRATION RATE > 60.0 (>56); GLUCOSE, FASTING 132 MG/DL (70-105); POTASSIUM SERUM 4.8 MEQ/L (3.5-5.1); SODIUM LEVEL 146 MEQ/L (136-145); URIC ACID 4.6 MG/DL (3.5-7.2)
--- NOTE | 2017-04-13 02:37 | REP ---
Clinical: Nephrolithiasis. Technique: Two supine views of the abdomen and pelvis. Findings: Evaluation is significantly limited by overlying bowel gas. However, small left intrarenal calculi measuring approximately up to 4 mm are suggested. No evidence for bowel obstruction. Skeletal structures are intact. Evidence for prior surgery. Impression: Findings suggest left intrarenal calculi and further evaluation of the urinary tract system is limited. Signed by Reggie Patel MD 04/13/2017 02:29 A
== END ==
LOC: M SMT 08:20
PROVIDERS: ATTEND Nurse Practitioner Women's Health
DX: N20.0 Calculus of kidney (principal)

== ENCOUNTER 2017-04-14 10:57 | Outpatient (CLI) | payer MEDICARE, MEDICAID ==
[~2017-04-14] VITALS: Ht 188 cm; Wt 113.4 kg
[2017-04-14] MEDS ORDERED: NS 1,000 ML IV ONE (11:15)
[2017-04-14] MEDS ORDERED: fentaNYL 100 MCG/2 ML INJECTION (J3010) As Ordered ONE (11:55)
[2017-04-14] MEDS ORDERED: PROPOFOL 200 MG/20 ML VIAL As Ordered ONE (11:57)
[2017-04-14] MEDS ORDERED: LIDOCAINE 2% INJ 100 MG/5 ML SDV (FOR ANES.) As Ordered ONE (11:57)
--- NOTE | 2017-04-14 12:13 | ROOR ---
Patient Name: Sim Strauss Procedure Date: 04/14/2017 11:55 AM Date of : 1960 Age: 56 Room: [facility] Gender: Male Note Status: Finalized Procedure: Upper GI endoscopy Indications: Acute post hemorrhagic anemia Providers: Dylan JALLOH MD Referring MD: Paramjit Jacobs MD Requesting Provider: Medicines: Monitored Anesthesia Care Complications: No immediate complications. Procedure: Pre-Anesthesia Assessment: - The heart rate, respiratory rate, oxygen saturations, blood pressure, adequacy of pulmonary ventilation, and response to care were monitored throughout the procedure. The Endoscope was introduced through the mouth, and advanced to the second part of duodenum. The upper GI endoscopy was accomplished without difficulty. The patient tolerated the procedure well. Findings: The esophagus was normal. The stomach was normal. The examined duodenum was normal. Impression: - Normal esophagus. - Normal stomach. - Normal examined duodenum. - No specimens collected. Recommendation: - Perform a colonoscopy today. Dylan Jalloh MD Dylan JALLOH MD 04/14/2017 12:12:47 PM This report has been signed electronically. Number of Addenda: 0 Note Initiated On: 04/14/2017 11:55 AM Estimated Blood Loss: Estimated blood loss: none.
--- NOTE | 2017-04-14 12:37 | ROOR ---
Patient Name: Sim Strauss Procedure Date: 04/14/2017 11:56 AM Date of : 1960 Age: 56 Room: [facility] Gender: Male Note Status: Finalized Procedure: Colonoscopy Indications: Acute post hemorrhagic anemia Providers: Dylan JALLOH MD Referring MD: Paramjit Jacobs MD Requesting Provider: Medicines: Monitored Anesthesia Care Complications: No immediate complications. Procedure: Pre-Anesthesia Assessment: - The heart rate, respiratory rate, oxygen saturations, blood pressure, adequacy of pulmonary ventilation, and response to care were monitored throughout the procedure. The Colonoscope was introduced through the anus and advanced to the terminal ileum, with identification of the appendiceal orifice and IC valve. The colonoscopy was performed without difficulty. The patient tolerated the procedure well. The quality of the bowel preparation was good. The bowel preparation used was GoLYTELY. (No results with 1 bottle of golytely, Pt eventually required 3 bottles of Golytely to clear colon) Findings: The perianal and digital rectal examinations were normal. (Exam: Complete, Prep: Good or Excellent.) Two sessile polyps were found in the sigmoid colon and splenic flexure. The polyps were diminutive in size. These polyps were removed with a cold snare. Resection and retrieval were complete. The exam was otherwise normal throughout the examined colon. The terminal ileum appeared normal. Impression: - (Exam: Complete, Prep: Good or Excellent.) - Two diminutive polyps in the sigmoid colon and at the splenic flexure, removed with a cold snare. Resected and retrieved. - The colon was otherwise normal. - The examined portion of the ileum was normal. Recommendation: - Await pathology results. - Telephone endoscopist for pathology results in 2 weeks. - If the pathology report reveals adenomatous tissue, then repeat the colonoscopy for surveillance in 5 years. Dylan Jalloh MD Dylan AJLLOH MD 04/14/2017 12:36:38 PM This report has been signed electronically. Number of Addenda: 0 Note Initiated On: 04/14/2017 11:56 AM Estimated Blood Loss: Estimated blood loss: none.
[2017-04-14 12:55] VITALS: BP 140/83
== END 2017-04-14 13:08 | disposition home or self-care (01) ==
LOC: M OPP 10:57
PROVIDERS: ATTEND Internal Medicine Gastroenterology
DX: D62 Acute posthemorrhagic anemia (principal); K63.5 Polyp of colon; D12.3 Benign neoplasm of transverse colon; E11.9 Type 2 diabetes mellitus without complications; I10 Essential (primary) hypertension; G43.909 Migraine, unspecified, not intractable, without status migrainosus; J45.909 Unspecified asthma, uncomplicated; F32.9 Major depressive disorder, single episode, unspecified; F41.9 Anxiety disorder, unspecified; D72.819 Decreased white blood cell count, unspecified; E78.00 Pure hypercholesterolemia, unspecified; I25.10 Atherosclerotic heart disease of native coronary artery without angina pectoris; G47.30 Sleep apnea, unspecified; K76.0 Fatty (change of) liver, not elsewhere classified; Z79.899 Other long term (current) drug therapy; Z86.14 Personal history of Methicillin resistant Staphylococcus aureus infection; Z86.11 Personal history of tuberculosis; K82.9 Disease of gallbladder, unspecified; D69.6 Thrombocytopenia, unspecified; Z88.0 Allergy status to penicillin; Z88.1 Allergy status to other antibiotic agents; Z91.018 Allergy to other foods; Z91.048 Other nonmedicinal substance allergy status
CPT/HCPCS: 43235; 45385; 88305; J3010

== ENCOUNTER → 2017-04-19 | Outpatient (CLI) | payer MEDICARE, MEDICAID ==
[~2017-04-19] MED LIST changes: +BUPIVACAINE HCL 0.25% 30 ML VIAL As Ordered ONE; +ISOVUE-M 300 61% 15ML VIAL (Q9967) As Ordered ONE; +LIDOCAINE 1% SDV INJ 30 ML VIAL As Ordered ONE; +TRIAMCINOLONE ACETONIDE SUSP 40 MG/ML VIAL (J3301) As Ordered ONE
--- NOTE | 2017-04-19 13:55 | REP ---
PARTIAL SI JOINT SERIES: SEVEN VIEWS. HISTORY: Injection procedure for pain. FINDINGS: A sequence of seven last image hold fluoroscopic spot radiographs of the SI joints document needle position and contrast injection for injection procedure. 34 seconds of fluoroscopy is reported. Signed by Duane Camargo MD 04/19/2017 03:33 P
--- NOTE | 2017-04-26 00:18 | ECWPNPC ---
PATIENT NAME: SHERON BACON : 1960 GENDER: MALE VISIT DATE: 04/19/2017 DISCHARGE DATE: 04/19/17 1324 VISIT LOCKED DATE TIME: PHYSICIAN: SHAKILA PEDERSEN PHYSICIAN PAGER NO: [phone] RESOURCE: SHAKILA PEDERSEN REASON FOR APPOINTMENT 1. BILAT. SIJ HISTORY OF PRESENT ILLNESS HISTORY OF PRESENT ILLNESS: PAIN THE PATIENT DESCRIBES THE PAIN... FALL RISK SCREENING: SCREENING :NO FALLS IN THE PAST YEAR CURRENT MEDICATIONS TAKING DRISDOL 85536 UNIT CAPSULE 1 CAPSULE ORALLY EVERY OTHER WEEK, NOTES: 04-12-17 TAKING CRESTOR 20 MG TABLET 1 TABLET ORALLY ONCE A DAY, NOTES: 04-19-17699 TAKING VITAMIN B-12 1000 MCG TABLET 1 TABLET ORALLY ONCE A DAY, NOTES: 04-18-172099 TAKING ASPIR-81 81 MG TABLET DELAYED RELEASE 1 TABLET ORALLY ONCE A DAY, NOTES: 04-18-172099 TAKING ADVAIR DISKUS 250-50 MCG/DOSE MISCELLANEOUS 1 INHALATION EVERY 12 HRS, NOTES: 04-19-17699 TAKING PROVENTIL HFA 108 (90 BASE) MCG/ACT AEROSOL SOLUTION 2 PUFFS NEEDED INHALATION EVERY 4 HRS PRN WHEEZE, NOTES: ONLY NEEDED OPT LATELY TAKING LIDODERM 5 % PATCH 1 PATCH TO BOTH HIPS EXTERNALLY ONCE A DAY ON 12 HOURS OFF 12 HOURS, NOTES: NOT LATELY TAKING TENS UNIT ELECTRO PADS . . DIRECTED . NEEDED, NOTES: NOT LATELY TAKING INDUSTRIAL BELT XL DX: 724.2 LUMBAR SUPPORT BELT DIRECTED . DAILY DURING WORK HOURS TAKING HYDROCODONE-ACETAMINOPHEN 5-325 MG TABLET 1 TABLET NEEDED ORALLY EVERY 12 HRS PRN PAIN, MDD 2, NOTES: A LONG TIME AGO TAKING EPIPEN 2-OSEAS 0.3 MG/0.3ML (1:1000) DEVICE INJECTABLE INTRAMUSCULAR ONCE NEEDED TAKING ZYRTEC ALLERGY 10 MG TABLET 1 TABLET ORALLY ONCE A DAY, NOTES: 04-19-17699 TAKING FLONASE 50 MCG/ACT SUSPENSION 2 NASALLY EVERY MORNING, NOTES: 04-19-17699 TAKING RELPAX 40 MG TABLET 1 TABLET AT ONSET OF HEADACHE, MAY REPEAT AFTER 2 HOURS IF HEADACHE RETURNS ORALLY QD PRN HEADACHE, NOTES: NOT LATELY TAKING RECLAST 5 MG/100ML SOLUTION DIRECTED INTRAVENOUS YEARLY, NOTES: OCTOBER 2016 TAKING EFFEXOR XR 150 MG CAPSULE EXTENDED RELEASE 24 HOUR 2 CAPSULES WITH FOOD ORALLY DAILY, NOTES: 04-18-172099 TAKING TRIAMCINOLONE ACETONIDE 0.1 % CREAM 1 APPLICATION TO AFFECTED AREA EXTERNALLY TO FACE TWICE A DAY PRN ECZEMA, NOTES: A COUPLE DAYS AGO TAKING MULTIVITAMINS OTC TABLET 1 TAB ORALLY DAILY, NOTES: 04-19-17699 TAKING TRAZODONE HCL 50 MG TABLET 2 TABLETS AT BEDTIME NEEDED ORALLY ONCE A DAY, NOTES: 04-18-172099 TAKING VOLTAREN 1 % GEL DIRECTED TRANSDERMAL FOUR TIMES DAILY, NOTES: A COUPLE DAYS AGO TAKING METFORMIN HCL ER 500 MG TABLET EXTENDED RELEASE 24 HOUR 1 TABLET ORALLY TWICE DAILY, NOTES: 04-17-172099 TAKING LOVAZA 1 GM CAPSULE 2 CAPSULES ORALLY TWICE A DAY, NOTES: 04-19-17699 TAKING SUMATRIPTAN SUCCINATE 50 MG TABLET 1 TABLET NEEDED ORALLY TWICE A DAY, PRN MIGRAINE-MAY TAKE SECOND DOSE 2H APART, NOTES: NOT LATEL TAKING DICLOFENAC SODIUM 1 % GEL APPLY TO AFFECTED AREA(S) FOUR TIMES A DAY DIRECTED , NOTES: NOT LATELY UNKNOWN SASHA KNEE BRACE HINGED - MISCELLANEOUS DIRECTED WHILE OOBED WALKING R KNEE _ DAILY UNKNOWN BLOOD GLUCOSE MONITOR SYSTEM W/DEVICE KIT ONE TOUCH VERIO FLEX DX: E11.9 DAILY UNKNOWN LANCETS - MISCELLANEOUS DX: E11.9 ONE TOUCH VERIO FLEX INTRADERMALLY DAILY UNKNOWN BLOOD GLUCOSE TEST - STRIP DIRECTED INTRADERMALLY DX: E11.9 DAILY UNKNOWN LACTULOSE 10 GM/15ML SOLUTION 30 ML ORALLY ONCE A DAY - STATES TAKES 15 GM, NOTES: NOT LATELY UNKNOWN BLOOD GLUCOSE TEST STRIP 1 ONE TOUCH TEST STRIP 250.02 SUBCUTANEOUSLY DAILY UNKNOWN LANCETS 1 LANCTES DEVICE DX:250.02 SUBCUTANEOUSLY DAILY UNKNOWN ZANAFLEX 4 MG TABLET 1 TABLET ORALLY EVERY 8 HOURS NEEDED FOR MUSCLE SPASTICITY MDD:3, NOTES: NOT LATELY UNKNOWN LOSARTAN POTASSIUM 50 MG TABLET 1 TABLET ORALLY TWICE A DAY, NOTES: 04-19-17699 UNKNOWN ZOFRAN 4 MG TABLET 1 TAB USUALLY 1-2X/W ORALLY ONE TO TWO TIMES A WEEK NEEDED, NOTES: NOT LATELY UNKNOWN CHLORTHALIDONE 25 MG TABLET 1 TABLET IN THE MORNING ORALLY ONCE A DAY MEDICATION LIST REVIEWED AND RECONCILED WITH THE PATIENT PAST MEDICAL HISTORY LUMBAR DJD-DIFFUSE, 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, DIFFUSE L2/3 AND L5/S1 BULGES BY 07/2014 MRI CHRONIC KIDNEY DISEASE STAGE III HYPERLIPIDEMIA 2B OSTEOPOROSIS NONALCOHOLIC FATTY LIVER DISEASE-SEEN BY AUGUST 2010 CT, FS 2010 FS2 LEVEL OF 45/NEGATIVE W/U-09/2010-REINDL/SEEN 10/2010 LIVER BIOPSY-MILDLY 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 (STAGE 2-3/4) FS 2 17 ANEMIA SECONDARY TO IRON DEFICIENCY MIGRAINE HEADACHES, COMMON TYPE-DECEMBER 2010 NORMAL MRA OF THE BRAIN/01/2011 NORMAL CTA BRAIN HISTORY OF BILATERAL NEPHROLITHIASIS ASTHMA MILD PERSISTENT CONSTIPATION CHRONIC OBSTRUCTIVE SLEEP APNEA VITAMIN B12 DEFICIENCY MUSHROOM ANAPHYLAXIS DYSPEPSIA/GERD ALLERGIC RHINITIS CHRONIC LEUKOPENIA DIABETES MELLITUS TYPE 2 HISTORY OF SBO, FEBRUARY 2010-LADI HISTORY OF NEPHROLITHIASIS-SEPTEMBER 2008, 24H URINE REMARKABLE FOR MILDLY ELEVATED CALCIUM AND URIC ACID ERECTILE DYSFUNCTION HISTORY OF HYPERCALCEMIA WITH SUPPRESSED PTH-SEPTEMBER 2009 WHOLE-BODY BONE SCAN WITH FOCAL UPTAKE BILATERAL RIBS AND COSTOVERTEBRAL JUNCTION/SEPTEMBER 2009 NEGATIVE WHOLE-BODY PET/CT SCAN AND BILATERAL RIB AND CHEST X-RAY ADENOMATOUS POLYP BY COLONOSCOPY OCTOBER 2010-REINDL/10/2011 NORMAL COLONOSCOPY-REINDL R HIP OA-MILD C CAM DEFORMITY SL FEMORAL HEAD BY 09/2013 BILATERAL TROCHANTERIC BURSITIS-MILD BY 09/2013 XRAY 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 SISTER ACQUIRED, A NURSE 10/2016 ALLERGIES CECLOR: HIVES: ALLERGY ERYTHROMYCIN: HIVES: ALLERGY PCN: HIVES: ALLERGY REGLAN: HIVES: ALLERGY MUSHROOMS: ANAPHYLAXIS: ALLERGY WATERMELON: HIVES: ALLERGY SOCIAL HISTORY GENERAL: TOBACCO USE ARE YOU A:NONSMOKER NEVER SMOKER ALCOHOL SCREENING DID YOU HAVE A DRINK CONTAINING ALCOHOL IN THE PAST YEAR?NO POINTS0 INTERPRETATIONNEGATIVE RECREATIONAL DRUG USE DRUG USE?NO CAFFEINE CAFFEINE USE?YES HOW OFTEN AND HOW MUCH? 2 LITER BOTTLE A DAY SEXUAL HX HAD SEX IN THE LAST 12 MONTHS (VAGINAL, ORAL, OR ANAL)?NO HAVE YOU EVER HAD AN STD?NO HIV / HEP-C SCREENING HIV TEST OFFERED TO PATIENT:YES DATE OFFERED:12/21/2016 TEST ACCEPTED:NO REASON:PATIENT DECLINED HEP-C TEST OFFERED TO PATIENT:YES DATE OFFERED:12/21/2016 TEST ACCEPTED:NO REASON:PATIENT DECLINED OCCUPATION: DISABLED. DIET: CARBOHYDRATE CONTROLLED. EXERCISE: NO REGULAR EXERCISE. MARITAL STATUS: SINGLE. TENRIISM TENRIISM CHURCH LANGUAGE LANGUAGES SPOKEN:[place]EN[place] EDUCATION LEVEL OF EDUCATION:NOT FINISHED COLLEGE LEARNING BARRIERS / SPECIAL NEEDS CHANGE FROM LAST VISIT?YES PAIN IN RIGHT PINKY FINGER WHEN USING BARRIERS TO LEARNING?NO HEARING IMPAIRED?NO VISION IMPAIRED?YES :CORRECTIVE LENSES NEW PATIENT PAIN DIARY TODAY'S VISITNOTES FROM 0-10, WHAT LEVEL IS YOUR PAIN TODAY?0 PAIN CLINIC PFS, CLERGY, PUBLIC HEALTH REFERRALS PFS REFERRAL NEEDED?NO CLERGY REFERRAL NEEDED?NO PUBLIC HEALTH REFERRAL NEEDED?NO WAS THE PROVIDER NOTIFIED OF ANY PERTINENT INFO?YES HAS THE PATIENT BEEN EDUCATED REGARDING HIS/HER PLAN OF CARE?YES PLEASE DOCUMENT ANY ADDTIONAL DETAILS. BILATERAL SACRO ILIAC JOINT INJ HAS THE PATIENT BEEN EDUCATED REGARDING PAIN, THE RISK FOR PAIN, THE IMPORTANCE OF EFFECTIVE PAIN MANAGEMENT, AND THE PAIN ASSESSMENT PROCESS?YES TRAVEL OUTSIDE US: NO. DOMESTIC VIOLENCE NONE. REVIEW OF SYSTEMS REVIEWED BY: PROVIDER: . CONSTITUTIONAL: ANY CHANGE IN YOUR MEDICAL CONDITION? NO . CHILLS NO . FEVER NO . INFECTION: DO YOU HAVE NEW INFECTIONS? NO . DO YOU HAVE HISTORY OF MRSA? NO . MUSCULOSKELETAL: ANY NEW PATTERNS OF PAIN OR NUMBNESS? NO . GASTROENTEROLOGY: ANY NEW CHANGE IN BOWEL CONTROL? NO . GENITOURINARY: ANY NEW CHANGE IN BLADDER CONTROL? NO . IS THERE A CHANCE YOU COULD BE ? NO . HEMATOLOGY/LYMPH: DO YOU TAKE ANY BLOOD THINNERS? (FOR EXAMPLE- COUMADIN, PLAVIX, AGGRENOX, PLATEL, PRADAXA, OR XARELTO) NO . WHEN WAS YOUR LAST DOSE? DATE: TIME: . NEUROLOGY: HAVE YOU FALLEN IN THE PAST 6 MONTHS? NO . ANY NEW EXTREMITY NUMBNESS OR WEAKNESS? NO . CARDIOLOGY: DO YOU HAVE A PACEMAKER OR DEFIBRILLATOR? NO . RESPIRATORY: HAVE YOU BEEN SICK IN THE PAST WEEK? NO . FEVER NO . FLU LIKE SYMPTOMS? NO . COUGH NO . INTEGUMENTARY: DO YOU HAVE ANY RASHES OR OPEN SORES? NO . ALLERGIC/IMMUNO: ARE YOU ALLERGIC TO SHELLFISH OR IV DYE? NO . ANY NEW ALLERGIES? NO . PSYCHIATRIC: DO YOU HAVE THOUGHTS OF HURTING YOURSELF OR SOMEONE ELSE? NO . ARE YOU ABUSED, NEGLECTED, OR IN AN UNSAFE ENVIRONMENT? NO . ENDOCRINOLOGY: ARE YOU DIABETIC? YES . OTHER: DO YOU NEED ANY PRESCRIPTIONS? NO . IF YES, PLEASE LIST: ____ . ANY NEW PROBLEMS WITH YOUR MEDICATIONS? NO . WHEN DID YOU LAST EAT? ____6 PM LAST NIGHT 04-18- . WHEN DID YOU LAST DRINK? ____7 THIS MORNING . WHAT DID YOU LAST DRINK? ____ . NAME OF PERSON DRIVING YOU HOME? ____LUIS BACON MOTHER . DO YOU HAVE ANY OTHER QUESTIONS OR CONCERNS NO . VITAL SIGNS WT 250 LBS, HT 74 IN, BMI 32.09 INDEX, BP 135/89 MM HG, HR 87 /MIN, RR 18 /MIN, TEMP 98.9 F, OXYGEN SAT % 98%, NA INITIALS SC 11:10, REVIEWED BY: KG. ASSESSMENTS SACROILIITIS, NOT ELSEWHERE CLASSIFIED - M46.1 (PRIMARY) PROCEDURES PN SI PRE PROCEDURE DIAGNOSIS SACROILIITIS, SACROILIAC JOINT DYSFUNCTION POST PROCEDURE DIAGNOSIS SACROILIITIS, SACROILIAC JOINT DYSFUNCTION PROCEDURE BILATERAL SACROILIAC JOINT BLOCK SURGEON DR. SHAKILA PEDERSEN DESK TOP PUBLISHER NONE ANESTHESIA LOCAL PRE PROCEDURE NOTE PATIENT WITH HISTORY OF CHRONIC LOW BACK PAIN. I EVALUATED THE PATIENT AND REVIEWED THE CHART. I WENT OVER THE RISKS, ALTERNATIVES, AND BENEFITS ASSOCIATED WITH THIS PROCEDURE. THE PATIENT WOULD LIKE TO PROCEED AND GAVE CONSENT TO PERFORM THE PROCEDURE. THE PATIENT DENIES UNEXPLAINABLE WEIGHT LOSS, FEVER, CHILLS, OR NEW CHANGES IN URINARY OR BOWEL CONTROL DESCRIPTION OF PROCEDURE THE PATIENT WAS BROUGHT TO THE PROCEDURE ROOM AND PLACED IN THE PRONE POSITION. THE LUMBOSACRAL AREA WAS CLEANED WITH CHLORAPREP SOLUTION AND DRAPED ASEPTICALLY. THE PROCEDURE WAS DONE UNDER STERILE CONDITIONS. I CHECKED LATERALITY AND THE LEVEL WHERE THE PROCEDURE WAS GOING TO BE PERFORMED WITH THE PATIENT AND THE SUPPORTING STAFF AT THE MOMENT OF THE TIME OUT IN THE PROCEDURE ROOM. UNDER FLUOROSCOPIC GUIDANCE, TARGET POINT WAS SELECTED AT THE LOWER BORDER OF THE RIGHT AND LEFT SACROILIAC JOINT. TARGET POINT WAS SELECTED AFTER MEDIAL ROTATION AND TILT OF THE MAGNIFIER OF THE C-ARM. LIDOCAINE WAS USED TO NUMB THE SKIN AND SUBCUTANEOUS TISSUE BELOW IT. A SPINAL NEEDLE, 22-GAUGE, WAS ADVANCED UNDER FLUOROSCOPIC GUIDANCE AND FOLLOWING PATIENT FEEDBACK UNTIL THE TARGET AREA WAS TOUCHED. THE POSITION OF THE NEEDLE WAS VERIFIED WITH AP AND LATERAL VIEWS. AFTER PROPER POSITION OF THE NEEDLE WAS ACHIEVED, ISOVUE M DYE 30%, 0.25 ML, WAS INJECTED SHOWING SPREAD OF THE DYE. THEN, A SOLUTION OF 20 MG OF KENALOG WAS INJECTED IN RIGHT JOINT WITH 3 ML OF BUPIVACAINE 0.125%. THERE WAS NO EVIDENCE OF BLOOD, PARESTHESIA OR CEREBROSPINAL FLUID DURING THE PROCEDURE. THE PATIENT WAS SENT TO THE RECOVERY ROOM. THE PATIENT WAS MOVING THE EXTREMITIES AND DOING WELL. THERE WAS NO COMPLICATION DURING THE PROCEDURE. FLUOROSCOPY TIME WAS 34 SECONDS POST PROCEDURE NOTE THE PATIENT WILL BE SEEN IN A FOLLOW UP IN THE NEXT FEW WEEKS. INSTRUCTIONS WERE GIVEN, QUESTIONS WERE ANSWERED, AND THE PATIENT EXPRESSED UNDERSTANDING AND AGREED WITH THE PLAN. I, LING MLEISSA, DOCUMENTED THE ABOVE INFORMATION ACTING A SCRIBE FOR DR. PEDERSEN. I HAVE REVIEWED THE ABOVE DOCUMENT, WRITTEN BY LING MELISSA SCRIBE AND I VERIFY THAT IT IS [facility] FLUORO GUIDANCE (PAIN)[id number] PROCEDURE CODES 74960 INJECT SACROILIAC JOINT, MODIFIERS: 50 [id number] RADXPS IN END [id number] PXD DISPOSITION & COMMUNICATION FOLLOW UP 3 WEEKS ELECTRONICALLY SIGNED BY SHAKILA PEDERSEN MD ON 04/25/2017 AT 09:22 PM EDT DISCLAIMER : THIS IS A VISIT SUMMARY EXTRACTED FROM THE [employer] CHART. IT IS NOT A COPY OF THE [employer] PROGRESS NOTE. MTDD
== END ==
LOC: M PAIN 11:15
PROVIDERS: ATTEND Anesthesiology
DX: G89.29 Other chronic pain (principal); M46.1 Sacroiliitis, not elsewhere classified; M54.5 Low back pain; I12.9 Hypertensive chronic kidney disease with stage 1 through stage 4 chronic kidney disease, or unspecified chronic kidney disease; E11.9 Type 2 diabetes mellitus without complications; E78.5 Hyperlipidemia, unspecified; G43.009 Migraine without aura, not intractable, without status migrainosus; N18.2 Chronic kidney disease, stage 2 (mild); E55.9 Vitamin D deficiency, unspecified; J30.9 Allergic rhinitis, unspecified; Z79.82 Long term (current) use of aspirin; Z79.84 Long term (current) use of oral hypoglycemic drugs; Z79.891 Long term (current) use of opiate analgesic; Z79.899 Other long term (current) drug therapy; Z88.8 Allergy status to other drugs, medicaments and biological substances; Z88.0 Allergy status to penicillin; Z88.1 Allergy status to other antibiotic agents; Z91.018 Allergy to other foods
CPT/HCPCS: G0260; J3301; Q9967

== ENCOUNTER → 2017-05-03 | Outpatient (CLI) | payer MEDICARE, MEDICAID ==
[~2017-05-03] MED LIST changes: -BUPIVACAINE HCL 0.25% 30 ML VIAL As Ordered ONE; -ISOVUE-M 300 61% 15ML VIAL (Q9967) As Ordered ONE; -LIDOCAINE 1% SDV INJ 30 ML VIAL As Ordered ONE; -TRIAMCINOLONE ACETONIDE SUSP 40 MG/ML VIAL (J3301) As Ordered ONE
--- NOTE | 2017-05-23 00:18 | ECWPNPC ---
PATIENT NAME: SHERON BACON : 1960 GENDER: MALE VISIT DATE: 05/03/2017 DISCHARGE DATE: 05/03/17 1502 VISIT LOCKED DATE TIME: PHYSICIAN: MERE ZURITA PHYSICIAN PAGER NO: [phone] RESOURCE: MERE ZURITA REASON FOR APPOINTMENT 1. POST PROCEDURE HISTORY OF PRESENT ILLNESS HISTORY OF PRESENT ILLNESS: HERE FOR POST PROCEDURE F/U.HAD BILATERAL SIJ ON 04/19/17.REPORTS SIGNIFICANT IMPROVEMENT IN PAIN POST PROCEDURE.RATING 0/10 VAS.HAS NOT STARTED PT YET.WILL BE STARTING SOON. PAIN THE PATIENT DESCRIBES THE PAIN... FALL RISK SCREENING: SCREENING :NO FALLS IN THE PAST YEAR CURRENT MEDICATIONS TAKING DRISDOL 89933 UNIT CAPSULE 1 CAPSULE ORALLY EVERY OTHER WEEK TAKING CRESTOR 20 MG TABLET 1 TABLET ORALLY ONCE A DAY TAKING VITAMIN B-12 1000 MCG TABLET 1 TABLET ORALLY ONCE A DAY TAKING ASPIR-81 81 MG TABLET DELAYED RELEASE 1 TABLET ORALLY ONCE A DAY TAKING ADVAIR DISKUS 250-50 MCG/DOSE MISCELLANEOUS 1 INHALATION EVERY 12 HRS TAKING PROVENTIL HFA 108 (90 BASE) MCG/ACT AEROSOL SOLUTION 2 PUFFS NEEDED INHALATION EVERY 4 HRS PRN WHEEZE TAKING LIDODERM 5 % PATCH 1 PATCH TO BOTH HIPS EXTERNALLY ONCE A DAY ON 12 HOURS OFF 12 HOURS TAKING TENS UNIT ELECTRO PADS . . DIRECTED . NEEDED TAKING INDUSTRIAL BELT XL DX: 724.2 LUMBAR SUPPORT BELT DIRECTED . DAILY DURING WORK HOURS TAKING HYDROCODONE-ACETAMINOPHEN 5-325 MG TABLET 1 TABLET NEEDED ORALLY EVERY 12 HRS PRN PAIN, MDD 2 TAKING EPIPEN 2-OSEAS 0.3 MG/0.3ML (1:1000) DEVICE INJECTABLE INTRAMUSCULAR ONCE NEEDED TAKING ZYRTEC ALLERGY 10 MG TABLET 1 TABLET ORALLY ONCE A DAY TAKING FLONASE 50 MCG/ACT SUSPENSION 2 NASALLY EVERY MORNING TAKING RELPAX 40 MG TABLET 1 TABLET AT ONSET OF HEADACHE, MAY REPEAT AFTER 2 HOURS IF HEADACHE RETURNS ORALLY QD PRN HEADACHE TAKING RECLAST 5 MG/100ML SOLUTION DIRECTED INTRAVENOUS YEARLY TAKING EFFEXOR XR 150 MG CAPSULE EXTENDED RELEASE 24 HOUR 2 CAPSULES WITH FOOD ORALLY DAILY TAKING TRIAMCINOLONE ACETONIDE 0.1 % CREAM 1 APPLICATION TO AFFECTED AREA EXTERNALLY TO FACE TWICE A DAY PRN ECZEMA TAKING MULTIVITAMINS OTC TABLET 1 TAB ORALLY DAILY TAKING TRAZODONE HCL 50 MG TABLET 2 TABLETS AT BEDTIME NEEDED ORALLY ONCE A DAY TAKING VOLTAREN 1 % GEL DIRECTED TRANSDERMAL FOUR TIMES DAILY TAKING METFORMIN HCL ER 500 MG TABLET EXTENDED RELEASE 24 HOUR 1 TABLET ORALLY TWICE DAILY TAKING LOVAZA 1 GM CAPSULE 2 CAPSULES ORALLY TWICE A DAY TAKING SUMATRIPTAN SUCCINATE 50 MG TABLET 1 TABLET NEEDED ORALLY TWICE A DAY, PRN MIGRAINE-MAY TAKE SECOND DOSE 2H APART TAKING DICLOFENAC SODIUM 1 % GEL APPLY TO AFFECTED AREA(S) FOUR TIMES A DAY DIRECTED TAKING LACTULOSE 10 GM/15ML SOLUTION TAKE 30ML BY MOUTH ONCE DAILY TAKING ONETOUCH ULTRA TEST - STRIP TEST DAILY UNKNOWN SASHA KNEE BRACE HINGED - MISCELLANEOUS DIRECTED WHILE OOBED WALKING R KNEE _ DAILY UNKNOWN BLOOD GLUCOSE MONITOR SYSTEM W/DEVICE KIT ONE TOUCH VERIO FLEX DX: E11.9 DAILY UNKNOWN LANCETS - MISCELLANEOUS DX: E11.9 ONE TOUCH VERIO FLEX INTRADERMALLY DAILY UNKNOWN BLOOD GLUCOSE TEST - STRIP DIRECTED INTRADERMALLY DX: E11.9 DAILY UNKNOWN BLOOD GLUCOSE TEST STRIP 1 ONE TOUCH TEST STRIP 250.02 SUBCUTANEOUSLY DAILY UNKNOWN LANCETS 1 LANCTES DEVICE DX:250.02 SUBCUTANEOUSLY DAILY UNKNOWN ZANAFLEX 4 MG TABLET 1 TABLET ORALLY EVERY 8 HOURS NEEDED FOR MUSCLE SPASTICITY MDD:3, NOTES: NOT LATELY UNKNOWN LOSARTAN POTASSIUM 50 MG TABLET 1 TABLET ORALLY TWICE A DAY, NOTES: 04-19-17 0700 UNKNOWN ZOFRAN 4 MG TABLET 1 TAB USUALLY 1-2X/W ORALLY ONE TO TWO TIMES A WEEK NEEDED, NOTES: NOT LATELY UNKNOWN CHLORTHALIDONE 25 MG TABLET 1 TABLET IN THE MORNING ORALLY ONCE A DAY MEDICATION LIST REVIEWED AND RECONCILED WITH THE PATIENT PAST MEDICAL HISTORY LUMBAR DJD-DIFFUSE, 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, DIFFUSE L2/3 AND L5/S1 BULGES BY 07/2014 MRI CHRONIC KIDNEY DISEASE STAGE III HYPERLIPIDEMIA 2B OSTEOPOROSIS NONALCOHOLIC FATTY LIVER DISEASE-SEEN BY AUGUST 2010 CT, FS 2010 FS2 LEVEL OF 45/NEGATIVE W/U-09/2010-REINDL/SEEN 10/2010 LIVER BIOPSY-MILDLY 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 (STAGE 2-3/4) FS 2 17 ANEMIA SECONDARY TO IRON DEFICIENCY MIGRAINE HEADACHES, COMMON TYPE-DECEMBER 2010 NORMAL MRA OF THE BRAIN/01/2011 NORMAL CTA BRAIN HISTORY OF BILATERAL NEPHROLITHIASIS ASTHMA MILD PERSISTENT CONSTIPATION CHRONIC OBSTRUCTIVE SLEEP APNEA VITAMIN B12 DEFICIENCY MUSHROOM ANAPHYLAXIS DYSPEPSIA/GERD ALLERGIC RHINITIS CHRONIC LEUKOPENIA DIABETES MELLITUS TYPE 2 HISTORY OF SBO, FEBRUARY 2010-LADI HISTORY OF NEPHROLITHIASIS-SEPTEMBER 2008, 24H URINE REMARKABLE FOR MILDLY ELEVATED CALCIUM AND URIC ACID ERECTILE DYSFUNCTION HISTORY OF HYPERCALCEMIA WITH SUPPRESSED PTH-SEPTEMBER 2009 WHOLE-BODY BONE SCAN WITH FOCAL UPTAKE BILATERAL RIBS AND COSTOVERTEBRAL JUNCTION/SEPTEMBER 2009 NEGATIVE WHOLE-BODY PET/CT SCAN AND BILATERAL RIB AND CHEST X-RAY ADENOMATOUS POLYP BY COLONOSCOPY OCTOBER 2010-REINDL/10/2011 NORMAL COLONOSCOPY-REINDL R HIP OA-MILD C CAM DEFORMITY SL FEMORAL HEAD BY 09/2013 BILATERAL TROCHANTERIC BURSITIS-MILD BY 09/2013 XRAY 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 SISTER ACQUIRED, A NURSE 10/2016 ALLERGIES CECLOR: HIVES: ALLERGY ERYTHROMYCIN: HIVES: ALLERGY PCN: HIVES: ALLERGY REGLAN: HIVES: ALLERGY MUSHROOMS: ANAPHYLAXIS: ALLERGY WATERMELON: HIVES: ALLERGY SURGICAL HISTORY BACK SURGERY X 2 NASAL SURGERY X 2 RIGHT WRIST GANGLION APPENDECTOMY CHOLECYSTECTOMY ESWL 02/17/2017 SOCIAL HISTORY GENERAL: TOBACCO USE ARE YOU A:NONSMOKER NEVER SMOKER ALCOHOL SCREENING DID YOU HAVE A DRINK CONTAINING ALCOHOL IN THE PAST YEAR?NO POINTS0 INTERPRETATIONNEGATIVE RECREATIONAL DRUG USE DRUG USE?NO CAFFEINE CAFFEINE USE?YES HOW OFTEN AND HOW MUCH? 2 LITER BOTTLE A DAY SEXUAL HX HAD SEX IN THE LAST 12 MONTHS (VAGINAL, ORAL, OR ANAL)?NO HAVE YOU EVER HAD AN STD?NO HIV / HEP-C SCREENING HIV TEST OFFERED TO PATIENT:YES DATE OFFERED:12/21/2016 TEST ACCEPTED:NO REASON:PATIENT DECLINED HEP-C TEST OFFERED TO PATIENT:YES DATE OFFERED:12/21/2016 TEST ACCEPTED:NO REASON:PATIENT DECLINED OCCUPATION: DISABLED. DIET: CARBOHYDRATE CONTROLLED. EXERCISE: NO REGULAR EXERCISE. MARITAL STATUS: SINGLE. [employer] LANGUAGE LANGUAGES SPOKEN:FRENCH EDUCATION LEVEL OF EDUCATION:NOT FINISHED COLLEGE LEARNING BARRIERS / SPECIAL NEEDS CHANGE FROM LAST VISIT?YES PAIN IN RIGHT PINKY FINGER WHEN USING BARRIERS TO LEARNING?NO HEARING IMPAIRED?NO VISION IMPAIRED?YES :CORRECTIVE LENSES NEW PATIENT PAIN DIARY TODAY'S VISITNOTES FROM 0-10, WHAT LEVEL IS YOUR PAIN TODAY?0 PAIN CLINIC PFS, CLERGY, PUBLIC HEALTH REFERRALS PFS REFERRAL NEEDED?NO CLERGY REFERRAL NEEDED?NO PUBLIC HEALTH REFERRAL NEEDED?NO WAS THE PROVIDER NOTIFIED OF ANY PERTINENT INFO?YES HAS THE PATIENT BEEN EDUCATED REGARDING HIS/HER PLAN OF CARE?YES PLEASE DOCUMENT ANY ADDTIONAL DETAILS. BILATERAL SACRO ILIAC JOINT INJ HAS THE PATIENT BEEN EDUCATED REGARDING PAIN, THE RISK FOR PAIN, THE IMPORTANCE OF EFFECTIVE PAIN MANAGEMENT, AND THE PAIN ASSESSMENT PROCESS?YES TRAVEL OUTSIDE US: NO. DOMESTIC VIOLENCE NONE. HOSPITALIZATION/MAJOR DIAGNOSTIC PROCEDURE SURGERIES REVIEW OF SYSTEMS REVIEWED BY: PROVIDER: MERE LIU . CONSTITUTIONAL: ANY CHANGE IN YOUR MEDICAL CONDITION? NO . CHILLS NO . FEVER NO . INFECTION: DO YOU HAVE NEW INFECTIONS? NO . DO YOU HAVE HISTORY OF MRSA? NO . MUSCULOSKELETAL: ANY NEW PATTERNS OF PAIN OR NUMBNESS? NO . GASTROENTEROLOGY: ANY NEW CHANGE IN BOWEL CONTROL? NO . GENITOURINARY: ANY NEW CHANGE IN BLADDER CONTROL? NO . IS THERE A CHANCE YOU COULD BE ? NO . HEMATOLOGY/LYMPH: DO YOU TAKE ANY BLOOD THINNERS? (FOR EXAMPLE- COUMADIN, PLAVIX, AGGRENOX, PLATEL, PRADAXA, OR XARELTO) NO . WHEN WAS YOUR LAST DOSE? DATE: TIME: . NEUROLOGY: HAVE YOU FALLEN IN THE PAST 6 MONTHS? NO . ANY NEW EXTREMITY NUMBNESS OR WEAKNESS? NO . CARDIOLOGY: DO YOU HAVE A PACEMAKER OR DEFIBRILLATOR? NO . RESPIRATORY: HAVE YOU BEEN SICK IN THE PAST WEEK? NO . FEVER NO . FLU LIKE SYMPTOMS? NO . COUGH NO . INTEGUMENTARY: DO YOU HAVE ANY RASHES OR OPEN SORES? NO . ALLERGIC/IMMUNO: ARE YOU ALLERGIC TO SHELLFISH OR IV DYE? NO . ANY NEW ALLERGIES? NO . PSYCHIATRIC: DO YOU HAVE THOUGHTS OF HURTING YOURSELF OR SOMEONE ELSE? NO . ARE YOU ABUSED, NEGLECTED, OR IN AN UNSAFE ENVIRONMENT? NO . ENDOCRINOLOGY: ARE YOU DIABETIC? YES . OTHER: DO YOU NEED ANY PRESCRIPTIONS? NO . IF YES, PLEASE LIST: ____ . ANY NEW PROBLEMS WITH YOUR MEDICATIONS? NO . WHEN DID YOU LAST EAT? ____ . WHEN DID YOU LAST DRINK? ____ . WHAT DID YOU LAST DRINK? ____ . NAME OF PERSON DRIVING YOU HOME? ____ . DO YOU HAVE ANY OTHER QUESTIONS OR CONCERNS NO . VITAL SIGNS WT 250 LBS, HT 74 IN, BMI 32.09 INDEX, BP 150/79 MM HG, HR 88 /MIN, RR 18 /MIN, TEMP 98.0 F, OXYGEN SAT % 96%, NA INITIALS AW 1439, REVIEWED BY: EM. EXAMINATION GENERAL EXAMINATION: LUNGS:LUNG SOUNDS ARE CLEAR. HEART:HEART RATE REGULAR. MUSCULOSKELETAL:*, MUSCLE STRENGTH TESTING 5/5 BILATERAL, PALPATION: NEGATIVE FOR PAIN OVER L/S SPINE. NEGATIVE FOR PAIN OVER L/S PARSPINALS,SPECIFIC POINT TENDERNESS OVER BILATERAL SIJ. ASSESSMENTS SACROILIAC INFLAMMATION - M46.1 (PRIMARY) LUMBOSACRAL SPONDYLOSIS WITHOUT MYELOPATHY - M47.817 TREATMENT SACROILIAC INFLAMMATION NOTES: START PT. PROCEDURE CODES FA211 ESTABILISHED PATIENT [facility] CHARGE DISPOSITION & COMMUNICATION FOLLOW UP 2 MONTHS ELECTRONICALLY SIGNED BY NOE IRVIN ON 05/22/2017 AT 12:01 PM EST DISCLAIMER : THIS IS A VISIT SUMMARY EXTRACTED FROM THE [employer] CHART. IT IS NOT A COPY OF THE [employer] PROGRESS NOTE. BRANDAN
== END ==
LOC: M PAIN 14:00
PROVIDERS: ATTEND Nurse Practitioner Family
DX: G89.29 Other chronic pain (principal); M46.1 Sacroiliitis, not elsewhere classified; M47.817 Spondylosis without myelopathy or radiculopathy, lumbosacral region; I12.9 Hypertensive chronic kidney disease with stage 1 through stage 4 chronic kidney disease, or unspecified chronic kidney disease; N18.2 Chronic kidney disease, stage 2 (mild); E78.00 Pure hypercholesterolemia, unspecified; G43.009 Migraine without aura, not intractable, without status migrainosus; J30.9 Allergic rhinitis, unspecified; E78.5 Hyperlipidemia, unspecified; K76.0 Fatty (change of) liver, not elsewhere classified; M81.0 Age-related osteoporosis without current pathological fracture; E55.9 Vitamin D deficiency, unspecified; E53.8 Deficiency of other specified B group vitamins; J45.30 Mild persistent asthma, uncomplicated; G47.33 Obstructive sleep apnea (adult) (pediatric); D50.9 Iron deficiency anemia, unspecified; Z88.1 Allergy status to other antibiotic agents; Z88.8 Allergy status to other drugs, medicaments and biological substances; Z91.018 Allergy to other foods; Z79.82 Long term (current) use of aspirin; Z79.891 Long term (current) use of opiate analgesic; Z79.84 Long term (current) use of oral hypoglycemic drugs; Z79.899 Other long term (current) drug therapy

== ENCOUNTER → 2017-07-04 | Outpatient (CLI) | payer MEDICARE, MEDICAID ==
--- NOTE | 2017-07-05 01:54 | ECWPNPC ---
PATIENT NAME: SHERON BACON : 1960 GENDER: MALE VISIT DATE: 07/04/2017 DISCHARGE DATE: 07/04/17 1520 VISIT LOCKED DATE TIME: PHYSICIAN: MERE ZURITA PHYSICIAN PAGER NO: [phone] RESOURCE: MERE ZURITA REASON FOR APPOINTMENT 1. BACK HISTORY OF PRESENT ILLNESS HISTORY OF PRESENT ILLNESS: HERE FOR F/U OF CHRONIC LOW BACK PAIN WITH BILATERAL LEG PAIN L>R.RATING PAIN VAS 1/10.DESCRIBES PAIN SHARP,ACHING AND STABBING PAIN. PAIN HAS BEEN REASONABLE LATELY.HE HAS ATTENDED PT AND CONTINUES TO DO A HOME THERAPY PROGRAM.PAIN IS AGGREVATED WITH INCRESED ACTIVITY AND IMPROVES WHEN HE LAYS ON HIS SIDE. PAIN THE PATIENT DESCRIBES THE PAIN... THE PATIENT DESCRIBES THE PAIN... FALL RISK SCREENING: SCREENING :NO FALLS IN THE PAST YEAR CURRENT MEDICATIONS TAKING VITAMIN B-12 1000 MCG TABLET 1 TABLET ORALLY ONCE A DAY TAKING ASPIR-81 81 MG TABLET DELAYED RELEASE 1 TABLET ORALLY ONCE A DAY TAKING ADVAIR DISKUS 250-50 MCG/DOSE MISCELLANEOUS 1 INHALATION EVERY 12 HRS TAKING PROVENTIL HFA 108 (90 BASE) MCG/ACT AEROSOL SOLUTION 2 PUFFS NEEDED INHALATION EVERY 4 HRS PRN WHEEZE TAKING LIDODERM 5 % PATCH 1 PATCH TO BOTH HIPS EXTERNALLY ONCE A DAY ON 12 HOURS OFF 12 HOURS TAKING TENS UNIT ELECTRO PADS . . DIRECTED . NEEDED TAKING INDUSTRIAL BELT XL DX: 724.2 LUMBAR SUPPORT BELT DIRECTED . DAILY DURING WORK HOURS TAKING HYDROCODONE-ACETAMINOPHEN 5-325 MG TABLET 1 TABLET NEEDED ORALLY EVERY 12 HRS PRN PAIN, MDD 2 TAKING EPIPEN 2-OSEAS 0.3 MG/0.3ML (1:1000) DEVICE INJECTABLE INTRAMUSCULAR ONCE NEEDED TAKING FLONASE 50 MCG/ACT SUSPENSION 2 NASALLY EVERY MORNING TAKING RELPAX 40 MG TABLET 1 TABLET AT ONSET OF HEADACHE, MAY REPEAT AFTER 2 HOURS IF HEADACHE RETURNS ORALLY QD PRN HEADACHE TAKING RECLAST 5 MG/100ML SOLUTION DIRECTED INTRAVENOUS YEARLY TAKING LACTULOSE 10 GM/15ML SOLUTION 30 ML ORALLY ONCE A DAY - STATES TAKES 15 GM TAKING VOLTAREN 1 % GEL DIRECTED TRANSDERMAL FOUR TIMES DAILY TAKING BLOOD GLUCOSE TEST STRIP 1 ONE TOUCH TEST STRIP 250.02 SUBCUTANEOUSLY DAILY TAKING LANCETS 1 LANCTES DEVICE DX:250.02 SUBCUTANEOUSLY DAILY TAKING EFFEXOR XR 150 MG CAPSULE EXTENDED RELEASE 24 HOUR 2 CAPSULES WITH FOOD ORALLY DAILY TAKING TRIAMCINOLONE ACETONIDE 0.1 % CREAM 1 APPLICATION TO AFFECTED AREA EXTERNALLY TO FACE TWICE A DAY PRN ECZEMA TAKING MULTIVITAMINS OTC TABLET 1 TAB ORALLY DAILY TAKING TRAZODONE HCL 50 MG TABLET 2 TABLETS AT BEDTIME NEEDED ORALLY ONCE A DAY TAKING ONETOUCH ULTRA TEST - STRIP TEST DAILY TAKING BLOOD GLUCOSE MONITOR SYSTEM W/DEVICE KIT ONE TOUCH VERIO FLEX DX: E11.9 DAILY TAKING LANCETS - MISCELLANEOUS DX: E11.9 ONE TOUCH VERIO FLEX INTRADERMALLY DAILY TAKING BLOOD GLUCOSE TEST - STRIP DIRECTED INTRADERMALLY DX: E11.9 DAILY TAKING LOSARTAN POTASSIUM 50 MG TABLET 1 TABLET ORALLY TWICE A DAY, NOTES: 04-19- 0700 TAKING ZOFRAN 4 MG TABLET 1 TAB USUALLY 1-2X/W ORALLY ONE TO TWO TIMES A WEEK NEEDED, NOTES: NOT LATELY TAKING CHOLECALCIFEROL 2000 UNIT CAPSULE 1 CAPSULE ORALLY ONCE A DAY TAKING LOVAZA 1 GM CAPSULE 2 CAPSULES ORALLY TWICE A DAY TAKING CRESTOR 20 MG TABLET TAKE ONE TABLET BY MOUTH EVERY DAY TAKING METFORMIN HCL ER 500 MG TABLET EXTENDED RELEASE 24 HOUR TAKE ONE TABLET BY MOUTH TWICE A DAY TAKING ZANAFLEX 4 MG TABLET 1 TABLET ORALLY EVERY 8 HOURS NEEDED FOR MUSCLE SPASTICITY MDD:3 TAKING ONETOUCH DELICA LANCETS 33G - MISCELLANEOUS USE TO TEST DAILY UNDER THE SKIN TAKING CLARITIN 10 MG TABLET 1 TABLET ORALLY ONCE A DAY TAKING HYDROXYZINE HCL 25 MG TABLET 1 TABLET NEEDED ORALLY EVERY 6 HRS TAKING ZANTAC 150 MG TABLET 1 TABLET AT BEDTIME ORALLY ONCE A DAY NOT-TAKING ZYRTEC ALLERGY 10 MG TABLET 1 TABLET ORALLY ONCE A DAY NOT-TAKING LACTULOSE 10 GM/15ML SOLUTION TAKE 30ML BY MOUTH ONCE DAILY NOT-TAKING LOSARTAN POTASSIUM 50 MG TABLET 1 TABLET ORALLY TWICE A DAY NOT-TAKING DICLOFENAC SODIUM 1 % GEL APPLY TO AFFECTED AREA(S) FOUR TIMES A DAY DIRECTED NOT-TAKING TRIAMCINOLONE ACETONIDE 0.025 % CREAM 1 APPLICATION TO EXCORIATED AREAS C HIVES EXTERNALLY BID MEDICATION LIST REVIEWED AND RECONCILED WITH THE PATIENT PAST MEDICAL HISTORY LUMBAR DJD-DIFFUSE, 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, DIFFUSE L2/3 AND L5/S1 BULGES BY 07/2014 MRI CHRONIC KIDNEY DISEASE STAGE III HYPERLIPIDEMIA 2B OSTEOPOROSIS NONALCOHOLIC FATTY LIVER DISEASE-SEEN BY AUGUST 2010 CT, FS 2010 FS2 LEVEL OF 45/NEGATIVE W/U-09/2010-REINDL/SEEN 10/2010 LIVER BIOPSY-MILDLY 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 (STAGE 2-3/4) FS 2 17 ANEMIA SECONDARY TO IRON DEFICIENCY MIGRAINE HEADACHES, COMMON TYPE-DECEMBER 2010 NORMAL MRA OF THE BRAIN/01/2011 NORMAL CTA BRAIN HISTORY OF BILATERAL NEPHROLITHIASIS ASTHMA MILD PERSISTENT CONSTIPATION CHRONIC OBSTRUCTIVE SLEEP APNEA VITAMIN B12 DEFICIENCY MUSHROOM ANAPHYLAXIS DYSPEPSIA/GERD-03/2017 NORMAL EGD-R ALLERGIC RHINITIS CHRONIC LEUKOPENIA DIABETES MELLITUS TYPE 2 HISTORY OF SBO, FEBRUARY 2010-LADI HISTORY OF NEPHROLITHIASIS-SEPTEMBER 2008, 24H URINE REMARKABLE FOR MILDLY ELEVATED CALCIUM AND URIC ACID ERECTILE DYSFUNCTION HISTORY OF HYPERCALCEMIA WITH SUPPRESSED PTH-SEPTEMBER 2009 WHOLE-BODY BONE SCAN WITH FOCAL UPTAKE BILATERAL RIBS AND COSTOVERTEBRAL JUNCTION/SEPTEMBER 2009 NEGATIVE WHOLE-BODY PET/CT SCAN AND BILATERAL RIB AND CHEST X-RAY ADENOMATOUS POLYP BY COLONOSCOPY OCTOBER 2010-REINDL/10/2011 NORMAL COLONOSCOPY-R DIMINUITIVE TUBULAR ADENOMA-R R HIP OA-MILD C CAM DEFORMITY SL FEMORAL HEAD BY 09/2013 BILATERAL TROCHANTERIC BURSITIS-MILD BY 09/2013 XRAY 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 SISTER ACQUIRED, A NURSE 10/2016 ALLERGIES CECLOR: HIVES: ALLERGY ERYTHROMYCIN: HIVES: ALLERGY PCN: HIVES: ALLERGY REGLAN: HIVES: ALLERGY MUSHROOMS: ANAPHYLAXIS: ALLERGY WATERMELON: HIVES: ALLERGY ORANGE KOOLAID/DYE: HIVES: ALLERGY SURGICAL HISTORY BACK SURGERY X 2 NASAL SURGERY X 2 RIGHT WRIST GANGLION APPENDECTOMY CHOLECYSTECTOMY ESWL 02/17/2017 COLONOSCOPY AND ENDOSCOPY- REINDL- 2 POLYPS 04/14/17 SOCIAL HISTORY GENERAL: TOBACCO USE ARE YOU A:NONSMOKER NEVER SMOKER ALCOHOL SCREENING DID YOU HAVE A DRINK CONTAINING ALCOHOL IN THE PAST YEAR?NO POINTS0 INTERPRETATIONNEGATIVE RECREATIONAL DRUG USE DRUG USE?NO CAFFEINE CAFFEINE USE?YES HOW OFTEN AND HOW MUCH? 2 LITER BOTTLE A DAY SEXUAL HX HAD SEX IN THE LAST 12 MONTHS (VAGINAL, ORAL, OR ANAL)?NO HAVE YOU EVER HAD AN STD?NO HIV / HEP-C SCREENING HIV TEST OFFERED TO PATIENT:YES DATE OFFERED:12/21/2016 TEST ACCEPTED:NO REASON:PATIENT DECLINED HEP-C TEST OFFERED TO PATIENT:YES DATE OFFERED:12/21/2016 TEST ACCEPTED:NO REASON:PATIENT DECLINED OCCUPATION: DISABLED. DIET: CARBOHYDRATE CONTROLLED. EXERCISE: NO REGULAR EXERCISE. MARITAL STATUS: SINGLE. 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 0. PAIN CLINIC PFS, CLERGY, PUBLIC HEALTH REFERRALS PFS REFERRAL NEEDED?NO CLERGY REFERRAL NEEDED?NO PUBLIC HEALTH REFERRAL NEEDED?NO WAS THE PROVIDER NOTIFIED OF ANY PERTINENT INFO?YES HAS THE PATIENT BEEN EDUCATED REGARDING HIS/HER PLAN OF CARE?YES PLEASE DOCUMENT ANY ADDTIONAL DETAILS. BILATERAL SACRO ILIAC JOINT INJ HAS THE PATIENT BEEN EDUCATED REGARDING PAIN, THE RISK FOR PAIN, THE IMPORTANCE OF EFFECTIVE PAIN MANAGEMENT, AND THE PAIN ASSESSMENT PROCESS?YES TRAVEL OUTSIDE US: NO. DOMESTIC VIOLENCE DO YOU FEEL SAFE IN YOUR ENVIRONMENT?YES HOSPITALIZATION/MAJOR DIAGNOSTIC PROCEDURE SURGERIES REVIEW OF SYSTEMS REVIEWED BY: PROVIDER: MERE LIU . CONSTITUTIONAL: ANY CHANGE IN YOUR MEDICAL CONDITION? NO . CHILLS NO . FEVER NO . INFECTION: DO YOU HAVE NEW INFECTIONS? NO . DO YOU HAVE HISTORY OF MRSA? NO . MUSCULOSKELETAL: ANY NEW PATTERNS OF PAIN OR NUMBNESS? NO . GASTROENTEROLOGY: ANY NEW CHANGE IN BOWEL CONTROL? NO . GENITOURINARY: ANY NEW CHANGE IN BLADDER CONTROL? NO . IS THERE A CHANCE YOU COULD BE ? NO . HEMATOLOGY/LYMPH: DO YOU TAKE ANY BLOOD THINNERS? (FOR EXAMPLE- COUMADIN, PLAVIX, AGGRENOX, PLATEL, PRADAXA, OR XARELTO) NO . WHEN WAS YOUR LAST DOSE? DATE: TIME: . NEUROLOGY: HAVE YOU FALLEN IN THE PAST 6 MONTHS? NO . ANY NEW EXTREMITY NUMBNESS OR WEAKNESS? NO . CARDIOLOGY: DO YOU HAVE A PACEMAKER OR DEFIBRILLATOR? NO . RESPIRATORY: HAVE YOU BEEN SICK IN THE PAST WEEK? NO . FEVER NO . FLU LIKE SYMPTOMS? NO . COUGH NO . INTEGUMENTARY: DO YOU HAVE ANY RASHES OR OPEN SORES? NO . ALLERGIC/IMMUNO: ARE YOU ALLERGIC TO SHELLFISH OR IV DYE? NO . ANY NEW ALLERGIES? NO . PSYCHIATRIC: DO YOU HAVE THOUGHTS OF HURTING YOURSELF OR SOMEONE ELSE? NO . ARE YOU ABUSED, NEGLECTED, OR IN AN UNSAFE ENVIRONMENT? NO . ENDOCRINOLOGY: ARE YOU DIABETIC? YES . OTHER: DO YOU NEED ANY PRESCRIPTIONS? NO . IF YES, PLEASE LIST: ____ . ANY NEW PROBLEMS WITH YOUR MEDICATIONS? NO . WHEN DID YOU LAST EAT? ____ . WHEN DID YOU LAST DRINK? ____ . WHAT DID YOU LAST DRINK? ____ . NAME OF PERSON DRIVING YOU HOME? ____ . DO YOU HAVE ANY OTHER QUESTIONS OR CONCERNS NO . VITAL SIGNS WT 250 LBS, HT 74 IN, BMI 32.09 INDEX, BP 159/95 MM HG, HR 89 /MIN, RR 18 /MIN, TEMP 96.9 F, OXYGEN SAT % 100, REVIEWED BY: NL @ 1501. EXAMINATION GENERAL EXAMINATION: LUNGS:LUNG SOUNDS ARE CLEAR. HEART:HEART RATE REGULAR. MUSCULOSKELETAL:*, MUSCLE STRENGTH TESTING 5/5 BILATERAL, PALPATION: NEGATIVE FOR PAIN OVER L/S SPINE. NEGATIVE FOR PAIN OVER L/S PARSPINALS,SPECIFIC POINT TENDERNESS OVER BILATERAL SIJ. ASSESSMENTS SACROILIAC INFLAMMATION - M46.1 (PRIMARY) LUMBOSACRAL SPONDYLOSIS WITHOUT MYELOPATHY - M47.817 TREATMENT SACROILIAC INFLAMMATION NOTES: CONTINUE HOME EXCERSISE. PROCEDURE CODES FA211 ESTABILISHED PATIENT [facility] CHARGE DISPOSITION & COMMUNICATION FOLLOW UP 2 MONTHS ELECTRONICALLY SIGNED BY NOE IRVIN ON 07/04/2017 AT 04:16 PM EST DISCLAIMER : THIS IS A VISIT SUMMARY EXTRACTED FROM THE [employer] CHART. IT IS NOT A COPY OF THE [employer] PROGRESS NOTE. HERVED
== END ==
LOC: M PAIN 14:30
PROVIDERS: ATTEND Nurse Practitioner Family
DX: G89.29 Other chronic pain (principal); M46.1 Sacroiliitis, not elsewhere classified; M47.817 Spondylosis without myelopathy or radiculopathy, lumbosacral region; I12.9 Hypertensive chronic kidney disease with stage 1 through stage 4 chronic kidney disease, or unspecified chronic kidney disease; N18.2 Chronic kidney disease, stage 2 (mild); G43.009 Migraine without aura, not intractable, without status migrainosus; J45.30 Mild persistent asthma, uncomplicated; E11.9 Type 2 diabetes mellitus without complications; E78.5 Hyperlipidemia, unspecified; K76.0 Fatty (change of) liver, not elsewhere classified; M81.0 Age-related osteoporosis without current pathological fracture; E55.9 Vitamin D deficiency, unspecified; E53.8 Deficiency of other specified B group vitamins; D50.9 Iron deficiency anemia, unspecified; G47.33 Obstructive sleep apnea (adult) (pediatric); Z88.1 Allergy status to other antibiotic agents; Z91.018 Allergy to other foods; Z88.8 Allergy status to other drugs, medicaments and biological substances; Z79.82 Long term (current) use of aspirin; Z79.84 Long term (current) use of oral hypoglycemic drugs; Z79.899 Other long term (current) drug therapy

== ENCOUNTER → 2017-09-06 | Outpatient (REF) | payer MEDICARE, MEDICAID ==
[2017-09-06 15:58] LABS: BASO % 0.8 % (0.0-1.0); EOS # 0.3 10^3/uL (0.0-0.50); EOS % 6.3 % (0.0-3.0); HEMATOCRIT 40.7 % (42.0-52.0); HEMOGLOBIN 13.8 g/dl (14.0-18.0); IMMATURE GRANULOCYTE % 0.2 % (0-3.0); LYMPH # 0.9 10^3/uL (1.5-4.5); LYMPH % 17.8 % (24.0-44.0); MEAN CORPUSCULAR HEMOGLOBIN 29.8 pg (27.0-33.0); MEAN CORPUSCULAR HGB CONC 33.9 g/dl (32.0-36.5); MEAN CORPUSCULAR VOLUME 87.9 fl (80.0-96.0); MONO # 0.4 10^3/uL (0.0-0.8); MONO % 8.7 % (0.0-5.0); NEUTROPHILS # 3.4 10^3/uL (1.8-7.7); NEUTROPHILS % 66.2 % (36.0-66.0); PLATELET COUNT, AUTOMATED 187 10^3/uL (150-450); RED BLOOD COUNT 4.63 10^6/uL (4.30-6.10); RED CELL DISTRIBUTION WIDTH 13.3 % (11.5-14.5); WHITE BLOOD COUNT 5.1 10^3/uL (4.0-10.0)
[2017-09-06 16:05] LABS: TOTAL 25(OH) VITAMIN D 39.2 NG/ML (30.0-100.0)
[2017-09-06 16:06] LABS: PTH INTACT 20.3 PG/ML (18.5-88.0)
[2017-09-06 16:09] LABS: ALBUMIN 4.3 GM/DL (3.2-5.2); ALBUMIN/GLOBULIN RATIO 1.43 (1.00-1.93); ALKALINE PHOSPHATASE 107 U/L (45-117); ALT/SGPT 87 U/L (12-78); ANION GAP 6 MEQ/L (8-16); AST/SGOT 47 U/L (7-37); BILIRUBIN,TOTAL 0.5 MG/DL (0.2-1.0); BLOOD UREA NITROGEN 15 MG/DL (7-18); CALCIUM LEVEL 9.7 MG/DL (8.5-10.1); CARBON DIOXIDE LEVEL 29 MEQ/L (21-32); CHLORIDE LEVEL 108 MEQ/L (98-107); CHOLESTEROL LEVEL 83 MG/DL (<200); CHOLESTEROL RISK RATIO 3.074 (<5); CREATININE FOR GFR 0.99 MG/DL (0.70-1.30); FERRITIN 121 NG/ML (26-388); FREE T4 0.98 NG/DL (0.76-1.46); GLOMERULAR FILTRATION RATE > 60.0 (>56); GLUCOSE, FASTING 130 MG/DL (70-100); HDL CHOLESTEROL 27 MG/DL (>40); IRON (FE) 75 UG/DL (65-175); NON-HDL-C 56 MG/DL; PERCENT SATURATION 21.1 % (19.7-50.0); POTASSIUM SERUM 4.4 MEQ/L (3.5-5.1); SODIUM LEVEL 143 MEQ/L (136-145); TOTAL IRON BINDING CAPACITY 355 UG/DL (250-450); TOTAL PROTEIN 7.3 GM/DL (6.4-8.2); TRIGLYCERIDES LEVEL 180 MG/DL (<150)
[2017-09-12 00:06] LABS: F002-IgE Milk 0.15 kU/L (Class 0/I); F004-IgE Wheat < 0.10 kU/L (Class 0); F013-IgE Peanut < 0.10 kU/L (Class 0); F014-IgE Soybean < 0.10 kU/L (Class 0); F026-IgE Pork < 0.10 kU/L (Class 0); F027-IgE Beef < 0.10 kU/L (Class 0); F245-IgE Egg, Whole < 0.10 kU/L (Class 0); FX02-IgE Food Mix (Sea Foods) Negative (.)
== END ==
LOC: M SFHCPLAZ 08:19
DX: D50.9 Iron deficiency anemia, unspecified (principal); E78.5 Hyperlipidemia, unspecified; E55.9 Vitamin D deficiency, unspecified; Z91.018 Allergy to other foods; Z91.09 Other allergy status, other than to drugs and biological substances
CPT/HCPCS: 83550

== ENCOUNTER → 2017-09-09 | Outpatient (CLI) | payer MEDICARE, MEDICAID | LOC: M PAIN 13:15 | DX: M46.1 Sacroiliitis, not elsewhere classified (principal); M47.817 Spondylosis without myelopathy or radiculopathy, lumbosacral region; G89.29 Other chronic pain; E11.9 Type 2 diabetes mellitus without complications; E78.5 Hyperlipidemia, unspecified; J45.909 Unspecified asthma, uncomplicated; G43.909 Migraine, unspecified, not intractable, without status migrainosus; Z79.82 Long term (current) use of aspirin; Z79.84 Long term (current) use of oral hypoglycemic drugs; Z79.891 Long term (current) use of opiate analgesic; Z79.899 Other long term (current) drug therapy; Z88.8 Allergy status to other drugs, medicaments and biological substances; Z91.018 Allergy to other foods; Z86.14 Personal history of Methicillin resistant Staphylococcus aureus infection | CPT/HCPCS: G0463 ==

== ENCOUNTER → 2017-10-12 | Outpatient (CLI) | payer MEDICARE, MEDICAID ==
[~2017-10-12] MED LIST changes: -/ADVA50050 INH; -/RISE35TA OR; -ADV250INH INH; -ADVA45AE IN; -ALBU17IN2 INH; -ASPI1TAB PO; -BABY81CH OR; -CALA240T PO; -CALC12502; -CHLO25TA PO; -CLAR5CHW; -CLAR5CHW OR; -CLARITIN D; -CRES20TA PO; -CRES5TAB OR; -EFFE150C OR; -EFFE150C PO; -EPI PEN SC; -FERR325T OR; -FLEXERIL OR; -FLOM5CAP PO; -FLUT1SPR2; -HYDR-3713 PO; -IMIT50TA PO; +ISOVUE-M 300 61% 15ML VIAL (Q9967) As Ordered; -LACT10SO29 PO; -LIDO1OIN2 TOP; -LIDO5DIS EXT; -LIDO5DIS41 TD; +LIDOCAINE 1% SDV INJ 30 ML VIAL As Ordered; -LOPERAMIDE OR; -LORA0.5T OR; -LOSA25TA8 PO; -LOVA1CAP17 PO; -LOVAZA OR; -METF-699 PO; -MS C30TA2 OR; -NAPR250T4 PO; -NAPR500T OR; -NASONEX; -OMEG100011 PO; -ONDA4TAB6 PO; -PREG100CA; -RECL5INJ2 IV; -RELP40TA PO; -RELPAX OR; -ROBA750T4 PO; -SING10TA31; -SING10TA31 OR; -SOLARAZE; -THERGRAN OR; -THERTAB30 PO; -TIZA4CAP3 PO; -TRAZ100T; -TRAZ50TA PO; -TRAZ50TA11 PO; -TRIA1CR TOP; -TRIC145T19 OR; -TYLE650T35 PO; -VENL150T PO; -VICO5TAB OR; -VITA-113 SL; -VITA1CAP25 PO; -VITATAB11 PO; -VOLT1GEL15 TD; -ZANA4CAP OR; -ZYRT10CA PO; -ZYRT10TA6 OR; -[UNRECOGNIZED DRUG - OTHER] OR; -amitiza PO; -drisdol PO; -lovaza PO; +methylPREDNISolone SUSP 40 MG/ML (DEPO-medrol) VIAL (J1030) As Ordered; -reclast INJ
== END ==
LOC: M PAIN 08:30
DX: G89.29 Other chronic pain (principal); M51.17 Intervertebral disc disorders with radiculopathy, lumbosacral region; N18.3 Chronic kidney disease, stage 3 (moderate); E11.9 Type 2 diabetes mellitus without complications; E78.5 Hyperlipidemia, unspecified; D50.9 Iron deficiency anemia, unspecified; G43.909 Migraine, unspecified, not intractable, without status migrainosus; J45.909 Unspecified asthma, uncomplicated; E53.8 Deficiency of other specified B group vitamins; D72.819 Decreased white blood cell count, unspecified; M16.11 Unilateral primary osteoarthritis, right hip; G47.33 Obstructive sleep apnea (adult) (pediatric); Z79.82 Long term (current) use of aspirin; Z79.84 Long term (current) use of oral hypoglycemic drugs; Z79.899 Other long term (current) drug therapy; Z88.1 Allergy status to other antibiotic agents; Z88.8 Allergy status to other drugs, medicaments and biological substances; Z91.018 Allergy to other foods; Z87.442 Personal history of urinary calculi
CPT/HCPCS: J1030

== ENCOUNTER → 2017-12-26 | Outpatient (CLI) | payer MEDICARE, MEDICAID | LOC: M PAIN 09:45 | DX: M46.1 Sacroiliitis, not elsewhere classified (principal); M47.817 Spondylosis without myelopathy or radiculopathy, lumbosacral region; G89.29 Other chronic pain; E11.22 Type 2 diabetes mellitus with diabetic chronic kidney disease; N18.2 Chronic kidney disease, stage 2 (mild); E78.5 Hyperlipidemia, unspecified; K76.0 Fatty (change of) liver, not elsewhere classified; G47.33 Obstructive sleep apnea (adult) (pediatric); D50.9 Iron deficiency anemia, unspecified; E53.8 Deficiency of other specified B group vitamins; M16.11 Unilateral primary osteoarthritis, right hip; M85.80 Other specified disorders of bone density and structure, unspecified site; Z79.82 Long term (current) use of aspirin; Z79.84 Long term (current) use of oral hypoglycemic drugs; Z79.899 Other long term (current) drug therapy; Z88.1 Allergy status to other antibiotic agents; Z88.8 Allergy status to other drugs, medicaments and biological substances; Z91.018 Allergy to other foods | CPT/HCPCS: G0463 ==

== ENCOUNTER → 2017-12-30 | Outpatient (REF) | payer MEDICARE, MEDICAID ==
[2017-12-30 12:56] LABS: ALBUMIN 4.2 GM/DL (3.2-5.2); ALBUMIN/GLOBULIN RATIO 1.27 (1.00-1.93); ALKALINE PHOSPHATASE 111 U/L (45-117); ALT/SGPT 95 U/L (12-78); ANION GAP 7 MEQ/L (8-16); AST/SGOT 62 U/L (7-37); BILIRUBIN,TOTAL 0.5 MG/DL (0.2-1.0); BLOOD UREA NITROGEN 19 MG/DL (7-18); CALCIUM LEVEL 9.7 MG/DL (8.5-10.1); CARBON DIOXIDE LEVEL 27 MEQ/L (21-32); CHLORIDE LEVEL 109 MEQ/L (98-107); CREATININE FOR GFR 1.07 MG/DL (0.70-1.30); GLOMERULAR FILTRATION RATE > 60.0 (>56); GLUCOSE, FASTING 141 MG/DL (70-100); POTASSIUM SERUM 4.7 MEQ/L (3.5-5.1); SODIUM LEVEL 143 MEQ/L (136-145); TOTAL PROTEIN 7.5 GM/DL (6.4-8.2)
[2017-12-30 13:21] LABS: BASO # 0.1 10^3/uL (0.0-0.2); BASO % 0.9 % (0.0-1.0); EOS # 0.3 10^3/uL (0.0-0.50); EOS % 5.9 % (0.0-3.0); HEMATOCRIT 40.3 % (42.0-52.0); HEMOGLOBIN 13.6 g/dl (13.5-17.5); IMMATURE GRANULOCYTE % 0.2 % (0-3.0); LYMPH # 0.8 10^3/uL (1.5-4.5); LYMPH % 15.6 % (24.0-44.0); MEAN CORPUSCULAR HEMOGLOBIN 29.5 pg (27.0-33.0); MEAN CORPUSCULAR HGB CONC 33.7 g/dl (32.0-36.5); MEAN CORPUSCULAR VOLUME 87.4 fl (80.0-96.0); MONO # 0.5 10^3/uL (0.0-0.8); MONO % 8.9 % (0.0-5.0); NEUTROPHILS # 3.6 10^3/uL (1.8-7.7); NEUTROPHILS % 68.5 % (36.0-66.0); PLATELET COUNT, AUTOMATED 168 10^3/uL (150-450); RED BLOOD COUNT 4.61 10^6/uL (4.30-6.10); RED CELL DISTRIBUTION WIDTH 13.9 % (11.5-14.5); RETIC HEMOGLOBIN EQUIVALENT 34.5 pg (24-36); RETICULOCYTE # 93.1 10^9/L (17-77); WHITE BLOOD COUNT 5.3 10^3/uL (4.0-10.0)
[2017-12-30 13:50] LABS: ESTIMATED AVERAGE GLUCOSE 111 MG/DL (60-110); HEMOGLOBIN A1c 5.5 %
[2017-12-30 19:41] LABS: APPEARANCE, URINE CLOUDY (CLEAR); BACTERIA, URINE AUTO NEGATIVE (NEGATIVE); BILIRUBIN, URINE AUTO NEGATIVE (NEGATIVE); BLOOD, URINE BLOOD NEGATIVE (NEGATIVE); CALCIUM OXALATE CRYSTALS LARGE; COLOR, URINE AMBER (YELLOW); GLUCOSE, URINE (UA) AUTO NEGATIVE (NEGATIVE); KETONE, URINE AUTO NEGATIVE (NEGATIVE); LEUKOCYTE ESTERASE, URINE AUTO NEGATIVE (NEGATIVE); MUCUS, URINE SMALL (NEGATIVE); NITRITE, URINE AUTO NEGATIVE (NEGATIVE); PROTEIN, URINE AUTO NEGATIVE (NEGATIVE); RBC, URINE AUTO 0 /HPF (0-3); SPECIFIC GRAVITY URINE AUTO 1.021 (1.002-1.035); SQUAMOUS EPITHELIAL CELL UR AU 0 /HPF (0-6); UROBILINOGEN, URINE AUTO 0.2 mg/dL (0.0-2.0); WBC, URINE AUTO 2 /HPF (0-3)
[2017-12-30 19:54] LABS: MALB URINE SIEMENS 17.5 MG/L; MAU/CREAT RATIO 8.3 MCG/MG (0.0-30.0)
[2018-01-02 00:09] LABS: F212-IGE MUSHROOM <0.10 kU/L (Class 0); F329-IGE WATERMELON <0.10 kU/L (Class 0)
[2018-01-02 00:09] LABS: INSULIN LEVEL 35.6 uIU/mL (2.6-24.9)
== END ==
LOC: M SFHCPLAZ 07:57
DX: D50.9 Iron deficiency anemia, unspecified (principal); N18.2 Chronic kidney disease, stage 2 (mild); E53.8 Deficiency of other specified B group vitamins; E11.9 Type 2 diabetes mellitus without complications; Z91.018 Allergy to other foods
CPT/HCPCS: 83525

== ENCOUNTER → 2018-01-13 | Outpatient (CLI) | payer MEDICARE, MEDICAID | LOC: M RAD 07:17 | DX: K76.0 Fatty (change of) liver, not elsewhere classified (principal); Z90.49 Acquired absence of other specified parts of digestive tract | CPT/HCPCS: 76705 ==

== ENCOUNTER → 2018-02-27 | Outpatient (CLI) | payer MEDICARE, MEDICAID | LOC: M PAIN 09:00 | DX: M79.1 Myalgia (principal); M47.817 Spondylosis without myelopathy or radiculopathy, lumbosacral region; M51.26 Other intervertebral disc displacement, lumbar region; N18.3 Chronic kidney disease, stage 3 (moderate); E78.5 Hyperlipidemia, unspecified; M81.0 Age-related osteoporosis without current pathological fracture; K76.0 Fatty (change of) liver, not elsewhere classified; D50.9 Iron deficiency anemia, unspecified; G43.009 Migraine without aura, not intractable, without status migrainosus; J45.30 Mild persistent asthma, uncomplicated; K59.09 Other constipation; G47.33 Obstructive sleep apnea (adult) (pediatric); E53.8 Deficiency of other specified B group vitamins; E11.42 Type 2 diabetes mellitus with diabetic polyneuropathy; N52.9 Male erectile dysfunction, unspecified; M72.0 Palmar fascial fibromatosis [Dupuytren]; Z86.14 Personal history of Methicillin resistant Staphylococcus aureus infection; Z87.442 Personal history of urinary calculi; Z79.82 Long term (current) use of aspirin; Z79.891 Long term (current) use of opiate analgesic; Z79.84 Long term (current) use of oral hypoglycemic drugs; Z79.899 Other long term (current) drug therapy; Z90.49 Acquired absence of other specified parts of digestive tract; Z88.1 Allergy status to other antibiotic agents; Z88.8 Allergy status to other drugs, medicaments and biological substances; Z91.018 Allergy to other foods | CPT/HCPCS: G0463 ==

== ENCOUNTER → 2018-04-04 | Outpatient (CLI) | payer MEDICARE, MEDICAID | LOC: M PAIN 09:00 | DX: Z53.29 Procedure and treatment not carried out because of patient's decision for other reasons (principal) ==

== ENCOUNTER → 2018-04-05 | Outpatient (CLI) | payer MEDICARE, MEDICAID | LOC: M PAIN 10:00 | DX: M79.1 Myalgia (principal); M47.817 Spondylosis without myelopathy or radiculopathy, lumbosacral region; N18.3 Chronic kidney disease, stage 3 (moderate); E78.5 Hyperlipidemia, unspecified; G43.909 Migraine, unspecified, not intractable, without status migrainosus; G47.30 Sleep apnea, unspecified; E11.9 Type 2 diabetes mellitus without complications; Z79.82 Long term (current) use of aspirin; Z79.84 Long term (current) use of oral hypoglycemic drugs; Z79.891 Long term (current) use of opiate analgesic; Z79.899 Other long term (current) drug therapy; Z88.0 Allergy status to penicillin; Z88.8 Allergy status to other drugs, medicaments and biological substances; Z91.018 Allergy to other foods; Z91.048 Other nonmedicinal substance allergy status | CPT/HCPCS: G0463 ==

== ENCOUNTER → 2018-05-04 | Outpatient (REF) | payer MEDICARE, MEDICAID ==
[2018-05-04 12:51] LABS: BASO % 0.9 % (0.0-1.0); EOS # 0.2 10^3/uL (0.0-0.50); EOS % 4.5 % (0.0-3.0); HEMOGLOBIN 13.1 g/dl (13.5-17.5); IMMATURE GRANULOCYTE % 0.9 % (0-3.0); LYMPH # 0.7 10^3/uL (1.5-4.5); LYMPH % 14.9 % (24.0-44.0); MEAN CORPUSCULAR HEMOGLOBIN 29.3 pg (27.0-33.0); MEAN CORPUSCULAR HGB CONC 33.6 g/dl (32.0-36.5); MEAN CORPUSCULAR VOLUME 87.2 fl (80.0-96.0); MONO # 0.4 10^3/uL (0.0-0.8); MONO % 7.5 % (0.0-5.0); NEUTROPHILS # 3.3 10^3/uL (1.8-7.7); NEUTROPHILS % 71.3 % (36.0-66.0); PLATELET COUNT, AUTOMATED 197 10^3/uL (150-450); RED BLOOD COUNT 4.47 10^6/uL (4.30-6.10); RED CELL DISTRIBUTION WIDTH 13.6 % (11.5-14.5); WHITE BLOOD COUNT 4.6 10^3/uL (4.0-10.0)
[2018-05-04 13:00] LABS: INR 0.91; PROTHROMBIN TIME 12.4 SECONDS (12.1-14.4)
[2018-05-04 13:12] LABS: ALBUMIN 3.9 GM/DL (3.2-5.2); ALBUMIN/GLOBULIN RATIO 1.26 (1.00-1.93); ALKALINE PHOSPHATASE 146 U/L (45-117); ALT/SGPT 65 U/L (12-78); ANION GAP 6 MEQ/L (8-16); AST/SGOT 44 U/L (7-37); BILIRUBIN,TOTAL 0.5 MG/DL (0.2-1.0); BLOOD UREA NITROGEN 15 MG/DL (7-18); CALCIUM LEVEL 9.2 MG/DL (8.5-10.1); CARBON DIOXIDE LEVEL 28 MEQ/L (21-32); CHLORIDE LEVEL 108 MEQ/L (98-107); CREATININE FOR GFR 1.14 MG/DL (0.70-1.30); GLOMERULAR FILTRATION RATE > 60.0 (>56); GLUCOSE, FASTING 88 MG/DL (70-100); POTASSIUM SERUM 4.7 MEQ/L (3.5-5.1); PSA SCREENING 0.69 NG/ML (< 4.0); SODIUM LEVEL 142 MEQ/L (136-145)
[2018-05-04 13:51] LABS: ESTIMATED AVERAGE GLUCOSE 108 MG/DL (60-110); HEMOGLOBIN A1c 5.4 %
[2018-05-05 11:21] LABS: ALPHA FETOPROTEIN TUMOR QUANT < 1.3 NG/ML (<8.1)
== END ==
LOC: M SFHCPLAZ 08:41
DX: K76.0 Fatty (change of) liver, not elsewhere classified (principal); D50.9 Iron deficiency anemia, unspecified; Z12.5 Encounter for screening for malignant neoplasm of prostate; I10 Essential (primary) hypertension; E11.9 Type 2 diabetes mellitus without complications
CPT/HCPCS: 82607

== ENCOUNTER → 2018-05-18 | Outpatient (CLI) | payer MEDICARE, MEDICAID | LOC: M RAD 08:35 | DX: K76.0 Fatty (change of) liver, not elsewhere classified (principal) | CPT/HCPCS: 76705 ==

== ENCOUNTER → 2018-06-05 | Outpatient (CLI) | payer MEDICARE, MEDICAID | LOC: M PAIN 10:00 | DX: M79.18 Myalgia, other site (principal); M47.817 Spondylosis without myelopathy or radiculopathy, lumbosacral region; N18.2 Chronic kidney disease, stage 2 (mild); E11.22 Type 2 diabetes mellitus with diabetic chronic kidney disease; E11.40 Type 2 diabetes mellitus with diabetic neuropathy, unspecified; E78.5 Hyperlipidemia, unspecified; K76.0 Fatty (change of) liver, not elsewhere classified; D50.9 Iron deficiency anemia, unspecified; G43.909 Migraine, unspecified, not intractable, without status migrainosus; J45.20 Mild intermittent asthma, uncomplicated; G47.33 Obstructive sleep apnea (adult) (pediatric); E55.9 Vitamin D deficiency, unspecified; M81.8 Other osteoporosis without current pathological fracture; M16.11 Unilateral primary osteoarthritis, right hip; Z79.82 Long term (current) use of aspirin; Z79.84 Long term (current) use of oral hypoglycemic drugs; Z79.899 Other long term (current) drug therapy; Z88.1 Allergy status to other antibiotic agents; Z88.8 Allergy status to other drugs, medicaments and biological substances; Z91.018 Allergy to other foods; Z91.02 Food additives allergy status | CPT/HCPCS: G0463 ==

== ENCOUNTER → 2018-09-05 | Outpatient (CLI) | payer MEDICARE, MEDICAID ==
[~2018-09-05] MED LIST changes: +/ADVA50050 INH; +/RISE35TA OR; +ADV250INH INH; +ADVA45AE IN; +ALBU17IN2 INH; +ASPI1TAB PO; +BABY81CH OR; +CALA240T PO; +CALC12502; +CHLO25TA PO; +CLAR5CHW; +CLAR5CHW OR; +CLARITIN D; +CRES20TA PO; +CRES5TAB OR; +EFFE150C OR; +EFFE150C2 PO; +EPI PEN SC; +FERR325T OR; +FLEXERIL OR; +FLOM0.4C39 PO; +FLUT1SPR2; +HYDR-3713 PO; +IMIT50TA PO; -ISOVUE-M 300 61% 15ML VIAL (Q9967) As Ordered; +LACT10SO29 PO; +LIDO1OIN2 TOP; +LIDO5DIS EXT; +LIDO5DIS41 TD; -LIDOCAINE 1% SDV INJ 30 ML VIAL As Ordered; +LOPERAMIDE OR; +LORA0.5T OR; +LOSA25TA14 PO; +LOVA1CAP17 PO; +LOVAZA OR; +METF-699 PO; +MS C30TA2 OR; +NAPR250T4 PO; +NAPR500T OR; +NASONEX; +OMEG100011 PO; +ONDA4TAB6 PO; +PREG100CA; +RECL5INJ2 IV; +RELP40TA PO; +RELPAX OR; +ROBA750T4 PO; +SING10TA31; +SING10TA31 OR; +SOLARAZE; +THERGRAN OR; +THERTAB30 PO; +TIZA4CAP PO; +TRAZ-160 PO; +TRAZ100T; +TRAZ50TA PO; +TRIA1CR TOP; +TRIC145T19 OR; +TYLE650T35 PO; +VENL150T PO; +VICO5TAB OR; +VITA-113 SL; +VITA1CAP25 PO; +VITATAB11 PO; +VOLT1GEL15 TD; +ZANA4CAP OR; +ZYRT10CA PO; +ZYRT10TA6 OR; +[UNRECOGNIZED DRUG - OTHER] OR; +amitiza PO; +drisdol PO; +lovaza PO; -methylPREDNISolone SUSP 40 MG/ML (DEPO-medrol) VIAL (J1030) As Ordered; +reclast INJ
--- NOTE | 2018-09-20 01:54 | ECWPNPC ---
PATIENT NAME: SHERON BACON : 1960 GENDER: MALE VISIT DATE: 09/05/2018 DISCHARGE DATE: 09/05/18956 VISIT LOCKED DATE TIME: PHYSICIAN: MERE ZURITA PHYSICIAN PAGER NO: [phone] RESOURCE: MERE ZURITA REASON FOR APPOINTMENT 1. 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 PAIN THE PATIENT DESCRIBES THE PAIN... FALL RISK SCREENING: SCREENING : NO FALLS IN THE PAST YEAR. CURRENT MEDICATIONS TAKING VITAMIN B-12 1000 MCG TABLET 1 TABLET ORALLY ONCE A DAY TAKING ASPIR-81 81 MG TABLET DELAYED RELEASE 1 TABLET ORALLY ONCE A DAY TAKING ADVAIR DISKUS 250-50 MCG/DOSE MISCELLANEOUS 1 INHALATION EVERY 12 HRS TAKING PROVENTIL HFA 108 (90 BASE) MCG/ACT AEROSOL SOLUTION 2 PUFFS NEEDED INHALATION EVERY 4 HRS PRN WHEEZE TAKING TENS UNIT ELECTRO PADS . . DIRECTED . NEEDED TAKING INDUSTRIAL BELT XL DX: 724.2 LUMBAR SUPPORT BELT DIRECTED . DAILY DURING WORK HOURS TAKING EPIPEN 2-OSEAS 0.3 MG/0.3ML (1:1000) DEVICE INJECTABLE INTRAMUSCULAR ONCE NEEDED TAKING RECLAST 5 MG/100ML SOLUTION DIRECTED INTRAVENOUS YEARLY TAKING VOLTAREN 1 % GEL DIRECTED TRANSDERMAL FOUR TIMES DAILY TAKING CHOLECALCIFEROL 2000 UNIT CAPSULE 1 CAPSULE ORALLY ONCE A DAY TAKING EFFEXOR XR 150 MG CAPSULE EXTENDED RELEASE 24 HOUR 2 CAPSULES WITH FOOD ORALLY DAILY TAKING ZYRTEC ALLERGY 10 MG TABLET 1 TABLET ORALLY ONCE A DAY TAKING RELPAX 40 MG TABLET 1 TABLET AT ONSET OF HEADACHE, MAY REPEAT AFTER 2 HOURS IF HEADACHE RETURNS ORALLY QD PRN HEADACHE TAKING AZELASTINE HCL 0.1 % SOLUTION 2 PUFFS IN EACH NOSTRIL NASALLY EVERY MORNING TAKING IRBESARTAN 300 MG TABLET 1 TABLET ORALLY EVERY MORNING TAKING MULTIVITAMINS OTC TABLET 1 TAB ORALLY DAILY TAKING TRAZODONE HCL 50 MG TABLET 2 TABLETS AT BEDTIME NEEDED ORALLY ONCE A DAY TAKING HYDROXYZINE HCL 25 MG TABLET 1 TABLET NEEDED ORALLY EVERY 6 HRS TAKING DICLOFENAC SODIUM 1 % GEL APPLY TO AFFECTED AREA(S) FOUR TIMES A DAY DIRECTED TAKING TYLENOL 325 MG TABLET 1 TABLET NEEDED ORALLY EVERY 4 HRS TAKING TRIAMCINOLONE ACETONIDE 0.1 % CREAM 1 APPLICATION TO AFFECTED AREA EXTERNALLY TWICE A DAY TAKING METFORMIN HCL ER 500 MG TABLET EXTENDED RELEASE 24 HOUR 2 TABLETS ORALLY TWICE DAILY TAKING LIDODERM 5 % PATCH 1 PATCH TO BOTH HIPS EXTERNALLY ONCE A DAY ON 12 HOURS OFF 12 HOURS TAKING HYDROCODONE-ACETAMINOPHEN 5-325 MG TABLET 1 TABLET NEEDED ORALLY EVERY 12 HRS PRN PAIN, MDD 2 TAKING LACTULOSE 10 GM/15ML SOLUTION 30 ML ORALLY ONCE A DAY - NEEDED TAKING ZANAFLEX 4 MG TABLET 1 TABLET ORALLY EVERY 8 HOURS NEEDED FOR MUSCLE SPASTICITY MDD:3 TAKING LOVAZA 1 GM CAPSULE 2 CAPSULES ORALLY TWICE A DAY TAKING ROSUVASTATIN CALCIUM 20 MG TABLET 1 TABLET ORALLY ONCE A DAY TAKING ZOFRAN 4 MG TABLET 1 TAB USUALLY 1-2X/W ORALLY ONE TO TWO TIMES A WEEK NEEDED TAKING FLOMAX 0.4 MG CAPSULE 1 CAPSULE ORALLY ONCE A DAY TAKING FLUTICASONE PROPIONATE 50 MCG/ACT SUSPENSION SPRAY TWO SPRAYS IN EACH NOSTRIL EVERY MORNING NASALLY EVERY MORNING NOT-TAKING LANCETS 1 LANCTES DEVICE DX:250.02 SUBCUTANEOUSLY DAILY NOT-TAKING BLOOD GLUCOSE TEST STRIP 1 ONE TOUCH TEST STRIP 250.02 SUBCUTANEOUSLY DAILY DISCONTINUED NORCO 5-325 MG TABLET 1 TABLET NEEDED ORALLY Q8H PRN MDD3, NOTES: DUPLICATE DISCONTINUED LOVAZA 1 GM CAPSULE 2 CAPSULES ORALLY TWICE A DAY, NOTES: DUPLICATE MEDICATION LIST REVIEWED AND RECONCILED WITH THE PATIENT PAST MEDICAL HISTORY LUMBAR DJD-DIFFUSE, 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, DIFFUSE L2/3 AND L5/S1 BULGES BY 07/2014 MRI CHRONIC KIDNEY DISEASE STAGE III HYPERLIPIDEMIA 2B OSTEOPOROSIS NONALCOHOLIC FATTY LIVER DISEASE-SEEN BY AUGUST 2010 CT, FS 2010 FS2 LEVEL OF 45/NEGATIVE W/U-09/2010-REINDL/SEEN 10/2010 LIVER BIOPSY-MILDLY 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 (STAGE 2-3/4)/ FS 2 17 ANEMIA SECONDARY TO IRON DEFICIENCY MIGRAINE HEADACHES, COMMON TYPE-DECEMBER 2010 NORMAL MRA OF THE BRAIN/01/2011 NORMAL CTA BRAIN HISTORY OF BILATERAL NEPHROLITHIASIS ASTHMA MILD PERSISTENT CONSTIPATION CHRONIC OBSTRUCTIVE SLEEP APNEA VITAMIN B12 DEFICIENCY MUSHROOM ANAPHYLAXIS DYSPEPSIA/GERD-03/2017 NORMAL EGD-R ALLERGIC RHINITIS CHRONIC LEUKOPENIA T2DM NID C PERIPHERAL NEUROPATHY HISTORY OF SBO, FEBRUARY 2010-LADI HISTORY OF NEPHROLITHIASIS-SEPTEMBER 2008, 24H URINE REMARKABLE FOR MILDLY ELEVATED CALCIUM AND URIC ACID ERECTILE DYSFUNCTION HISTORY OF HYPERCALCEMIA WITH SUPPRESSED PTH-SEPTEMBER 2009 WHOLE-BODY BONE SCAN WITH FOCAL UPTAKE BILATERAL RIBS AND COSTOVERTEBRAL JUNCTION/SEPTEMBER 2009 NEGATIVE WHOLE-BODY PET/CT SCAN AND BILATERAL RIB AND CHEST X-RAY ADENOMATOUS POLYP BY COLONOSCOPY OCTOBER 2010-REINDL/10/2011 NORMAL COLONOSCOPY-R DIMINUITIVE TUBULAR ADENOMA-R R HIP OA-MILD C CAM DEFORMITY SL FEMORAL HEAD BY 09/2013 BILATERAL TROCHANTERIC BURSITIS-MILD BY 09/2013 XRAY 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 SISTER ACQUIRED, A NURSE 10/2016 SINUS INFECTION DIABETES KIDNEY STONES VIT B 12 DEFICIENCY ARTHRITIS OF FOOT ALLERGIES CECLOR: HIVES: ALLERGY ERYTHROMYCIN: HIVES: ALLERGY PCN: HIVES: ALLERGY REGLAN: HIVES: ALLERGY MUSHROOMS: ANAPHYLAXIS: ALLERGY WATERMELON: HIVES: ALLERGY RED DYE #4: HIVES: ALLERGY SURGICAL HISTORY BACK SURGERY X 2 NASAL SURGERY X 2 RIGHT WRIST GANGLION APPENDECTOMY CHOLECYSTECTOMY ESWL 02/17/2017 COLONOSCOPY AND ENDOSCOPY- REINDL- 2 POLYPS 04/14/17 FAMILY HISTORY FATHER: MOTHER: ALIVE, HYPOTHYROIDISNM, DIAGNOSED WITH DIABETES, HYPERTENSION, STROKE, OTHER 2 BROTHER(S) , 3 SISTER(S) . SISTER HAD BLADDER CANCER. SOCIAL HISTORY GENERAL: TOBACCO USE ARE YOU A:NONSMOKER NEVER SMOKER ALCOHOL SCREENING DID YOU HAVE A DRINK CONTAINING ALCOHOL IN THE PAST YEAR?NO POINTS0 INTERPRETATIONNEGATIVE RECREATIONAL DRUG USE DRUG USE?NO CAFFEINE CAFFEINE USE?NO SEXUAL HX HAD SEX IN THE LAST 12 MONTHS (VAGINAL, ORAL, OR ANAL)?NO HAVE YOU EVER HAD AN STD?NO HIV / HEP-C SCREENING HIV TEST OFFERED TO PATIENT:YES DATE OFFERED:12/21/2016 TEST ACCEPTED:NO REASON:PATIENT DECLINED BROCHURE PROVIDED TO PATIENTYES HEP-C TEST OFFERED TO PATIENT:YES DATE OFFERED:12/21/2016 TEST ACCEPTED:NO REASON:PATIENT DECLINED BAPTISM BAPTISM YARSANISM LANGUAGE LANGUAGES SPOKEN:PARAGUAYAN EDUCATION LEVEL OF EDUCATION:NOT FINISHED COLLEGE LEARNING BARRIERS / SPECIAL NEEDS CHANGE FROM LAST VISIT?YES C/O FATIGUE BARRIERS TO LEARNING?NO HEARING IMPAIRED?NO VISION IMPAIRED?YES :CORRECTIVE LENSES COGNITIVELY IMPAIRED?NO READINESS TO LEARN?YES LEARNING PREFERENCES?NO LEARNING CAPABILITIES PRESENT?YES EMOTIONAL BARRIERS?NO SPECIAL DEVICES?NO SCRIPT COORDINATOR NEEDED?NO DOMESTIC VIOLENCE DO YOU FEEL SAFE IN YOUR ENVIRONMENT?YES OCCUPATION: DISABLED. DIET: CARBOHYDRATE CONTROLLED. EXERCISE: NO REGULAR EXERCISE. MARITAL STATUS: SINGLE. NEW PATIENT PAIN DIARY TODAY'S VISITNOTES PAIN CLINIC PFS, CLERGY, PUBLIC HEALTH REFERRALS PFS REFERRAL NEEDED?NO CLERGY REFERRAL NEEDED?NO PUBLIC HEALTH REFERRAL NEEDED?NO WAS THE PROVIDER NOTIFIED OF ANY PERTINENT INFO? N/A HAS THE PATIENT BEEN EDUCATED REGARDING HIS/HER PLAN OF CARE?YES PLEASE DOCUMENT ANY ADDTIONAL DETAILS. BILATERAL SACRO ILIAC JOINT INJ HAS THE PATIENT BEEN EDUCATED REGARDING PAIN, THE RISK FOR PAIN, THE IMPORTANCE OF EFFECTIVE PAIN MANAGEMENT, AND THE PAIN ASSESSMENT PROCESS?YES ADVANCE DIRECTIVE ADVANCE DIRECTIVE DISCUSSED WITH PATIENT:YES 09/05/18 PT DOES NOT HAVE ANY ADVANCED DIRECTIVES AND HE DECLINES INFORMATION ON HCP AT THIS TIME. AD REVIEWED 12/26/17 0955 BV09/05/18 REVIEWED WITH PT. AD. HOSPITALIZATION/MAJOR DIAGNOSTIC PROCEDURE SURGERIES REVIEW OF SYSTEMS REVIEWED BY: PROVIDER: MERE LIU . CONSTITUTIONAL: ANY CHANGE IN YOUR MEDICAL CONDITION? NO . CHILLS NO . FEVER NO . INFECTION: DO YOU HAVE NEW INFECTIONS? YES, SINUS INFECTION 3 WEEKS AGO TREATED WITH ANTIBIOTIC . DO YOU HAVE HISTORY OF MRSA? NO . MUSCULOSKELETAL: ANY NEW PATTERNS OF PAIN OR NUMBNESS? NO . GASTROENTEROLOGY: ANY NEW CHANGE IN BOWEL CONTROL? NO . GENITOURINARY: ANY NEW CHANGE IN BLADDER CONTROL? NO . IS THERE A CHANCE YOU COULD BE ? NO . HEMATOLOGY/LYMPH: DO YOU TAKE ANY BLOOD THINNERS? (FOR EXAMPLE- COUMADIN, PLAVIX, AGGRENOX, PLATEL, PRADAXA, OR XARELTO) NO . WHEN WAS YOUR LAST DOSE? DATE: TIME: . NEUROLOGY: HAVE YOU FALLEN IN THE PAST 12 MONTHS? NO . ANY NEW EXTREMITY NUMBNESS OR WEAKNESS? NO . CARDIOLOGY: DO YOU HAVE A PACEMAKER OR DEFIBRILLATOR? NO . RESPIRATORY: HAVE YOU BEEN SICK IN THE PAST WEEK? NO . FEVER NO . FLU LIKE SYMPTOMS? NO . COUGH NO . INTEGUMENTARY: DO YOU HAVE ANY RASHES OR OPEN SORES? NO . ALLERGIC/IMMUNO: ARE YOU ALLERGIC TO IV DYE? NO . ANY NEW ALLERGIES? NO . PSYCHIATRIC: DO YOU HAVE THOUGHTS OF HURTING YOURSELF OR SOMEONE ELSE? NO . ARE YOU ABUSED, NEGLECTED, OR IN AN UNSAFE ENVIRONMENT? NO . ENDOCRINOLOGY: ARE YOU DIABETIC? YES . OTHER: DO YOU NEED ANY PRESCRIPTIONS? YES . IF YES, PLEASE LIST: HYDROCODONE 5/325 . ANY NEW PROBLEMS WITH YOUR MEDICATIONS? NO . WHEN DID YOU LAST EAT? ____ . WHEN DID YOU LAST DRINK? ____ . WHAT DID YOU LAST DRINK? ____ . NAME OF PERSON DRIVING YOU HOME? ____ . DO YOU HAVE ANY OTHER QUESTIONS OR CONCERNS NO . VITAL SIGNS WT 215 LBS, HT 74 IN, BMI 27.60 INDEX, BP 134/85 MM HG, HR 88 /MIN, RR 16 /MIN, TEMP 96 F, OXYGEN SAT % 99, SAFE IN ENV? (Y/N) Y, REVIEWED BY: AD. EXAMINATION GENERAL EXAMINATION: LUNGS:LUNG SOUNDS ARE CLEAR. HEART:HEART RATE REGULAR. MUSCULOSKELETAL:*, MUSCLE STRENGTH TESTING 5/5 BILATERAL LOWER EXTREMITIES.TRIGGER POINT ELICITED OVER LEFT >RIGHT LUMBAR PARASPINAL WITH RESTRICTION OF ROJM NOTED.. ASSESSMENTS MYALGIA, OTHER SITE - M79.18 (PRIMARY) TREATMENT MYALGIA, OTHER SITE CONTINUE LIDODERM PATCH, 5 %, 1 PATCH TO BOTH HIPS, EXTERNALLY, ONCE A DAY ON 12 HOURS OFF 12 HOURS CONTINUE ZANAFLEX TABLET, 4 MG, 1 TABLET, ORALLY, EVERY 8 HOURS NEEDED FOR MUSCLE SPASTICITY MDD:3 REFILL HYDROCODONE-ACETAMINOPHEN TABLET, 5-325 MG, 1 TABLET NEEDED, ORALLY, EVERY 12 HRS PRN PAIN, MDD 2, 30 DAY(S), 10, REFILLS 0 NOTES: TPI LOW BACK L>R, ISTOP REGISTRY REVIEWED AND DEMONSTRATES COMPLLIANCE. URINE TOX [facility], [facility] NARCOTIC AGREEMENT WAS REVIEWED AND SIGNED TODAY BY THE PATIENT. SEE ATTACHED DOCUMENT FOR FULL DETAILS; SPECIFIC ISSUES WERE REVIEWED: 1) KEEP PAIN MEDS IN THEIR ORIGINAL BOTTLES AND ANY WEEKLY PLANNERS ARE TO BE BROUGHT TO THE PAIN CENTER AT EVERY VISIT. 2) THE PATIENT IS NOT TO INCREASE DOSING OR TIMING OF THEIR PAIN MEDICATION WITHOUT SPECIFIC DIRECTION OF THEIR PAIN CENTERPROVIDER (NOT ER OR OTHER PROVIDERS). 3) ALL PAIN MEDS ARE TO BE KEPT SECURED, IN A LOCKED BOX. 4) NO PAIN MEDS ARE TO BE SHARED WITH ANY OTHER PERSON FOR ANY REASON. 5) NO PAIN MEDS MAY BE TAKEN FROM ANY FRIENDS OR RELATIVES FOR ANY REASON 6) NO MEDS OR SUBSTANCES WHICH ARE NOT LEGAL ARE TO BE USED- NO MARIJUANA, NO COCAINE, AMPHETAMINES, HEROIN, OR OTHERS ARE EVER TO BE USED. 7)URINE TESTING IS DONE TO ACCOUNT FOR MEDS AND SUBSTANCES BEING TAKEN AND WILL BE DONE RANDOMLY., RISKS AND BENEFITS OF NARCOTIC/OPIOD MEDICATIONS WERE REVIEWED WITH PATIENT - THIS INCLUDES BUT IS NOT LIMITED TO RISK OF DEPENDANCE/DEVELOPMENT OF ADDICTION, MOOD DISTURBANCE AND DEPRESSION, OSTEOPOROSIS, HORMONAL AND LABIDAL CHANGES, RESPIRATORY DEPRESSION AND . PATIENT IS ADVISED NOT TO DRIVE OR DRINK ALCOHOL WHILE ON THESE MEDICATIONS. PROCEDURE CODES FA211 ESTABILISHED PATIENT [facility] CHARGE DISPOSITION & COMMUNICATION FOLLOW UP POST (REASON: TPI LOW BACK L>R) ELECTRONICALLY SIGNED BY NOE DUNCAN ON 09/18/2018 AT 01:14 PM EST DISCLAIMER : THIS IS A VISIT SUMMARY EXTRACTED FROM THE [employer] CHART. IT IS NOT A COPY OF THE [employer] PROGRESS NOTE. BRANDAN
== END ==
LOC: M PAIN 09:00
PROVIDERS: ATTEND Nurse Practitioner Family
DX: M79.18 Myalgia, other site (principal); N18.3 Chronic kidney disease, stage 3 (moderate); E78.5 Hyperlipidemia, unspecified; D50.9 Iron deficiency anemia, unspecified; M81.0 Age-related osteoporosis without current pathological fracture; K75.81 Nonalcoholic steatohepatitis (NASH); G43.009 Migraine without aura, not intractable, without status migrainosus; J45.30 Mild persistent asthma, uncomplicated; K59.09 Other constipation; G47.33 Obstructive sleep apnea (adult) (pediatric); E53.8 Deficiency of other specified B group vitamins; R10.13 Epigastric pain; K21.9 Gastro-esophageal reflux disease without esophagitis; E11.42 Type 2 diabetes mellitus with diabetic polyneuropathy; E11.22 Type 2 diabetes mellitus with diabetic chronic kidney disease; D72.819 Decreased white blood cell count, unspecified; Z87.442 Personal history of urinary calculi; N52.9 Male erectile dysfunction, unspecified; Z86.14 Personal history of Methicillin resistant Staphylococcus aureus infection; Z79.82 Long term (current) use of aspirin; Z79.891 Long term (current) use of opiate analgesic; Z79.84 Long term (current) use of oral hypoglycemic drugs; Z79.899 Other long term (current) drug therapy; Z88.1 Allergy status to other antibiotic agents; Z91.018 Allergy to other foods; Z88.8 Allergy status to other drugs, medicaments and biological substances; Z91.048 Other nonmedicinal substance allergy status

== ENCOUNTER → 2018-09-21 | Outpatient (CLI) | payer MEDICARE, MEDICAID ==
[~2018-09-21] MED LIST changes: +BUPIVACAINE HCL 0.25% 10 ML VIAL As Ordered ONE; +BUPIVACAINE HCL 0.25% 30 ML VIAL As Ordered ONE; +TRIAMCINOLONE ACETONIDE SUSP 40 MG/ML VIAL (J3301) As Ordered ONE
--- NOTE | 2018-10-08 23:38 | ECWPNPC ---
PATIENT NAME: SHERON BACON : 1960 GENDER: MALE VISIT DATE: 09/21/2018 DISCHARGE DATE: 09/21/18 1558 VISIT LOCKED DATE TIME: PHYSICIAN: SHAKILA PEDERSEN MD PHYSICIAN PAGER NO: [phone] RESOURCE: SHAKILA PEDERSEN MD REASON FOR APPOINTMENT 1. TPI LOW BACK L>R HISTORY OF PRESENT ILLNESS HISTORY OF PRESENT ILLNESS: PAIN THE PATIENT DESCRIBES THE PAIN... FALL RISK SCREENING: SCREENING : NO FALLS IN THE PAST YEAR. CURRENT MEDICATIONS TAKING VITAMIN B-12 1000 MCG TABLET 1 TABLET ORALLY ONCE A DAY, NOTES: 09/20/181899 TAKING ASPIR-81 81 MG TABLET DELAYED RELEASE 1 TABLET ORALLY ONCE A DAY, NOTES: 09/20/181899 TAKING ADVAIR DISKUS 250-50 MCG/DOSE MISCELLANEOUS 1 INHALATION EVERY 12 HRS, NOTES: 09/21/18 1100 TAKING PROVENTIL HFA 108 (90 BASE) MCG/ACT AEROSOL SOLUTION 2 PUFFS NEEDED INHALATION EVERY 4 HRS PRN WHEEZE, NOTES: NONE RECENTLY TAKING TENS UNIT ELECTRO PADS . . DIRECTED . NEEDED TAKING INDUSTRIAL BELT XL DX: 724.2 LUMBAR SUPPORT BELT DIRECTED . DAILY DURING WORK HOURS TAKING EPIPEN 2-OSEAS 0.3 MG/0.3ML (1:1000) DEVICE INJECTABLE INTRAMUSCULAR ONCE NEEDED, NOTES: NONE RECENTLY TAKING RECLAST 5 MG/100ML SOLUTION DIRECTED INTRAVENOUS YEARLY, NOTES: MORE THAN 1 YEAR AGO TAKING CHOLECALCIFEROL 2000 UNIT CAPSULE 1 CAPSULE ORALLY ONCE A DAY, NOTES: 09/20/181899 TAKING EFFEXOR XR 150 MG CAPSULE EXTENDED RELEASE 24 HOUR 2 CAPSULES WITH FOOD ORALLY DAILY, NOTES: 09/20/181899 TAKING ZYRTEC ALLERGY 10 MG TABLET 1 TABLET ORALLY ONCE A DAY, NOTES: 09/20/181899 TAKING RELPAX 40 MG TABLET 1 TABLET AT ONSET OF HEADACHE, MAY REPEAT AFTER 2 HOURS IF HEADACHE RETURNS ORALLY QD PRN HEADACHE, NOTES: NONE RECENTLY TAKING AZELASTINE HCL 0.1 % SOLUTION 2 PUFFS IN EACH NOSTRIL NASALLY EVERY MORNING, NOTES: 09/21/18 1100 TAKING IRBESARTAN 300 MG TABLET 1 TABLET ORALLY EVERY MORNING, NOTES: 09/20/18 0900 TAKING MULTIVITAMINS OTC TABLET 1 TAB ORALLY DAILY, NOTES: 3/6899 TAKING TRAZODONE HCL 50 MG TABLET 2 TABLETS AT BEDTIME NEEDED ORALLY ONCE A DAY, NOTES: MONTHS AGO TAKING HYDROXYZINE HCL 25 MG TABLET 1 TABLET NEEDED ORALLY EVERY 6 HRS, NOTES: 3 WEEKS AGO TAKING DICLOFENAC SODIUM 1 % GEL APPLY TO AFFECTED AREA(S) FOUR TIMES A DAY DIRECTED , NOTES: 1 WEEK AGO TAKING TYLENOL 325 MG TABLET 1 TABLET NEEDED ORALLY EVERY 4 HRS, NOTES: NONE RECENTLY TAKING TRIAMCINOLONE ACETONIDE 0.1 % CREAM 1 APPLICATION TO AFFECTED AREA EXTERNALLY TWICE A DAY, NOTES: 09/20/181899 TAKING METFORMIN HCL ER 500 MG TABLET EXTENDED RELEASE 24 HOUR 2 TABLETS ORALLY TWICE DAILY, NOTES: 09/20/181899 TAKING LACTULOSE 10 GM/15ML SOLUTION 30 ML ORALLY ONCE A DAY - NEEDED, NOTES: NONE RECENTLY TAKING LOVAZA 1 GM CAPSULE 2 CAPSULES ORALLY TWICE A DAY, NOTES: 09/20/182099 TAKING ROSUVASTATIN CALCIUM 20 MG TABLET 1 TABLET ORALLY ONCE A DAY, NOTES: 09/20/18899 TAKING ZOFRAN 4 MG TABLET 1 TAB USUALLY 1-2X/W ORALLY ONE TO TWO TIMES A WEEK NEEDED, NOTES: NONE RECENTLY TAKING FLOMAX 0.4 MG CAPSULE 1 CAPSULE ORALLY ONCE A DAY, NOTES: 09/20/181899 TAKING FLUTICASONE PROPIONATE 50 MCG/ACT SUSPENSION SPRAY TWO SPRAYS IN EACH NOSTRIL EVERY MORNING NASALLY EVERY BEDTIME, NOTES: 09/20/182099 TAKING LIDODERM 5 % PATCH 1 PATCH TO BOTH HIPS NEEDED EXTERNALLY ONCE A DAY ON 12 HOURS OFF 12 HOURS, NOTES: 3 DAYS AGO TAKING ZANAFLEX 4 MG TABLET 1 TABLET ORALLY EVERY 8 HOURS NEEDED FOR MUSCLE SPASTICITY MDD:3, NOTES: 09/20/181899 TAKING HYDROCODONE-ACETAMINOPHEN 5-325 MG TABLET 1 TABLET NEEDED ORALLY EVERY 12 HRS PRN PAIN, MDD 2, NOTES: 5 DAYS AGP TAKING BLOOD GLUCOSE TEST - STRIP DIRECTED SUBCUTANEOUSLY DX: E11.9 TWICE A DAY TAKING LANCETS - MISCELLANEOUS DIRECTED SUBCUTANEOUSLY DX: E11.9 BID NOT-TAKING VOLTAREN 1 % GEL DIRECTED TRANSDERMAL FOUR TIMES DAILY, NOTES: 1 WEEK AGO MEDICATION LIST REVIEWED AND RECONCILED WITH THE PATIENT PAST MEDICAL HISTORY LUMBAR DJD-DIFFUSE, 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, DIFFUSE L2/3 AND L5/S1 BULGES BY 07/2014 MRI CHRONIC KIDNEY DISEASE STAGE III HYPERLIPIDEMIA 2B OSTEOPOROSIS NONALCOHOLIC FATTY LIVER DISEASE-SEEN BY AUGUST 2010 CT, FS 2010 FS2 LEVEL OF 45/NEGATIVE W/U-09/2010-REINDL/SEEN 10/2010 LIVER BIOPSY-MILDLY 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 (STAGE 2-3/4) FS 2 17 ANEMIA SECONDARY TO IRON DEFICIENCY MIGRAINE HEADACHES, COMMON TYPE-DECEMBER 2010 NORMAL MRA OF THE BRAIN/01/2011 NORMAL CTA BRAIN HISTORY OF BILATERAL NEPHROLITHIASIS ASTHMA MILD PERSISTENT CONSTIPATION CHRONIC OBSTRUCTIVE SLEEP APNEA VITAMIN B12 DEFICIENCY MUSHROOM ANAPHYLAXIS DYSPEPSIA/GERD-03/2017 NORMAL EGD-R ALLERGIC RHINITIS CHRONIC LEUKOPENIA T2DM NID C PERIPHERAL NEUROPATHY HISTORY OF SBO, FEBRUARY 2010-LADI HISTORY OF NEPHROLITHIASIS-SEPTEMBER 2008, 24H URINE REMARKABLE FOR MILDLY ELEVATED CALCIUM AND URIC ACID ERECTILE DYSFUNCTION HISTORY OF HYPERCALCEMIA WITH SUPPRESSED PTH-SEPTEMBER 2009 WHOLE-BODY BONE SCAN WITH FOCAL UPTAKE BILATERAL RIBS AND COSTOVERTEBRAL JUNCTION/SEPTEMBER 2009 NEGATIVE WHOLE-BODY PET/CT SCAN AND BILATERAL RIB AND CHEST X-RAY ADENOMATOUS POLYP BY COLONOSCOPY OCTOBER 2010-REINDL/10/2011 NORMAL COLONOSCOPY-R/ DIMINUITIVE TUBULAR ADENOMA-R R HIP OA-MILD C CAM DEFORMITY SL FEMORAL HEAD BY 09/2013 BILATERAL TROCHANTERIC BURSITIS-MILD BY 09/2013 XRAY 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 SISTER ACQUIRED, A NURSE 10/2016 - STATES HAS HAD 3 NEGATIVE NASAL CULTURES SINUS INFECTION DIABETES KIDNEY STONES VIT B 12 DEFICIENCY ARTHRITIS OF FOOT DEPRESSION ALLERGIES CECLOR: HIVES - ALLERGY ERYTHROMYCIN: HIVES - ALLERGY PCN: HIVES - ALLERGY REGLAN: HIVES - ALLERGY MUSHROOMS: ANAPHYLAXIS - ALLERGY WATERMELON: HIVES - ALLERGY RED DYE #4: HIVES - ALLERGY SURGICAL HISTORY BACK SURGERY X 2 NASAL SURGERY X 2 RIGHT WRIST GANGLION APPENDECTOMY CHOLECYSTECTOMY ESWL 02/17/2017 COLONOSCOPY AND ENDOSCOPY- REINDL- 2 POLYPS 04/14/17 BONE REMOVED 5TH TOE LEFT FOOT 2013 FAMILY HISTORY FATHER: MOTHER: ALIVE, HYPOTHYROIDISNM, DIAGNOSED WITH OTHER, DIABETES, HYPERTENSION, STROKE 2 BROTHER(S) , 3 SISTER(S) . SISTER HAD BLADDER CANCER. SOCIAL HISTORY GENERAL: TOBACCO USE ARE YOU A:NONSMOKER NEVER SMOKER ALCOHOL SCREENING DID YOU HAVE A DRINK CONTAINING ALCOHOL IN THE PAST YEAR?NO POINTS0 INTERPRETATIONNEGATIVE RECREATIONAL DRUG USE DRUG USE?NO CAFFEINE CAFFEINE USE?YES HOW OFTEN AND HOW MUCH? 1 CUP OF COFFEE A DAY SEXUAL HX HAD SEX IN THE LAST 12 MONTHS (VAGINAL, ORAL, OR ANAL)?NO HAVE YOU EVER HAD AN STD?NO HIV / HEP-C SCREENING HIV TEST OFFERED TO PATIENT:YES DATE OFFERED:12/21/2016 TEST ACCEPTED:NO REASON:PATIENT DECLINED BROCHURE PROVIDED TO PATIENTYES HEP-C TEST OFFERED TO PATIENT:YES DATE OFFERED:12/21/2016 TEST ACCEPTED:NO REASON:PATIENT DECLINED [employer] LANGUAGES SPOKEN:TURKISH EDUCATION LEVEL OF EDUCATION:NOT FINISHED COLLEGE LEARNING BARRIERS / SPECIAL NEEDS CHANGE FROM LAST VISIT?YES C/O FATIGUE BARRIERS TO LEARNING?NO HEARING IMPAIRED?NO VISION IMPAIRED?YES :CORRECTIVE LENSES COGNITIVELY IMPAIRED?NO READINESS TO LEARN?YES LEARNING PREFERENCES?NO LEARNING CAPABILITIES PRESENT?YES EMOTIONAL BARRIERS?NO SPECIAL DEVICES?NO 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 DIET: CARBOHYDRATE CONTROLLED. EXERCISE: NO REGULAR EXERCISE. MARITAL STATUS: SINGLE. NEW PATIENT PAIN DIARY TODAY'S VISITNOTES PAIN CLINIC PFS, CLERGY, PUBLIC HEALTH REFERRALS PFS REFERRAL NEEDED?NO CLERGY REFERRAL NEEDED?NO PUBLIC HEALTH REFERRAL NEEDED?NO WAS THE PROVIDER NOTIFIED OF ANY PERTINENT INFO? N/A HAS THE PATIENT BEEN EDUCATED REGARDING HIS/HER PLAN OF CARE?YES PLEASE DOCUMENT ANY ADDTIONAL DETAILS. BILATERAL SACRO ILIAC JOINT INJ HAS THE PATIENT BEEN EDUCATED REGARDING PAIN, THE RISK FOR PAIN, THE IMPORTANCE OF EFFECTIVE PAIN MANAGEMENT, AND THE PAIN ASSESSMENT PROCESS?YES ADVANCE DIRECTIVE ADVANCE DIRECTIVE DISCUSSED WITH PATIENT:YES 09/05/18 PT DOES NOT HAVE ANY ADVANCED DIRECTIVES AND HE DECLINES INFORMATION ON HCP AT THIS TIME. AD REVIEWED 12/26/17 0955 BV09/05/18 REVIEWED WITH PT. AD. HOSPITALIZATION/MAJOR DIAGNOSTIC PROCEDURE SURGERIES REVIEW OF SYSTEMS REVIEWED BY: PROVIDER: . CONSTITUTIONAL: ANY CHANGE IN YOUR MEDICAL CONDITION? NO . CHILLS NO . FEVER NO . INFECTION: DO YOU HAVE NEW INFECTIONS? NO . DO YOU HAVE HISTORY OF MRSA? NO . MUSCULOSKELETAL: ANY NEW PATTERNS OF PAIN OR NUMBNESS? NO . GASTROENTEROLOGY: ANY NEW CHANGE IN BOWEL CONTROL? NO . GENITOURINARY: ANY NEW CHANGE IN BLADDER CONTROL? NO . IS THERE A CHANCE YOU COULD BE ? NO . HEMATOLOGY/LYMPH: DO YOU TAKE ANY BLOOD THINNERS? (FOR EXAMPLE- COUMADIN, PLAVIX, AGGRENOX, PLATEL, PRADAXA, OR XARELTO) NO . WHEN WAS YOUR LAST DOSE? DATE: TIME: . NEUROLOGY: HAVE YOU FALLEN IN THE PAST 12 MONTHS? NO . ANY NEW EXTREMITY NUMBNESS OR WEAKNESS? YES . CARDIOLOGY: DO YOU HAVE A PACEMAKER OR DEFIBRILLATOR? NO . RESPIRATORY: HAVE YOU BEEN SICK IN THE PAST WEEK? NO . FEVER NO . FLU LIKE SYMPTOMS? NO . COUGH NO . INTEGUMENTARY: DO YOU HAVE ANY RASHES OR OPEN SORES? NO . ALLERGIC/IMMUNO: ARE YOU ALLERGIC TO IV DYE? NO . ANY NEW ALLERGIES? NO . PSYCHIATRIC: DO YOU HAVE THOUGHTS OF HURTING YOURSELF OR SOMEONE ELSE? NO . ARE YOU ABUSED, NEGLECTED, OR IN AN UNSAFE ENVIRONMENT? NO . ENDOCRINOLOGY: ARE YOU DIABETIC? YES . OTHER: DO YOU NEED ANY PRESCRIPTIONS? NO . IF YES, PLEASE LIST: ____ . ANY NEW PROBLEMS WITH YOUR MEDICATIONS? NO . WHEN DID YOU LAST EAT? 09-20-18 1800 . WHEN DID YOU LAST DRINK? 09-21-18 1100 . WHAT DID YOU LAST DRINK? SODA . NAME OF PERSON DRIVING YOU HOME? ANN GAMEZ . DO YOU HAVE ANY OTHER QUESTIONS OR CONCERNS NO . VITAL SIGNS WT 250 LBS, HT 74 IN, BMI 32.09 INDEX, BP 162/97 MM HG, HR 81 /MIN, RR 18 /MIN, TEMP 96.6 F, OXYGEN SAT % 100%, NA INITIALS SC 13:58, REVIEWED BY: LS. ASSESSMENTS MYALGIA, OTHER SITE - M79.18 (PRIMARY) PROCEDURES PN TRIGGER POINT INJECTION WITH STEROIDS PRE PROCEDURE DIAGNOSIS 1. MYALGIA 2. PAIN AT BILATERAL LOW BACK AREA POST PROCEDURE DIAGNOSIS 1. MYALGIA 2. PAIN AT BILATERAL LOW BACK AREA PROCEDURE TRIGGER POINT INJECTION AT BILATERAL LOW BACK AREA SURGEON DR. SHAKILA PEDERSEN ELECTROMEDICAL EQUIPMENT REPAIRER NONE ANESTHESIA LOCAL PRE PROCEDURE NOTE THE PATIENT HAS A HISTORY OF CHRONIC PAIN AT THE RIGHT AND LEFT LOW BACK AREA. I EVALUATE THE PATIENT AND REVIEWED THE CHART. THERE IS EVIDENCE OF BANDS OF TISSUE WITH RESTRICTION OF MOVEMENT AND PRESENCE OF TRIGGER POINT AT THE AFFECTED AREA. I WENT OVER THE RISKS, ALTERNATIVES, AND BENEFITS ASSOCIATED WITH THIS PROCEDURE. THE PATIENT WOULD LIKE TO PROCEED AND GIVE CONSENT TO PERFORMED THE PROCEDURE. THE PATIENT DENIES UNEXPLAINABLE WEIGHT LOSS, FEVER, CHILLS, OR NEW CHANGES IN URINARY OR BOWEL CONTROL DESCRIPTION OF PROCEDURE THE PATIENT WAS BROUGHT TO THE PROCEDURE ROOM AND PLACED IN THE SITTING POSITION. THE AREA WAS CLEANED WITH ALCOHOL. THE PROCEDURE WAS DONE USING ASEPTIC STERILE TECHNIQUE. I CHECKED LATERALITY AND THE LEVEL WHERE THE PROCEDURE WAS GOING TO BE PERFORMED WITH THE PATIENT AND THE SUPPORTING STAFF AT THE MOMENT OF THE TIME OUT IN THE PROCEDURE ROOM. USING A 25-GAUGE NEEDLE, TRIGGER POINTS WERE INJECTED AT THE RIGHT AND LEFT LOW BACK AREA WITH A TOTAL OF 40 ML OF BUPIVACAINE 0.25% AND KENALOG 40 MG. THERE WAS NO EVIDENCE OF BLOOD, PARESTHESIA OR CEREBROSPINAL FLUID DURING THE PROCEDURE. THE PATIENT WAS SENT TO THE RECOVERY ROOM. THE PATIENT WAS MOVING THE EXTREMITIES AND DOING WELL. THERE WAS NO COMPLICATION DURING THE PROCEDURE POST PROCEDURE NOTE THE PATIENT WILL BE SEEN IN A FOLLOW UP IN THE NEXT FEW WEEKS. INSTRUCTIONS WERE GIVEN, QUESTIONS WERE ANSWERED, AND THE PATIENT EXPRESSED UNDERSTANDING AND AGREES WITH THE PLAN. I, VY CALABRESE, DOCUMENTED THE ABOVE INFORMATION ACTING A SCRIBE FOR DR. PEDERSEN. I HAVE REVIEWED THE ABOVE DOCUMENT, WRITTEN BY VY DUNNE AND I VERIFY THAT IT IS ACCURATE. PROCEDURE CODES 25523 INJ TRIGGER POINT / MUSCL DISPOSITION & COMMUNICATION FOLLOW UP 3 WEEKS ELECTRONICALLY SIGNED BY SHAKILA PEDERSEN MD, MD ON 10/08/2018 AT 07:42 PM EDT DISCLAIMER : THIS IS A VISIT SUMMARY EXTRACTED FROM THE [employer] CHART. IT IS NOT A COPY OF THE [employer] PROGRESS NOTE. MTDD
== END ==
LOC: M PAIN 14:00
PROVIDERS: ATTEND Anesthesiology
DX: M79.18 Myalgia, other site (principal); M54.5 Low back pain; E11.22 Type 2 diabetes mellitus with diabetic chronic kidney disease; E11.40 Type 2 diabetes mellitus with diabetic neuropathy, unspecified; N18.2 Chronic kidney disease, stage 2 (mild); E78.5 Hyperlipidemia, unspecified; M81.0 Age-related osteoporosis without current pathological fracture; D50.9 Iron deficiency anemia, unspecified; K76.0 Fatty (change of) liver, not elsewhere classified; G43.909 Migraine, unspecified, not intractable, without status migrainosus; J45.30 Mild persistent asthma, uncomplicated; G47.33 Obstructive sleep apnea (adult) (pediatric); D72.819 Decreased white blood cell count, unspecified; F32.9 Major depressive disorder, single episode, unspecified; Z79.82 Long term (current) use of aspirin; Z79.84 Long term (current) use of oral hypoglycemic drugs; Z79.899 Other long term (current) drug therapy; Z88.1 Allergy status to other antibiotic agents; Z88.8 Allergy status to other drugs, medicaments and biological substances; Z91.02 Food additives allergy status; Z91.018 Allergy to other foods
CPT/HCPCS: 20552; J3301

== ENCOUNTER → 2018-11-08 | Outpatient (CLI) | payer MEDICARE ==
[~2018-11-08] MED LIST changes: -/ADVA50050 INH; +ADVA1AER2 INH; -ASPI1TAB PO; +ASPI81TA26 PO; -BUPIVACAINE HCL 0.25% 10 ML VIAL As Ordered ONE; -BUPIVACAINE HCL 0.25% 30 ML VIAL As Ordered ONE; +CHLO125TA PO; -CRES20TA PO; +CRES20TA2 PO; +TRIA0.1C60 TOP; -TRIA1CR TOP; -TRIAMCINOLONE ACETONIDE SUSP 40 MG/ML VIAL (J3301) As Ordered ONE; -VENL150T PO; +VENL150T14 PO
[2018-11-08 13:47] LABS: BASO # 0.1 10^3/uL (0.0-0.2); BASO % 0.9 % (0.0-1.0); EOS # 0.1 10^3/uL (0.0-0.50); EOS % 2.4 % (0.0-3.0); HEMATOCRIT 40.4 % (42.0-52.0); HEMOGLOBIN 13.4 g/dl (13.5-17.5); LYMPH # 0.7 10^3/uL (1.5-4.5); LYMPH % 13.3 % (24.0-44.0); MEAN CORPUSCULAR HEMOGLOBIN 29.1 pg (27.0-33.0); MEAN CORPUSCULAR HGB CONC 33.2 g/dl (32.0-36.5); MEAN CORPUSCULAR VOLUME 87.8 fl (80.0-96.0); MONO # 0.4 10^3/uL (0.0-0.8); MONO % 7.9 % (0.0-5.0); NEUTROPHILS # 4.1 10^3/uL (1.8-7.7); NEUTROPHILS % 75.3 % (36.0-66.0); PLATELET COUNT, AUTOMATED 202 10^3/uL (150-450); WHITE BLOOD COUNT 5.4 10^3/uL (4.0-10.0)
[2018-11-08 14:53] LABS: ALT/SGPT 74 U/L (12-78); BILIRUBIN,TOTAL 0.4 MG/DL (0.2-1.0); BLOOD UREA NITROGEN 16 MG/DL (7-18); CALCIUM LEVEL 9.3 MG/DL (8.5-10.1); CARBON DIOXIDE LEVEL 24 MEQ/L (21-32); CHLORIDE LEVEL 107 MEQ/L (98-107); CHOLESTEROL LEVEL 73 MG/DL (<200); CHOLESTEROL RISK RATIO 2.607 (<5); CREATININE FOR GFR 0.96 MG/DL (0.70-1.30); FREE T4 1.03 NG/DL (0.76-1.46); GLOMERULAR FILTRATION RATE > 60.0 (>56); GLUCOSE, FASTING 111 MG/DL (70-100); HDL CHOLESTEROL 28 MG/DL (>40); LDL CHOLESTEROL 16 MG/DL (<100); NON-HDL-C 45 MG/DL; POTASSIUM SERUM 5.5 MEQ/L (3.5-5.1); SODIUM LEVEL 139 MEQ/L (136-145); TOTAL PROTEIN 7.5 GM/DL (6.4-8.2); TRIGLYCERIDES LEVEL 145 MG/DL (<150)
[2018-11-08 15:47] LABS: CREATININE, URINE 76.6 MG/DL; MALB URINE SIEMENS 5.8 MG/L; MAU/CREAT RATIO 7.5 MCG/MG (0.0-30.0)
[2018-11-08 16:12] LABS: HEMOGLOBIN A1c 5.5 %
== END ==
LOC: M SMT 09:34
PROVIDERS: ATTEND Physician Assistant
DX: E11.9 Type 2 diabetes mellitus without complications (principal); N40.1 Benign prostatic hyperplasia with lower urinary tract symptoms
CPT/HCPCS: 36415; 80053; 80061; 82043; 82652; 83036; 84439; 84443; 85025; G0103

== ENCOUNTER → 2018-11-23 | Outpatient (CLI) | payer MEDICARE, MEDICAID ==
--- NOTE | 2018-12-13 01:08 | ECWPNPC ---
PATIENT NAME: SHERON BACON : 1960 GENDER: MALE VISIT DATE: 11/23/2018 DISCHARGE DATE: 11/23/18 1451 VISIT LOCKED DATE TIME: PHYSICIAN: MERE ZURITA PHYSICIAN PAGER NO: [phone] RESOURCE: MERE ZURITA REASON FOR APPOINTMENT 1. POST TPI HISTORY OF PRESENT ILLNESS HISTORY OF PRESENT ILLNESS: HERE FOR POST PROCEDURE F/U.HAD TPI LOW BACK ON 09/21/18.REPORTING SIGNIFICANT REDUCTION IN PAIN THAT CONTINUES TODAY.RATING PAIN VAS 3/10.WILL BE MOVING TO [place] AT END OF MONTH. PAIN THE PATIENT DESCRIBES THE PAIN... FALL RISK SCREENING: SCREENING :NO FALLS REPORTED IN THE LAST YEAR CURRENT MEDICATIONS TAKING VITAMIN B-12 1000 MCG TABLET 1 TABLET ORALLY ONCE A DAY, NOTES: 09/20/181899 TAKING ASPIR-81 81 MG TABLET DELAYED RELEASE 1 TABLET ORALLY ONCE A DAY, NOTES: 09/20/181899 TAKING ADVAIR DISKUS 250-50 MCG/DOSE MISCELLANEOUS 1 INHALATION EVERY 12 HRS, NOTES: 09/21/18 1100 TAKING PROVENTIL HFA 108 (90 BASE) MCG/ACT AEROSOL SOLUTION 2 PUFFS NEEDED INHALATION EVERY 4 HRS PRN WHEEZE, NOTES: NONE RECENTLY TAKING TENS UNIT ELECTRO PADS . . DIRECTED . NEEDED TAKING INDUSTRIAL BELT XL DX: 724.2 LUMBAR SUPPORT BELT DIRECTED . DAILY DURING WORK HOURS TAKING EPIPEN 2-OSEAS 0.3 MG/0.3ML (1:1000) DEVICE INJECTABLE INTRAMUSCULAR ONCE NEEDED, NOTES: NONE RECENTLY TAKING RECLAST 5 MG/100ML SOLUTION DIRECTED INTRAVENOUS YEARLY, NOTES: MORE THAN 1 YEAR AGO TAKING CHOLECALCIFEROL 2000 UNIT CAPSULE 1 CAPSULE ORALLY ONCE A DAY, NOTES: 09/20/181899 TAKING EFFEXOR XR 150 MG CAPSULE EXTENDED RELEASE 24 HOUR 2 CAPSULES WITH FOOD ORALLY DAILY, NOTES: 09/20/181899 TAKING ZYRTEC ALLERGY 10 MG TABLET 1 TABLET ORALLY ONCE A DAY, NOTES: 09/20/181899 TAKING RELPAX 40 MG TABLET 1 TABLET AT ONSET OF HEADACHE, MAY REPEAT AFTER 2 HOURS IF HEADACHE RETURNS ORALLY QD PRN HEADACHE, NOTES: NONE RECENTLY TAKING AZELASTINE HCL 0.1 % SOLUTION 2 PUFFS IN EACH NOSTRIL NASALLY EVERY MORNING, NOTES: 09/21/18 1100 TAKING IRBESARTAN 300 MG TABLET 1 TABLET ORALLY EVERY MORNING, NOTES: 09/20/18899 TAKING MULTIVITAMINS OTC TABLET 1 TAB ORALLY DAILY, NOTES: 09/20/18899 TAKING TRAZODONE HCL 50 MG TABLET 2 TABLETS AT BEDTIME NEEDED ORALLY ONCE A DAY, NOTES: MONTHS AGO TAKING HYDROXYZINE HCL 25 MG TABLET 1 TABLET NEEDED ORALLY EVERY 6 HRS, NOTES: 3 WEEKS AGO TAKING DICLOFENAC SODIUM 1 % GEL APPLY TO AFFECTED AREA(S) FOUR TIMES A DAY DIRECTED , NOTES: 1 WEEK AGO TAKING TYLENOL 325 MG TABLET 1 TABLET NEEDED ORALLY EVERY 4 HRS, NOTES: NONE RECENTLY TAKING TRIAMCINOLONE ACETONIDE 0.1 % CREAM 1 APPLICATION TO AFFECTED AREA EXTERNALLY TWICE A DAY, NOTES: 09/20/181899 TAKING METFORMIN HCL ER 500 MG TABLET EXTENDED RELEASE 24 HOUR 2 TABLETS ORALLY TWICE DAILY, NOTES: 09/20/181899 TAKING LOVAZA 1 GM CAPSULE 2 CAPSULES ORALLY TWICE A DAY, NOTES: 09/20/182099 TAKING ROSUVASTATIN CALCIUM 20 MG TABLET 1 TABLET ORALLY ONCE A DAY, NOTES: 09/20/18899 TAKING ZOFRAN 4 MG TABLET 1 TAB USUALLY 1-2X/W ORALLY ONE TO TWO TIMES A WEEK NEEDED, NOTES: NONE RECENTLY TAKING FLOMAX 0.4 MG CAPSULE 1 CAPSULE ORALLY ONCE A DAY, NOTES: 09/20/181899 TAKING FLUTICASONE PROPIONATE 50 MCG/ACT SUSPENSION SPRAY TWO SPRAYS IN EACH NOSTRIL EVERY MORNING NASALLY EVERY BEDTIME, NOTES: 09/20/182099 TAKING LIDODERM 5 % PATCH 1 PATCH TO BOTH HIPS NEEDED EXTERNALLY ONCE A DAY ON 12 HOURS OFF 12 HOURS, NOTES: 3 DAYS AGO TAKING ZANAFLEX 4 MG TABLET 1 TABLET ORALLY EVERY 8 HOURS NEEDED FOR MUSCLE SPASTICITY MDD:3, NOTES: 09/20/181899 TAKING HYDROCODONE-ACETAMINOPHEN 5-325 MG TABLET 1 TABLET NEEDED ORALLY EVERY 12 HRS PRN PAIN, MDD 2, NOTES: 5 DAYS AGP TAKING BLOOD GLUCOSE TEST - STRIP DIRECTED SUBCUTANEOUSLY DX: E11.9 TWICE A DAY TAKING LANCETS - MISCELLANEOUS DIRECTED SUBCUTANEOUSLY DX: E11.9 BID NOT-TAKING LACTULOSE 10 GM/15ML SOLUTION 30 ML ORALLY ONCE A DAY - NEEDED, NOTES: NONE RECENTLY NOT-TAKING VOLTAREN 1 % GEL DIRECTED TRANSDERMAL FOUR TIMES DAILY, NOTES: 1 WEEK AGO MEDICATION LIST REVIEWED AND RECONCILED WITH THE PATIENT PAST MEDICAL HISTORY LUMBAR DJD-DIFFUSE, 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, DIFFUSE L2/3 AND L5/S1 BULGES BY 07/2014 MRI CHRONIC KIDNEY DISEASE STAGE III HYPERLIPIDEMIA 2B OSTEOPOROSIS NONALCOHOLIC FATTY LIVER DISEASE-SEEN BY AUGUST 2010 CT, FS 2010 FS2 LEVEL OF 45/NEGATIVE W/U-09/2010-REINDL/SEEN 10/2010 LIVER BIOPSY-MILDLY 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 (STAGE 2-3/4) FS 2 17 ANEMIA SECONDARY TO IRON DEFICIENCY MIGRAINE HEADACHES, COMMON TYPE-DECEMBER 2010 NORMAL MRA OF THE BRAIN/01/2011 NORMAL CTA BRAIN HISTORY OF BILATERAL NEPHROLITHIASIS ASTHMA MILD PERSISTENT CONSTIPATION CHRONIC OBSTRUCTIVE SLEEP APNEA VITAMIN B12 DEFICIENCY MUSHROOM ANAPHYLAXIS DYSPEPSIA/GERD-03/2017 NORMAL EGD-R ALLERGIC RHINITIS CHRONIC LEUKOPENIA T2DM NID C PERIPHERAL NEUROPATHY HISTORY OF SBO, FEBRUARY 2010-LADI HISTORY OF NEPHROLITHIASIS-SEPTEMBER 2008, 24H URINE REMARKABLE FOR MILDLY ELEVATED CALCIUM AND URIC ACID ERECTILE DYSFUNCTION HISTORY OF HYPERCALCEMIA WITH SUPPRESSED PTH-SEPTEMBER 2009 WHOLE-BODY BONE SCAN WITH FOCAL UPTAKE BILATERAL RIBS AND COSTOVERTEBRAL JUNCTION/SEPTEMBER 2009 NEGATIVE WHOLE-BODY PET/CT SCAN AND BILATERAL RIB AND CHEST X-RAY ADENOMATOUS POLYP BY COLONOSCOPY OCTOBER 2010-REINDL/10/2011 NORMAL COLONOSCOPY-R/ DIMINUITIVE TUBULAR ADENOMA-R R HIP OA-MILD C CAM DEFORMITY SL FEMORAL HEAD BY 09/2013 BILATERAL TROCHANTERIC BURSITIS-MILD BY 09/2013 XRAY 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 SISTER ACQUIRED, A NURSE 10/2016 - STATES HAS HAD 3 NEGATIVE NASAL CULTURES SINUS INFECTION DIABETES KIDNEY STONES VIT B 12 DEFICIENCY ARTHRITIS OF FOOT DEPRESSION ALLERGIES CECLOR: HIVES - ALLERGY ERYTHROMYCIN: HIVES - ALLERGY PCN: HIVES - ALLERGY REGLAN: HIVES - ALLERGY MUSHROOMS: ANAPHYLAXIS - ALLERGY WATERMELON: HIVES - ALLERGY RED DYE #4: HIVES - ALLERGY SURGICAL HISTORY BACK SURGERY X 2 NASAL SURGERY X 2 RIGHT WRIST GANGLION APPENDECTOMY CHOLECYSTECTOMY ESWL 02/17/2017 COLONOSCOPY AND ENDOSCOPY- REINDL- 2 POLYPS 04/14/17 BONE REMOVED 5TH TOE LEFT FOOT 2013 FAMILY HISTORY FATHER: MOTHER: ALIVE, HYPOTHYROIDISNM, DIAGNOSED WITH DIABETES, HYPERTENSION, STROKE, OTHER 2 BROTHER(S) , 3 SISTER(S) . SISTER HAD BLADDER CANCER. SOCIAL HISTORY GENERAL: TOBACCO USE ARE YOU A:NONSMOKER NEVER SMOKER HIV / HEP-C SCREENING HIV TEST OFFERED TO PATIENT:YES DATE OFFERED:12/21/2016 TEST ACCEPTED:NO REASON:PATIENT DECLINED BROCHURE PROVIDED TO PATIENTYES HEP-C TEST OFFERED TO PATIENT:YES DATE OFFERED:12/21/2016 TEST ACCEPTED:NO REASON:PATIENT DECLINED EDUCATION LEVEL OF EDUCATION:NOT FINISHED COLLEGE DIET: CARBOHYDRATE CONTROLLED. LANGUAGE LANGUAGES SPOKEN:LITHUANIAN DOMESTIC VIOLENCE DO YOU FEEL SAFE IN YOUR ENVIRONMENT?YES NEW PATIENT PAIN DIARY TODAY'S VISITNOTES RECREATIONAL DRUG USE DRUG USE?NO EXERCISE: NO REGULAR EXERCISE. LEARNING BARRIERS / SPECIAL NEEDS CHANGE FROM LAST VISIT?YES C/O FATIGUE BARRIERS TO LEARNING?NO HEARING IMPAIRED?NO VISION IMPAIRED?YES :CORRECTIVE LENSES COGNITIVELY IMPAIRED?NO READINESS TO LEARN?YES LEARNING PREFERENCES?NO LEARNING CAPABILITIES PRESENT?YES EMOTIONAL BARRIERS?NO SPECIAL DEVICES?NO SPORTS PSYCHOLOGIST NEEDED?NO PAIN CLINIC PFS, CLERGY, PUBLIC HEALTH REFERRALS PFS REFERRAL NEEDED?NO CLERGY REFERRAL NEEDED?NO PUBLIC HEALTH REFERRAL NEEDED?NO WAS THE PROVIDER NOTIFIED OF ANY PERTINENT INFO? N/A HAS THE PATIENT BEEN EDUCATED REGARDING HIS/HER PLAN OF CARE?YES PLEASE DOCUMENT ANY ADDTIONAL DETAILS. BILATERAL SACRO ILIAC JOINT INJ HAS THE PATIENT BEEN EDUCATED REGARDING PAIN, THE RISK FOR PAIN, THE IMPORTANCE OF EFFECTIVE PAIN MANAGEMENT, AND THE PAIN ASSESSMENT PROCESS?YES CAFFEINE CAFFEINE USE?YES HOW OFTEN AND HOW MUCH? 1 CUP OF COFFEE A DAY ADVANCE DIRECTIVE ADVANCE DIRECTIVE DISCUSSED WITH PATIENT:YES PT DOES NOT HAVE ANY ADVANCED DIRECTIVES AND HE DECLINES INFORMATION ON HCP AT THIS TIME. HINDU HINDU CONFUCIANISM MARITAL STATUS: SINGLE. ALCOHOL SCREENING DID YOU HAVE A DRINK CONTAINING ALCOHOL IN THE PAST YEAR?NO POINTS0 INTERPRETATIONNEGATIVE OCCUPATION: DISABLED. SEXUAL HX HAD SEX IN THE LAST 12 MONTHS (VAGINAL, ORAL, OR ANAL)?NO HAVE YOU EVER HAD AN STD?NO REVIEWED 12/26/17 0955 BV09/05/18 REVIEWED WITH PT. 11/23/18 1420 LAS REVIEWED WITH PT. HOSPITALIZATION/MAJOR DIAGNOSTIC PROCEDURE SURGERIES REVIEW OF SYSTEMS REVIEWED BY: PROVIDER: MERE LIU . CONSTITUTIONAL: ANY CHANGE IN YOUR MEDICAL CONDITION? NO . CHILLS NO . FEVER NO . INFECTION: DO YOU HAVE NEW INFECTIONS? NO . DO YOU HAVE HISTORY OF MRSA? NO . MUSCULOSKELETAL: ANY NEW PATTERNS OF PAIN OR NUMBNESS? NO . GASTROENTEROLOGY: ANY NEW CHANGE IN BOWEL CONTROL? NO . GENITOURINARY: ANY NEW CHANGE IN BLADDER CONTROL? NO . IS THERE A CHANCE YOU COULD BE ? NO . HEMATOLOGY/LYMPH: DO YOU TAKE ANY BLOOD THINNERS? (FOR EXAMPLE- COUMADIN, PLAVIX, AGGRENOX, PLATEL, PRADAXA, OR XARELTO) NO . WHEN WAS YOUR LAST DOSE? DATE: TIME: . NEUROLOGY: HAVE YOU FALLEN IN THE PAST 12 MONTHS? NO . ANY NEW EXTREMITY NUMBNESS OR WEAKNESS? PT REPORTS A NEW PAIN RADIATING DOWN LEFT LEG, BEFORE IT WENT DOWN RIGHT LEG . CARDIOLOGY: DO YOU HAVE A PACEMAKER OR DEFIBRILLATOR? NO . RESPIRATORY: HAVE YOU BEEN SICK IN THE PAST WEEK? NO . FEVER NO . FLU LIKE SYMPTOMS? NO . COUGH NO . INTEGUMENTARY: DO YOU HAVE ANY RASHES OR OPEN SORES? NO . ALLERGIC/IMMUNO: ARE YOU ALLERGIC TO IV DYE? NO . ANY NEW ALLERGIES? NO . PSYCHIATRIC: DO YOU HAVE THOUGHTS OF HURTING YOURSELF OR SOMEONE ELSE? NO . ARE YOU ABUSED, NEGLECTED, OR IN AN UNSAFE ENVIRONMENT? NO . ENDOCRINOLOGY: ARE YOU DIABETIC? YES . OTHER: DO YOU NEED ANY PRESCRIPTIONS? NO . IF YES, PLEASE LIST: ____ . ANY NEW PROBLEMS WITH YOUR MEDICATIONS? NO . WHEN DID YOU LAST EAT? ____ . WHEN DID YOU LAST DRINK? ____ . WHAT DID YOU LAST DRINK? ____ . NAME OF PERSON DRIVING YOU HOME? ____ . DO YOU HAVE ANY OTHER QUESTIONS OR CONCERNS NO . VITAL SIGNS WT 248.6 LBS, HT 74 IN, BMI 31.91 INDEX, BP 138/79 MM HG, HR 104 /MIN, RR 18 /MIN, TEMP 98.4 F, OXYGEN SAT % 97%, SAFE IN ENV? (Y/N) YES, NA INITIALS SC 14:16, REVIEWED BY: VIVI. EXAMINATION GENERAL EXAMINATION: LUNGS:LUNG SOUNDS ARE CLEAR. HEART:HEART RATE REGULAR. MUSCULOSKELETAL:*, MUSCLE STRENGTH TESTING 5/5 BILATERAL LOWER EXTREMITIES.TRIGGER POINT ELICITED OVER LEFT >RIGHT LUMBAR PARASPINAL WITH RESTRICTION OF ROJM NOTED.. ASSESSMENTS MYALGIA - M79.1 (PRIMARY) LUMBOSACRAL SPONDYLOSIS WITHOUT MYELOPATHY - M47.817 TREATMENT MYALGIA NOTES: HOME EXCERSISE /STRETCHING. PROCEDURE CODES FA211 ESTABILISHED PATIENT [facility] CHARGE DISPOSITION & COMMUNICATION FOLLOW UP D/C PATIENT IS MOVING ELECTRONICALLY SIGNED BY NOE DUNCAN ON 12/12/2018 AT 06:35 PM EDT DISCLAIMER : THIS IS A VISIT SUMMARY EXTRACTED FROM THE [employer] CHART. IT IS NOT A COPY OF THE [employer] PROGRESS NOTE. BRANDAN
== END ==
LOC: M PAIN 14:15
PROVIDERS: ATTEND Nurse Practitioner Family
DX: M79.18 Myalgia, other site (principal); M47.817 Spondylosis without myelopathy or radiculopathy, lumbosacral region; N18.3 Chronic kidney disease, stage 3 (moderate); E78.5 Hyperlipidemia, unspecified; M81.0 Age-related osteoporosis without current pathological fracture; J45.30 Mild persistent asthma, uncomplicated; G43.909 Migraine, unspecified, not intractable, without status migrainosus; G47.33 Obstructive sleep apnea (adult) (pediatric); E53.8 Deficiency of other specified B group vitamins; E11.9 Type 2 diabetes mellitus without complications; Z86.14 Personal history of Methicillin resistant Staphylococcus aureus infection; Z86.59 Personal history of other mental and behavioral disorders; Z88.0 Allergy status to penicillin; Z88.1 Allergy status to other antibiotic agents; Z88.8 Allergy status to other drugs, medicaments and biological substances; Z91.018 Allergy to other foods; Z91.02 Food additives allergy status; Z79.82 Long term (current) use of aspirin; Z79.84 Long term (current) use of oral hypoglycemic drugs; Z79.899 Other long term (current) drug therapy